=== PATIENT | male | born 1935 | race Caucasian/White ===

== ENCOUNTER 2017-04-09 10:22 | Inpatient (IN) | payer OTHER, MEDICARE ==
[2017-04-09] VITALS (10 sets, daily range): BP systolic 92–125; BP diastolic 50–64; PULSE 97–155; RESP 16–26; TEMP 96.3–98.3; O2SAT 76–98
[~2017-04-09] VITALS: Ht 172.7 cm; Wt 71.0 kg
[2017-04-09] MEDS ORDERED: SODIUM CHLORIDE 0.9% FLUSH 10 ML FLUSH IVF PRN (10:45)
[2017-04-09] MEDS ORDERED: SODIUM CHLORID 0.9% 500 ML INJ 500 ML IV ONE (10:45)
--- NOTE | 2017-04-09 10:49 | PD ---
HPI Chief Complaint: General Weakness Time Seen by Provider: 10:31 Travel History International Travel<30 days: No Contact w/Intl Traveler<30days: No Traveled to known affect area: No History of Present Illness HPI 81-year-old male arrives describing generalized weakness for 2 weeks. He reports weight loss and decreased appetite. He states his thighs feel atrophied. He's had difficulty walking. He does report some dyspnea on exertion. He denies orthopnea. He's had no fever or vomiting. He denies change in urination. He's had no medication change. PFSH Past Medical History Blood Disorders: No Heart Rhythm Problems: No Cancer: No Cardiovascular Problems: Yes High Cholesterol: Yes Chest Pain: No Congestive Heart Failure: No Diabetes: Yes (NEW ONSET ) Endocrine: Yes Genitourinary: Yes (TRANSURETRAL RESECTION PROSTATE\) Hypertension: Yes Immune Disorder: No Kidney Stones: No Musculoskeletal: No Neurologic: No Psychiatric: No Respiratory: No Myocardial Infarction: No Radiation Therapy: No Renal Failure: No Thyroid Disease: No Past Surgical History Abdominal Surgery: No AICD: No Cardiac Surgery: No Ear Surgery: No Endocrine Surgery: No Eye Surgery: No Genitourinary Surgery: Yes (TRANSURETHRAL RESECTION) Gynecologic Surgery: No Joint Replacement: No Oral Surgery: No Pacemaker: No Thoracic Surgery: No Social History Alcohol Use: No Tobacco Use: No Substance Use: No Allergies-Medications (Allergen,Severity, Reaction): Coded Allergies: No Known Allergies (Verified Allergy, Unknown, 02/04/06) Reported Meds & Prescriptions Reported Meds & Active Scripts Active Reported Aspirin Adult Low Strength (Aspirin) 81 Mg Tabdr 81 Mg PO DAILY Centrum Silver Adult 50+ (Multiple Vitamins W/ Minerals) 1 Tab Tab 1 Tab PO DAILY Metformin (Metformin HCl) 1,000 Mg Tab 1,000 Mg PO BID With meals Zocor (Simvastatin) 40 Mg Tab 40 Mg PO HS Vasotec (Enalapril Maleate) 10 Mg Tab 10 Mg PO DAILY Coreg (Carvedilol) 3.125 Mg Tab 3.125 Mg PO BID Review of Systems Except as stated in HPI: all other systems reviewed are Neg General / Constitutional: No: Fever Physical Exam Narrative GENERAL: 81-year-old male pleasant no acute distress SKIN: Focused skin assessment warm/dry. HEAD: Atraumatic. Normocephalic. EYES: Pupils equal and round. No scleral icterus. No injection or drainage. ENT: No nasal bleeding or discharge. Mucous membranes pink and moist. NECK: Trachea midline. No JVD. CARDIOVASCULAR: Tachycardia. Regular. RESPIRATORY: No accessory muscle use. Clear to auscultation. Breath sounds equal bilaterally. GASTROINTESTINAL: Soft. No focus of tenderness. MUSCULOSKELETAL: No obvious deformities. No clubbing. No cyanosis. No edema. NEUROLOGICAL: Awake and alert. No obvious cranial nerve deficits. Motor grossly within normal limits. Normal speech. PSYCHIATRIC: Appropriate mood and affect; insight and judgment normal. Data Data Last Documented VS Vital Signs Date Time Temp Pulse Resp B/P Pulse Ox O2 Delivery O2 Flow Rate FiO2 04/09/17 12:29 97 16 103/59 93 Nasal Cannula 2 temperature is 97.6 according to the nurse Orders Complete Blood Count With Diff (04/09/17 10:40) Comprehensive Metabolic Panel (04/09/17 10:40) B-Type Natriuretic Peptide (04/09/17 10:40) Act Partial Throm Time (Ptt) (04/09/17 10:40) Prothrombin Time / Inr (Pt) (04/09/17 10:40) Magnesium (Mg) (04/09/17 10:40) Ckmb (Isoenzyme) Profile (04/09/17 10:40) Troponin I (04/09/17 10:40) Urinalysis - C+S If Indicated (04/09/17 10:40) Iv Access Insert/Monitor (04/09/17 10:40) Electrocardiogram (04/09/17 10:40) Ecg Monitoring (04/09/17 10:40) Oximetry (04/09/17 10:40) Oxygen Administration (04/09/17 10:40) Chest, Single Ap (04/09/17 10:40) Sodium Chloride 0.9% Flush (Ns Flush) (04/09/17 10:45) Sodium Chlorid 0.9% 500 Ml Inj (Ns 500 M (04/09/17 10:45) CKMB (04/09/17 10:50) CKMB% (04/09/17 10:50) Admit Order (Ed Use Only) (04/09/17 13:20) Piperacil-Tazo 3.375 Gm Premix (Zosyn 3. (04/09/17 13:30) Labs Laboratory Tests Test 04/09/17 04/09/17 10:50 13:20 White Blood Count 7.5 TH/MM3 Red Blood Count 4.26 MIL/MM3 Hemoglobin 11.9 GM/DL Hematocrit 34.2 % Mean Corpuscular Volume 80.4 FL Mean Corpuscular Hemoglobin 27.9 PG Mean Corpuscular Hemoglobin 34.7 % Concent Red Cell Distribution Width 15.2 % Platelet Count 157 TH/MM3 Mean Platelet Volume 7.7 FL Neutrophils (%) (Auto) 68.2 % Lymphocytes (%) (Auto) 23.6 % Monocytes (%) (Auto) 6.8 % Eosinophils (%) (Auto) 0.7 % Basophils (%) (Auto) 0.7 % Neutrophils # (Auto) 5.1 TH/MM3 Lymphocytes # (Auto) 1.8 TH/MM3 Monocytes # (Auto) 0.5 TH/MM3 Eosinophils # (Auto) 0.1 TH/MM3 Basophils # (Auto) 0.1 TH/MM3 CBC Comment AUTO DIFF Differential Total Cells 100 Counted Neutrophils % (Manual) 50 % Band Neutrophils % 16 % Lymphocytes % 26 % Monocytes % 4 % Neutrophils # (Manual) 5.3 TH/MM3 Metamyelocytes 3 % Myelocytes 1 % Nucleated Red Blood Cells 1 /100 WBC Differential Comment FINAL DIFF MANUAL Platelet Estimate NORMAL Platelet Morphology Comment NORMAL Prothrombin Time 12.0 SEC Prothromb Time International 1.1 RATIO Ratio Activated Partial 27.3 SEC Thromboplast Time Sodium Level 131 MEQ/L Potassium Level 4.9 MEQ/L Chloride Level 96 MEQ/L Carbon Dioxide Level 23.1 MEQ/L Anion Gap 12 MEQ/L Blood Urea Nitrogen 45 MG/DL Creatinine 1.74 MG/DL Estimat Glomerular Filtration 38 ML/MIN Rate Random Glucose 158 MG/DL Calcium Level 9.5 MG/DL Magnesium Level 2.0 MG/DL Total Bilirubin 1.5 MG/DL Aspartate Amino Transf 99 U/L (AST/SGOT) Alanine Aminotransferase 15 U/L (ALT/SGPT) Alkaline Phosphatase 3613 U/L Total Creatine Kinase 1211 U/L Creatine Kinase MB 1.7 NG/ML Creatine Kinase MB % 0.1 % Troponin I 0.02 NG/ML B-Type Natriuretic Peptide 21 PG/ML Total Protein 6.9 GM/DL Albumin 3.1 GM/DL Urine Color LIGHT-YELLOW Urine Turbidity CLEAR Urine pH 5.0 Urine Specific [place] 1.009 Urine Protein NEG mg/dL Urine Glucose (UA) NEG mg/dL Urine Ketones NEG mg/dL Urine Occult Blood NEG Urine Nitrite NEG Urine Bilirubin NEG Urine Urobilinogen LESS THAN 2.0 MG/DL Urine Leukocyte Esterase NEG Urine RBC LESS THAN 1 /hpf Urine WBC 1 /hpf Urine Hyaline Casts 5 /lpf Urine Mucus FEW /lpf Microscopic Urinalysis Comment CULT NOT INDICATED MDM Medical Decision Making Medical Screen Exam Complete: Yes Emergency Medical Condition: Yes Medical Record Reviewed: Yes Differential Diagnosis UTI, electrolyte imbalance, Sepsis, anemia, renal failure, dehydration Narrative Course CBC & BMP Diagram 04/09/17 10:50 EKG reveals a sinus rhythm with a rate of 99 T bilirubin 1.5 AST 99 Alk phos 3613 Total CK 1211 Tn 0.02 BNP 21 Last 24 hours Impressions Chest X-Ray 04/09/17 1040 Signed Impressions: Service Date/Time: Sunday, April 09, 2017 10:46 - CONCLUSION: 1. No active disease. Pankaj Mena MD Heart rate is about 100 after 2 L of normal saline. Bandemia weakness elevated alkaline phosphatase in the 81-year-old male or concerned. Tachycardia on arrival concerning as well. Infectious process is of concern. Zosyn started. Possible neoplastic process. D/w Dr Alston of [facility]. Diagnosis Primary Impression: Bandemia without diagnosis of specific infection Additional Impressions: Weakness Elevated alkaline phosphatase level Admitting Information Admitting Physician Requests: Admit Morgan Santacruz MD April 09, 2017 10:49
[2017-04-09 11:10] LABS: AUTOMATED NEUTROPHIL # 5.1 TH/MM3 (1.8-7.7); BASOPHIL # 0.1 TH/MM3 (0-0.2); BASOPHIL % 0.7 % (0.0-2.0); EOSINOPHIL # 0.1 TH/MM3 (0-0.4); EOSINOPHIL % 0.7 % (0.0-4.0); HEMATOCRIT 34.2 % (39.0-51.0); LYMPH % 23.6 % (9.0-44.0); LYMPHOCYTE # 1.8 TH/MM3 (1.0-4.8); MEAN CELL VOLUME 80.4 FL (80.0-100.0); MEAN CORPUSCULAR HEMOGLOBIN 27.9 PG (27.0-34.0); MEAN CORPUSCULAR HGB CONC 34.7 % (32.0-36.0); MONO % 6.8 % (0.0-8.0); NEUT % 68.2 % (16.0-70.0); PLATELET COUNT 157 TH/MM3 (150-450); RED BLOOD COUNT 4.26 MIL/MM3 (4.50-5.90); RED CELL DISTRIBUTION WIDTH 15.2 % (11.6-17.2); WHITE BLOOD COUNT 7.5 TH/MM3 (4.0-11.0)
[2017-04-09 11:18] LABS: HEMO FLAGS AUTO DIFF
--- NOTE | 2017-04-09 11:25 | RADRPT ---
EXAM DATE/TIME: 04/09/2017 10:46 [facility] COMPARISON: No previous studies available for comparison. INDICATIONS : Short of breath MEDICAL HISTORY : Unknown SURGICAL HISTORY : Unknown ENCOUNTER: Initial ACUITY: 1 day PAIN SCORE: Non-responsive. LOCATION: Bilateral chest FINDINGS: A single view of the chest demonstrates the lungs to be symmetrically aerated without evidence of mas s, infiltrate or effusion. The cardiomediastinal contours are unremarkable except for atheroscleroti c and mildly tortuous aorta. 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 CONCLUSION: 1. No active disease. Pankaj Mena MD on April 09, 2017 at 11:22 Board Certified Radiologist. This report was verified electronically.
[2017-04-09 11:29] LABS: ALT (GPT) 15 U/L (12-78); ANION GAP 12 MEQ/L (5-15); AST (GOT) 99 U/L (15-37); BICARBONATE 23.1 MEQ/L (21.0-32.0); BLOOD UREA NITROGEN 45 MG/DL (7-18); CHLORIDE 96 MEQ/L (98-107); GLOMERULAR FILTRATION RATE 38 ML/MIN (>89); POTASSIUM 4.9 MEQ/L (3.5-5.1); SODIUM (NA) 131 MEQ/L (136-145)
[2017-04-09 11:32] LABS: APTT (PATIENT) 27.3 SEC (24.3-30.1); INTERNATIONAL NORMALIZED RATIO 1.1 RATIO
[2017-04-09 11:45] LABS: CREATINE KINASE 1211 U/L (39-308); TOTAL BILIRUBIN ADULT 1.5 MG/DL (0.2-1.0)
[2017-04-09 11:54] LABS: BANDS 16 % (0-6); CORRECTED NUCLEATED RBC 1 /100 WBC (0-0); METAMYELOCYTES 3 % (0-1); MYELOCYTES 1 % (0-0); NEUTROPHIL # MANUAL DIFF 5.3 TH/MM3 (1.8-7.7); POLYS (SEG NEUTROPHILS) 50 % (16-70); WBC DIFF SAMPLE 100
[2017-04-09 11:56] LABS: PLATELET ESTIMATE SMEAR NORMAL (NORMAL); PLATELET MORPHOLOGY NORMAL (NORMAL); SCAN/DIFF FINAL DIFF MANUAL
[2017-04-09 12:25] LABS: ALKALINE PHOSPHATASE 3613 U/L (45-117)
[2017-04-09 12:27] LABS: CKMB 1.7 NG/ML (0.5-3.6)
[2017-04-09] MEDS ORDERED: PIPERACIL-TAZO 3.375 GM PREMIX 50 ML IV ONE (13:30)
[2017-04-09 13:34] LABS: BLOOD, URINE NEG (NEG); COMMENT (UR) CULT NOT INDICATED; CULTURE IF INDICATED CULT NOT INDICATED; GLUCOSE,URINE NEG (NEG); HYALINE CAST, URINE 5 /lpf (RARE); KETONE, URINE NEG (NEG); MUCUS URINE FEW /lpf (OCC); NITRITE,URINE NEG (NEG); URINE COLOR LIGHT-YELLOW (YELLW/STRAW)
[2017-04-09] MEDS ORDERED: ASPI1TAB91 PO (13:36)
[2017-04-09] MEDS ORDERED: MULT1TAB PO (13:36)
[2017-04-09] MEDS ORDERED: VASO10TA8 PO (13:36)
[2017-04-09] MEDS ORDERED: ZOCO40TA PO (13:36)
[2017-04-09] MEDS ORDERED: METF1000 PO (13:36)
[2017-04-09] MEDS ORDERED: CARV3.125 PO (13:36)
[2017-04-09] MEDS ORDERED: ONDANSETRON HCL 4 MG/2 ML VIAL IVP PRN (13:45)
[2017-04-09] MEDS ORDERED: NALOXONE HCL 0.4 MG/ML AMP IV PRN (13:45)
[2017-04-09] MEDS ORDERED: SENNOSIDES 8.6 MG TAB PO PRN (13:45)
[2017-04-09] MEDS ORDERED: LACTULOSE SYRUP 20 GM/30 ML CUP PO PRN (13:45)
[2017-04-09] MEDS ORDERED: BISACODYL 10 MG SUPP RECTAL PRN (13:45)
[2017-04-09] MEDS ORDERED: MAGNESIUM HYDROXIDE SUSP 30 ML CUP PO PRN (13:45)
[2017-04-09] MEDS: SODIUM CHLOR 0.9% 1000 ML INJ 1,000 ML IV SCH (14:17)
--- NOTE | 2017-04-09 14:21 | HHI.HP ---
[facility] Service [facility] Primary Care Physician Unknown Admission Diagnosis Bandemia, Dehydration, Generalized Weakness Diagnoses: Chief Complaint: weight loss and fatigue Travel History International Travel<30 Days: No Contact w/Intl Traveler <30 Da: No Traveled to Known Affected Are: No History of Present Illness This is a pleasant 81-year-old male past medical history of coronary disease and congestive heart failure with ejection fraction of 30% who presented with 40 pound weight loss over 2 weeks, along with anorexia, and fatigue. Patient stated that he lost his appetite 2 weeks ago was not able to eat. Denying nausea vomiting or abdominal pain. Patient stated that he lost about 40 pounds over 2 weeks. He denies any fevers or chills. Denies any pain. Patient stated that he has never had a rectal exam or evaluation up for prostate cancer. Patient also stated that his last colonoscopy was done 8 years ago that was normal. Patient stated because of his severe weight loss he feels very fatigued and unable to ambulate due to weakness. Patient stated that he was scheduled for pacemaker with Dr. Callaway on April 15. Review of Systems Constitutional: COMPLAINS OF: Weight loss, DENIES: Diaphoretic episodes, Fatigue, Fever, Weight gain, Chills, Dizziness, Change in appetite, Night Sweats Endocrine: DENIES: Heat/cold intolerance, Polydipsia, Polyuria, Polyphagia Eyes: DENIES: Blurred vision, Diplopia, Eye inflammation, Eye pain, Vision loss , Photosensitivity, Double Vision Ears, nose, mouth, throat: DENIES: Tinnitus, Hearing loss, Vertigo, Nasal discharge, Oral lesions, Throat pain, Hoarseness, Ear Pain, Running Nose, Epistaxis, Sinus Pain, Toothache, Odynophagia Respiratory: DENIES: Apneas, Cough, Snoring, Wheezing, Hemoptysis, Sputum production, Shortness of breath Cardiovascular: DENIES: Chest pain, Palpitations, Syncope, Dyspnea on Exertion , PND, Lower Extremity Edema, Orthopnea, Claudication Gastrointestinal: COMPLAINS OF: Constipation, Anorexia, DENIES: Abdominal pain , Black stools, Bloody stools, Diarrhea, Nausea, Vomiting, Difficulty Swallowing Genitourinary: DENIES: Sexual dysfunction, Urinary frequency, Urinary incontinence, Urgency, Hematuria, Dysuria, Nocturia, Penile Discharge, Testicular Pain, Testicular Swelling Musculoskeletal: DENIES: Joint pain, Muscle aches, Stiffness, Joint Swelling, Back pain, Neck pain Integumentary: DENIES: Abnormal pigmentation, Nail changes, Pruritus, Rash Hematologic/lymphatic: DENIES: Bruising, Lymphadenopathy Immunologic/allergic: DENIES: Eczema, Urticaria Neurologic: DENIES: Abnormal gait, Headache, Localized weakness, Paresthesias, Seizures, Speech Problems, Tremor, Poor Balance Psychiatric: DENIES: Anxiety, Confusion, Mood changes, Depression, Hallucinations, Agitation, Suicidal Ideation, Homicidal Ideation, Delusions Past Family Social History Past Medical History Coronary artery disease Congestive heart failure with ejection fracture 30% Type 2 diabetes. Past Surgical History Denies any past surgical history. Reported Medications Reported Meds & Active Scripts Active Reported Aspirin Adult Low Strength (Aspirin) 81 Mg Tabdr 81 Mg PO DAILY Centrum Silver Adult 50+ (Multiple Vitamins W/ Minerals) 1 Tab Tab 1 Tab PO DAILY Metformin (Metformin HCl) 1,000 Mg Tab 1,000 Mg PO BID With meals Zocor (Simvastatin) 40 Mg Tab 40 Mg PO HS Vasotec (Enalapril Maleate) 10 Mg Tab 10 Mg PO DAILY Coreg (Carvedilol) 3.125 Mg Tab 3.125 Mg PO BID Allergies: Coded Allergies: No Known Allergies (Verified Allergy, Unknown, 02/04/06) Active Ordered Medications Current Medications Sodium Chloride 2 ml 2 ml UNSCH PRN IVF FLUSH AFTER USING IV ACCESS; Start at 10:45 Sodium Chloride 500 ml @ 500 mls/hr BOLUS ONCE IV Last administered on t 11:10; Start 04/09/17 at 10:45; Stop 04/09/17 at 11:44; Status DC Piperacillin Sod/ Tazobactam Sod (Zosyn 3.375 Gm Premix) 50 ml @ 100 mls/hr ONCE ONCE IV ; Start 04/09/17 at 13:30; Stop 04/09/17 at 13:59; Status DC Aspirin (Ecotrin Ec) 81 mg DAILY PO ; Start 04/10/17 at 09:00 Carvedilol (Coreg) 3.125 mg BID PO ; Start 04/09/17 at 21:00 Multivitamins/ Minerals Therapeutic (Theragran M Tab) 1 tab DAILY PO ; Start at 09:00 Pravastatin Sodium 80 mg 80 mg HS PO ; Start 04/09/17 at 21:00 Sodium Chloride (NS 1000 ml Inj) 1,000 ml @ 100 mls/hr Q10H IV ; Start at 13:44 Sodium Chloride (NS Flush) 2 ml UNSCH PRN IV FLUSH FLUSH AFTER USING IV ACCESS ; Start 04/09/17 at 13:45 Sodium Chloride (NS Flush) 2 ml BID IV FLUSH ; Start 04/09/17 at 21:00 Acetaminophen (Tylenol) 650 mg Q4H PRN PO TEMP > 100.4; Start 04/09/17 at 13:45 Ondansetron HCl (Zofran Inj) 4 mg Q6H PRN IVP NAUSEA OR VOMITING; Start at 13:45 Enoxaparin Sodium (Lovenox Inj) 40 mg Q24H SQ ; Start 04/09/17 at 15:00 Naloxone HCl (Narcan Inj) 0.4 mg UNSCH PRN IV SEE LABEL COMMENTS; Start at 13:45 Senna/Docusate Sodium (Kylee-Colace) 1 tab BID PO ; Start 04/09/17 at 21:00 Magnesium Hydroxide (Milk Of Magnesia Liq) 30 ml Q12H PRN PO MILD - MODERATE CONSTIPATION; Start 04/09/17 at 13:45 Sennosides (Senokot) 17.2 mg Q12H PRN PO MODERATE - SEVERE CONSTIPATION; Start 04/09/17 at 13:45 Bisacodyl (Dulcolax Supp) 10 mg DAILY PRN RECTAL SEVERE CONSITIPATION; Start at 13:45 Lactulose (Lactulose Liq) 30 ml DAILY PRN PO SEVERE CONSITIPATION; Start at 13:45 Family History Patient stated that his father at the age of 50 due to [facility]. Social History Denying tobacco or alcohol use. Patient lives by himself. Physical Exam Vital Signs Vital Signs Date Time Temp Pulse Resp B/P Pulse Ox O2 Delivery O2 Flow Rate FiO2 04/09/17 12:29 97 16 103/59 93 Nasal Cannula 2 04/09/17 10:40 91 04/09/17 10:40 95 2 04/09/17 10:39 100 18 125/64 92 Room Air 04/09/17 10:35 92 Room Air 04/09/17 10:26 120 24 92/50 91 Room Air Physical Exam GENERAL: This is a well-nourished, well-developed patient, in no apparent distress. SKIN: No rashes, ecchymoses or lesions. Cool and dry. HEAD: Atraumatic. Normocephalic. No temporal or scalp tenderness. EYES: Pupils equal round and reactive. Extraocular motions intact. No scleral icterus. No injection or drainage. ENT: Nose without bleeding, purulent drainage or septal hematoma. Throat without erythema, tonsillar hypertrophy or exudate. Uvula midline. Airway patent. NECK: Trachea midline. No JVD or lymphadenopathy. Supple, nontender, no meningeal signs. CARDIOVASCULAR: Regular rate and rhythm without murmurs, gallops, or rubs. RESPIRATORY: Clear to auscultation. Breath sounds equal bilaterally. No wheezes , rales, or rhonchi. GASTROINTESTINAL: Abdomen soft, non-tender, nondistended. No hepato-splenomegaly , or palpable masses. No guarding. MUSCULOSKELETAL: Extremities without clubbing, cyanosis, or edema. No joint tenderness, effusion, or edema noted. No calf tenderness. Negative Homans sign bilaterally. NEUROLOGICAL: Awake and alert. Cranial nerves II through XII intact. Motor and sensory grossly within normal limits. Five out of 5 muscle strength in all muscle groups. Normal speech. Laboratory Laboratory Tests Test 04/09/17 04/09/17 10:50 13:20 White Blood Count 7.5 Red Blood Count 4.26 Hemoglobin 11.9 Hematocrit 34.2 Mean Corpuscular Volume 80.4 Mean Corpuscular Hemoglobin 27.9 Mean Corpuscular Hemoglobin 34.7 Concent Red Cell Distribution Width 15.2 Platelet Count 157 Mean Platelet Volume 7.7 Neutrophils (%) (Auto) 68.2 Lymphocytes (%) (Auto) 23.6 Monocytes (%) (Auto) 6.8 Eosinophils (%) (Auto) 0.7 Basophils (%) (Auto) 0.7 Neutrophils # (Auto) 5.1 Lymphocytes # (Auto) 1.8 Monocytes # (Auto) 0.5 Eosinophils # (Auto) 0.1 Basophils # (Auto) 0.1 CBC Comment AUTO DIFF Differential Total Cells 100 Counted Neutrophils % (Manual) 50 Band Neutrophils % 16 Lymphocytes % 26 Monocytes % 4 Neutrophils # (Manual) 5.3 Metamyelocytes 3 Myelocytes 1 Nucleated Red Blood Cells 1 Differential Comment FINAL DIFF MANUAL Platelet Estimate NORMAL Platelet Morphology Comment NORMAL Prothrombin Time 12.0 Prothromb Time International 1.1 Ratio Activated Partial 27.3 Thromboplast Time Sodium Level 131 Potassium Level 4.9 Chloride Level 96 Carbon Dioxide Level 23.1 Anion Gap 12 Blood Urea Nitrogen 45 Creatinine 1.74 Estimat Glomerular Filtration 38 Rate Random Glucose 158 Calcium Level 9.5 Magnesium Level 2.0 Total Bilirubin 1.5 Aspartate Amino Transf 99 (AST/SGOT) Alanine Aminotransferase 15 (ALT/SGPT) Alkaline Phosphatase 3613 Total Creatine Kinase 1211 Creatine Kinase MB 1.7 Creatine Kinase MB % 0.1 Troponin I 0.02 B-Type Natriuretic Peptide 21 Total Protein 6.9 Albumin 3.1 Urine Color LIGHT-YELLOW Urine Turbidity CLEAR Urine pH 5.0 Urine Specific [place] 1.009 Urine Protein NEG Urine Glucose (UA) NEG Urine Ketones NEG Urine Occult Blood NEG Urine Nitrite NEG Urine Bilirubin NEG Urine Urobilinogen LESS THAN 2.0 Urine Leukocyte Esterase NEG Urine RBC LESS THAN 1 Urine WBC 1 Urine Hyaline Casts 5 Urine Mucus FEW Microscopic Urinalysis Comment CULT NOT INDICATED Result Diagram: 04/09/17 1050 04/09/17 1050 Imaging Last Impressions Chest X-Ray 04/09/17 1040 Signed Impressions: Service Date/Time: Sunday, April 09, 2017 10:46 - CONCLUSION: 1. No active disease. Pankaj Mena MD Assessment and Plan Assessment and Plan 81-year-old male with General weakness/anorexia/40 pound weight loss over 2 weeks -Labs were obtained which showed elevated alkaline phosphatase and 3000. -Concerning for malignancy. Patient is asymptomatic except for anorexia. -We will get a GGT, PSA, CEA, CA 199. -Patient will need a CT scan but due to elevated renal function will need to hold off on that until improvement. Mildly elevated LFT -Patient is asymptomatic. -Will get a liver ultrasound. Type 2 diabetes -Due to renal sufficiency and anticipating contrast use will hold metformin. -Will put patient on insulin sliding scale. Acute versus chronic renal sufficiency -There is no baseline for comparison. -Patient does have elevated CK. We'll continue to monitor. Will give IV fluids. Patient already given normal stables in the ED. -Strict ins and outs. Rhabdomyolysis -Mild. -Will give IV fluids. Continue to monitor. Coronary artery disease/congestive heart failure -Will hold antihypertensive due to low blood pressure. -Otherwise resume aspirin. DVT prophylaxis -Lovenox renally dosed. Code Status full Discussed Condition With patient Physician Certification 2 Midnight Certification Type: Admission for Inpatient Services Order for Inpatient Services The services are ordered in accordance with Medicare regulations or non- Medicare payer requirements, as applicable. In the case of services not specified as inpatient-only, they are appropriately provided as inpatient services in accordance with the 2-midnight benchmark. Estimated LOS (days): 3 3 days is the estimated time the patient will need to remain in the hospital, assuming treatment plan goals are met and no additional complications. Post-Hospital Plan: Joanna Yip MD April 09, 2017 14:21
[2017-04-09] MEDS ORDERED: GLUCAGON 1 MG/ML VIAL OTHER PRN (14:30)
[2017-04-09] MEDS ORDERED: DEXTROSE 50% IN WATER 50 ML VIAL(D50) IV PRN (14:30)
[2017-04-09] MEDS ORDERED: ENOXAPARIN SODIUM 40 MG/0.4 ML SYRINGE SQ SCH (15:00)
[2017-04-09] MEDS: ENOXAPARIN SODIUM 40 MG/0.4 ML SYRINGE SQ SCH (15:09)
--- NOTE | 2017-04-09 16:02 | RADRPT ---
EXAM DATE/TIME: 04/09/2017 14:35 [facility] COMPARISON: No previous studies available for comparison. INDICATIONS : Increased lab values. MEDICAL HISTORY : Hypercholesterolemia. Hypertension. Diabetes. SURGICAL HISTORY : Transuretral resection prostate. ENCOUNTER: Initial ACUITY: 1 day PAIN SCORE: 0/10 LOCATION: Bilateral upper quadrant MEASUREMENTS: LIVER: 16.8 cm length COMMON DUCT: 5 mm RIGHT KIDNEY: 10.4 x 4.8 x 5.1 cm SPLEEN: 9.2 cm length FINDINGS: Ultrasound of the upper abdomen demonstrates increased echogenicity of the liver compatible with fatt y infiltration or hepatocellular disease. The spleen is unremarkable. There are multiple stones withi n the gallbladder without wall thickening or pericholecystic fluid the largest measuring 2 cm. Sludge is also present within the gallbladder. The visualized portion of the pancreas is unremarkable thoug h the entire gland is not visualized secondary to overlying bowel gas. There is a single simple cyst in the right kidney measuring 4.4 cm which is also echogenic characteristic of medical renal disease. CONCLUSION: 1. Cholelithiasis. 2. Echogenic liver compatible with fatty infiltration or hepatocellular disease. Alexandru Souza MD on April 09, 2017 at 15:58 Board Certified Radiologist. This report was verified electronically.
[2017-04-09] MEDS: INSULIN ASPART SUPPLEMENTAL SCALE SQ SCH ×2 (17:41→19:59)
[2017-04-09] MEDS: SODIUM CHLORIDE 0.9% FLUSH 10 ML FLUSH IV FLUSH SCH (19:47)
[2017-04-09] MEDS: DOCUSATE SODIUM 50 MG/SENNA 8.6 MG TAB PO SCH (19:47)
[2017-04-09] MEDS: CARVEDILOL 3.125 MG TAB PO SCH (19:49)
[2017-04-09] MEDS ORDERED: PRAVASTATIN SOD 80 MG TAB PO SCH (21:00)
--- NOTE | 2017-04-09 23:21 | HHI.PR ---
Subjective Remarks Frail, elderly man admitted earlier today with dehydration and general fatigue, recent weight loss. Has developed sustained tachycardia to 130s with increased O2 requirements. Lungs clear, comfortable respiratory pattern. Neck veins flat. Skin warm centrally, tepid peripherally. Abdomen benign, soft, no guarding. Skin turgor decreased. Labs reviewed. NOHEMI. Bandemia noteworthy. Impression: This may be simple dehydration but I'd be inclined to treat for sepsis as well. Continue PIP/DEMETRI, add blood cultures. Bolus with additional liter NS. Reassess. Leave on 7th floor for now. Objective Vital Signs Date Time Temp Pulse Resp B/P Pulse Ox O2 Delivery O2 Flow Rate FiO2 04/09/17 20:00 96.9 118 20 114/56 92 04/09/17 15:35 96.3 97 20 118/58 95 04/09/17 14:22 99 18 114/61 94 Nasal Cannula 2 04/09/17 12:29 97 16 103/59 93 Nasal Cannula 2 04/09/17 10:40 91 04/09/17 10:40 95 2 04/09/17 10:39 100 18 125/64 92 Room Air 04/09/17 10:35 92 Room Air 04/09/17 10:26 120 24 92/50 91 Room Air I/O 04/08/17 04/08/17 04/08/17 04/09/17 04/09/17 04/09/17 07:00 15:00 23:00 07:00 15:00 23:00 Intake Total 360 ml Output Total 200 ml Balance 160 ml Intake Oral 360 ml Output Urine Total 200 ml # Voids 1 Result Diagram: 04/09/17 1050 04/09/17 1050 Abimael Jeffers MD April 09, 2017 23:21
[2017-04-09] MEDS ORDERED: SODIUM CHLOR 0.9% 1000 ML INJ 1,000 ML IV ONE (23:45)
[2017-04-10] VITALS (17 sets, daily range): BP systolic 74–121; BP diastolic 43–56; PULSE 103–150; RESP 20–35; TEMP 97.9–99.3; O2SAT 76–100
[2017-04-10] MEDS: LEVOFLOXACIN 750 MG PREMIX INJ 150 ML IV SCH (00:31)
[2017-04-10] MEDS: SODIUM CHLOR 0.9% 1000 ML INJ 1,000 ML IV SCH ×3 (00:32→17:40)
[2017-04-10] MEDS: PIPERACIL-TAZO 3.375 GM PREMIX 50 ML IV SCH ×4 (02:12→16:44)
[2017-04-10] MEDS ORDERED: NOREPINEPHRINE-DEXTROSE DRIP 250 ML IV ONE (03:20)
--- NOTE | 2017-04-10 03:42 | PD.CONS ---
[facility] Service Critical Care Medicine Consult Requested By [facility] Reason for Consult Severe sepsis. Primary Care Physician Unknown History of Present Illness Frail, elderly man admitted earlier today with dehydration and general fatigue, recent weight loss. Has developed sustained tachycardia to 130s with increased O2 requirements. Now with worsening hypotension requiring vasopressor support. Review of Systems ROS No abdominal pain. No SOB. Past Family Social History Allergies: Coded Allergies: No Known Allergies (Verified Allergy, Unknown, 02/04/06) Physical Exam Vital Signs Vital Signs Date Time Temp Pulse Resp B/P Pulse Ox O2 Delivery O2 Flow Rate FiO2 04/10/17 03:25 99 Non-Rebreather 10.00 100 04/10/17 00:00 98.3 150 26 113/52 76 04/09/17 23:23 124 04/09/17 22:46 98 15.00 04/09/17 20:00 96.9 118 20 114/56 92 04/09/17 15:35 96.3 97 20 118/58 95 04/09/17 14:22 99 18 114/61 94 Nasal Cannula 2 04/09/17 12:29 97 16 103/59 93 Nasal Cannula 2 04/09/17 10:40 91 04/09/17 10:40 95 2 04/09/17 10:39 100 18 125/64 92 Room Air 04/09/17 10:35 92 Room Air 04/09/17 10:26 120 24 92/50 91 Room Air Physical Exam SBP 76, P 122, R 17, T 99.7 Head: Normal. Neck: Supple, airway widely patent. Lungs: Clear, no wheezes or crackles. Heart: Tachycardia at 120s, neck veins are flat. Abdomen: Soft, nontender, firm RUQ liver. No guarding or peritoneal irritation. Extremities: tepid, well perfused. Neuro: Lethargic, moves 4 limbs to command. Protects airway. Laboratory Laboratory Tests Test 04/09/17 04/09/17 04/09/17 04/10/17 10:50 13:20 18:37 00:05 White Blood Count 7.5 Red Blood Count 4.26 Hemoglobin 11.9 Hematocrit 34.2 Mean Corpuscular Volume 80.4 Mean Corpuscular Hemoglobin 27.9 Mean Corpuscular Hemoglobin 34.7 Concent Red Cell Distribution Width 15.2 Platelet Count 157 Mean Platelet Volume 7.7 Neutrophils (%) (Auto) 68.2 Lymphocytes (%) (Auto) 23.6 Monocytes (%) (Auto) 6.8 Eosinophils (%) (Auto) 0.7 Basophils (%) (Auto) 0.7 Neutrophils # (Auto) 5.1 Lymphocytes # (Auto) 1.8 Monocytes # (Auto) 0.5 Eosinophils # (Auto) 0.1 Basophils # (Auto) 0.1 CBC Comment AUTO DIFF Differential Total Cells 100 Counted Neutrophils % (Manual) 50 Band Neutrophils % 16 Lymphocytes % 26 Monocytes % 4 Neutrophils # (Manual) 5.3 Metamyelocytes 3 Myelocytes 1 Nucleated Red Blood Cells 1 Differential Comment FINAL DIFF MANUAL Platelet Estimate NORMAL Platelet Morphology Comment NORMAL Prothrombin Time 12.0 Prothromb Time International 1.1 Ratio Activated Partial 27.3 Thromboplast Time Sodium Level 131 Potassium Level 4.9 Chloride Level 96 Carbon Dioxide Level 23.1 Anion Gap 12 Blood Urea Nitrogen 45 Creatinine 1.74 Estimat Glomerular Filtration 38 Rate Random Glucose 158 Calcium Level 9.5 Magnesium Level 2.0 Total Bilirubin 1.5 Gamma Glutamyl Transpeptidase 53 Aspartate Amino Transf 99 (AST/SGOT) Alanine Aminotransferase 15 (ALT/SGPT) Alkaline Phosphatase 3613 Total Creatine Kinase 1211 Creatine Kinase MB 1.7 Creatine Kinase MB % 0.1 Troponin I 0.02 B-Type Natriuretic Peptide 21 Total Protein 6.9 Albumin 3.1 Urine Color LIGHT-YELLOW Urine Turbidity CLEAR Urine pH 5.0 Urine Specific Corinna 1.009 Urine Protein NEG Urine Glucose (UA) NEG Urine Ketones NEG Urine Occult Blood NEG Urine Nitrite NEG Urine Bilirubin NEG Urine Urobilinogen LESS THAN 2.0 Urine Leukocyte Esterase NEG Urine RBC LESS THAN 1 Urine WBC 1 Urine Hyaline Casts 5 Urine Mucus FEW Microscopic Urinalysis Comment CULT NOT INDICATED Carcinoembryonic Antigen 4.6 CA 19-9 Antigen 24.3 Lactic Acid Level 2.6 Date/Time Procedure Status Source Growth 04/10/17 00:15 Aerobic Blood Culture Received Blood Peripheral Pending 04/10/17 00:15 Anaerobic Blood Culture Received Blood Peripheral Pending Result Diagram: 04/09/17 1050 04/09/17 1050 Assessment and Plan Assessment and Plan Assessment: 1. Severe sepsis. 2. NOHEMI.. 3. Recent weight loss. 4. DM, 2 Plan: 1. Move to [facility]. 2. Levophed too keep MAP > 65. 3. [place]. 4. Aggressive hydration. 5. Review cultures. 6. Lactic acid, serial. 7. Protonix. 8. Heparin sq bid. Overall impression: This man is critically ill with ongoing severe sepsis and deteriorating hemodynamic status. He will require continued fluid resuscitation , antibiotics, and electrolyte adjustments during the next 12 hours. Critical Care 38 mins Abimael Jeffers MD April 10, 2017 03:42
[2017-04-10] MEDS: NOREPINEPHRINE 4 MG/D5W 250 ML IV SCH ×2 (05:46→11:30)
[2017-04-10] MEDS ORDERED: CHLORHEXIDINE GLUCONATE 2 % 1 PACK (2 CLOTHS)(extra cloths) TOPICAL PRN (06:30)
[2017-04-10] MEDS: INSULIN ASPART SUPPLEMENTAL SCALE SQ SCH (06:30)
[2017-04-10] MEDS: CARVEDILOL 3.125 MG TAB PO SCH (09:00)
[2017-04-10] MEDS: DOCUSATE SODIUM 50 MG/SENNA 8.6 MG TAB PO SCH ×2 (09:01→23:42)
[2017-04-10] MEDS: MULTIVITAMINS/MINERALS THERAPEUTIC TAB PO SCH (09:01)
[2017-04-10] MEDS: SODIUM CHLORIDE 0.9% FLUSH 10 ML FLUSH IV FLUSH SCH ×2 (09:02→21:00)
[2017-04-10] MEDS: ASPIRIN EC 81 MG TABEC PO SCH (09:02)
[2017-04-10 10:29] LABS: HEMATOCRIT 29.5 % (39.0-51.0); MEAN CELL VOLUME 80.6 FL (80.0-100.0); MEAN CORPUSCULAR HEMOGLOBIN 28.5 PG (27.0-34.0); MEAN CORPUSCULAR HGB CONC 35.3 % (32.0-36.0); PLATELET COUNT 113 TH/MM3 (150-450); RED BLOOD COUNT 3.66 MIL/MM3 (4.50-5.90); RED CELL DISTRIBUTION WIDTH 15.5 % (11.6-17.2); REVIEW FLAG FINAL; WHITE BLOOD COUNT 9.5 TH/MM3 (4.0-11.0)
--- NOTE | 2017-04-10 10:43 | HHI.CCPN ---
Subjective Remarks/Hospital Course Frail, elderly man admitted earlier today with dehydration and general fatigue, recent weight loss. Has developed sustained tachycardia to 130s with increased O2 requirements. Now with worsening hypotension requiring vasopressor support. 04/10 Patient is on Levophed 23 mics. Afebrile. Denies any CP/SOB, N/V abdominal pain Objective Vital Signs Date Time Temp Pulse Resp B/P Pulse Ox O2 Delivery O2 Flow Rate FiO2 04/10/17 08:58 94 Nasal Cannula 3.00 04/10/17 04:00 98.0 109 32 85/48 04/10/17 03:25 100 Intake and Output 04/09/17 04/09/17 04/10/17 08:00 16:00 00:00 Intake Total 2160 ml Output Total 700 ml Balance 1460 ml Result Diagram: 04/10/17 1012 04/09/17 1050 Other Results Laboratory Tests Test 04/09/17 04/09/17 04/09/17 04/10/17 10:50 13:20 18:37 00:05 White Blood Count 7.5 TH/MM3 Red Blood Count 4.26 MIL/MM3 Hemoglobin 11.9 GM/DL Hematocrit 34.2 % Mean Corpuscular Volume 80.4 FL Mean Corpuscular Hemoglobin 27.9 PG Mean Corpuscular Hemoglobin 34.7 % Concent Red Cell Distribution Width 15.2 % Platelet Count 157 TH/MM3 Mean Platelet Volume 7.7 FL Neutrophils (%) (Auto) 68.2 % Lymphocytes (%) (Auto) 23.6 % Monocytes (%) (Auto) 6.8 % Eosinophils (%) (Auto) 0.7 % Basophils (%) (Auto) 0.7 % Neutrophils # (Auto) 5.1 TH/MM3 Lymphocytes # (Auto) 1.8 TH/MM3 Monocytes # (Auto) 0.5 TH/MM3 Eosinophils # (Auto) 0.1 TH/MM3 Basophils # (Auto) 0.1 TH/MM3 CBC Comment AUTO DIFF Differential Total Cells 100 Counted Neutrophils % (Manual) 50 % Band Neutrophils % 16 % Lymphocytes % 26 % Monocytes % 4 % Neutrophils # (Manual) 5.3 TH/MM3 Metamyelocytes 3 % Myelocytes 1 % Nucleated Red Blood Cells 1 /100 WBC Differential Comment FINAL DIFF MANUAL Platelet Estimate NORMAL Platelet Morphology Comment NORMAL Prothrombin Time 12.0 SEC Prothromb Time International 1.1 RATIO Ratio Activated Partial 27.3 SEC Thromboplast Time Sodium Level 131 MEQ/L Potassium Level 4.9 MEQ/L Chloride Level 96 MEQ/L Carbon Dioxide Level 23.1 MEQ/L Anion Gap 12 MEQ/L Blood Urea Nitrogen 45 MG/DL Creatinine 1.74 MG/DL Estimat Glomerular Filtration 38 ML/MIN Rate Random Glucose 158 MG/DL Calcium Level 9.5 MG/DL Magnesium Level 2.0 MG/DL Total Bilirubin 1.5 MG/DL Gamma Glutamyl Transpeptidase 53 U/L Aspartate Amino Transf 99 U/L (AST/SGOT) Alanine Aminotransferase 15 U/L (ALT/SGPT) Alkaline Phosphatase 3613 U/L Total Creatine Kinase 1211 U/L Creatine Kinase MB 1.7 NG/ML Creatine Kinase MB % 0.1 % Troponin I 0.02 NG/ML B-Type Natriuretic Peptide 21 PG/ML Total Protein 6.9 GM/DL Albumin 3.1 GM/DL Urine Color LIGHT-YELLOW Urine Turbidity CLEAR Urine pH 5.0 Urine Specific [place] 1.009 Urine Protein NEG mg/dL Urine Glucose (UA) NEG mg/dL Urine Ketones NEG mg/dL Urine Occult Blood NEG Urine Nitrite NEG Urine Bilirubin NEG Urine Urobilinogen LESS THAN 2.0 MG/DL Urine Leukocyte Esterase NEG Urine RBC LESS THAN 1 /hpf Urine WBC 1 /hpf Urine Hyaline Casts 5 /lpf Urine Mucus FEW /lpf Microscopic Urinalysis Comment CULT NOT INDICATED Carcinoembryonic Antigen 4.6 NG/ML CA 19-9 Antigen 24.3 U/ML Lactic Acid Level 2.6 mmol/L Test 04/10/17 10:12 White Blood Count 9.5 TH/MM3 Red Blood Count 3.66 MIL/MM3 Hemoglobin 10.4 GM/DL Hematocrit 29.5 % Mean Corpuscular Volume 80.6 FL Mean Corpuscular Hemoglobin 28.5 PG Mean Corpuscular Hemoglobin 35.3 % Concent Red Cell Distribution Width 15.5 % Platelet Count 113 TH/MM3 Mean Platelet Volume 7.5 FL Imaging Last Impressions Chest X-Ray 04/09/17 1040 Signed Impressions: Service Date/Time: Sunday, April 09, 2017 10:46 - CONCLUSION: 1. No active disease. Pankaj Mena MD Liver Ultrasound 04/09/17 0000 Signed Impressions: Service Date/Time: Sunday, April 09, 2017 14:35 - CONCLUSION: 1. Cholelithiasis. 2. Echogenic liver compatible with fatty infiltration or hepatocellular disease. Alexandru Souza MD Objective Remarks GENERAL: Patient is 81 yo lying in bed in NAD SKIN: Warm and dry. HEAD: Normocephalic. EYES: No scleral icterus. No injection or drainage. NECK: Supple, trachea midline. No JVD or lymphadenopathy. CARDIOVASCULAR: Regular rate and rhythm without murmurs, gallops, or rubs. RESPIRATORY: Breath sounds equal bilaterally. No accessory muscle use. GASTROINTESTINAL: Abdomen soft, non-tender, nondistended. MUSCULOSKELETAL: No cyanosis, or edema. BACK: Nontender without obvious deformity. No CVA tenderness. Neuro: Awake and alert. A/P Assessment and Plan 1)Resp Insuff 2)Sepsis. 3)NOHEMI.. 4)Elevated CK's 5)Dehydration 6)Anemia 7)Hx HTN 8)Hx DM 9)Elevated LFT's Plan: Neuro: Awake and alert Pulm: Continue with oxygen keep sat >92% Bronchodilators CV: Wean off Levophed keep MAP>65mmHg Will give 1L NS bolus then NS@125ml/hr, CVP monitoring Check echo to eval V function. Continue with ASA 81mg daily, hold Pravachol for elevated LFT : Monitor renal function, I/O's, electrolytes replacement as needed. Continue with IVF- monitor CK's. GI: On PO diet, place on Protonix 40mg daily for GI prophylaxis Monitor LFT;s, US Liver: Cholelithiasis. Echogenic liver compatible with fatty infiltration or hepatocellular disease. GI eval, check AFP, check CT abd/pelvis ID: Continue with abx ( Zosyn, Levaquin)monitor for signs of infections ( fever , WBC) Follow up on BC. CXR: No acute disease, UA unremarkable. Heme: Monitor CBC Endo: SSI with accuchecks GI prophylaxis- Protonix 40mg daily DVT prophylaxis- Lovenox 30mg daily Place central line for hemodynamic monitoring Patient is critically ill with sepsis, ARF, lactic acidemia CCT 30 mins Cherelle Palmer MD April 10, 2017 10:43 Cherelle Palmer MD April 10, 2017 10:43
[2017-04-10] MEDS ORDERED: SODIUM CHLOR 0.9% 1000 ML INJ 1,000 ML IV ONE ×2 (10:45→14:45)
[2017-04-10 10:51] LABS: BICARBONATE 19.4 MEQ/L (21.0-32.0); POTASSIUM 4.8 MEQ/L (3.5-5.1)
[2017-04-10] MEDS ORDERED: DEXTROSE 50% IN WATER 50 ML VIAL(D50) IV PRN (11:15)
[2017-04-10] MEDS ORDERED: GLUCAGON 1 MG/ML VIAL OTHER PRN (11:15)
[2017-04-10] MEDS: PANTOPRAZOLE SODIUM 40 MG VIAL IV PUSH SCH (11:20)
[2017-04-10] MEDS: INSULIN NovoLIN REGULAR SUPPLEMENTAL SCALE SQ SCH ×3 (11:23→23:15)
[2017-04-10] MEDS ORDERED: HYDROCORTISONE SOD SUCCINATE 100 MG VIAL IV PUSH SCH (12:00)
[2017-04-10 12:02] LABS: INDIRECT BILIRUBIN 2.1 MG/DL (0.0-0.8); TOTAL BILIRUBIN ADULT 4.6 MG/DL (0.2-1.0)
[2017-04-10 12:10] LABS: CKMB 1.4 NG/ML (0.5-3.6)
[2017-04-10] MEDS ORDERED: INSULIN ASPART SUPPLEMENTAL SCALE SQ SCH (13:00)
--- NOTE | 2017-04-10 14:18 | PD.PROCEDR ---
Central Line Procedure REASON FOR PROCEDURE Central venous access PROCEDURE PERFORMED Central line placement: Right IJ CVP CONSENT Informed consent for procedure was obtained. The risks and benefits of the procedure were discussed to include but limited to bleeding, clot formation, infection, and even . ANESTHESIA Local injection of 1% Lidocaine DESCRIPTION OF THE PROCEDURE The patient was placed in supine, mild Trendelenburg position. The area was exposed and cleansed with ChloraPrep, times two. Large sterile drape was used to cover the patient, with the site exposed, under sterile conditions including cap, face mask, sterile gown, and sterile gloves. On single attempt, the introducer needle was inserted with negative pressure in syringe and venous flash was obtained. The guide wire was then advanced without any restriction and the needle was removed. The dilator was used without any complications. Using Seldinger technique the catheter was advanced over the guide wire to a depth of 20 centimeters. The guide wire was removed. All ports were aspirated with dark venous blood return and flushed easily with sterile saline. All ports were capped. Antibiotic disc was placed around central line at puncture site. The central line was secured to the skin with two interrupted 2.0 silk sutures. The area was bandaged with sterile see-through central line bandage. RADIOLOGICAL DATA US used to localize IJ vein. CXR ordered to verify line placement COMPLICATIONS: No apparent complications ESTIMATED BLOOD LOSS: Less than 1 cc. Cherelle Palmer MD April 10, 2017 14:18
--- NOTE | 2017-04-10 15:06 | PD.CONS ---
HPI History of Present Illness Mr. Luis is a 81 y/o male with CAD, diabetes and CHF with EF of 30%. He was admitted to [facility] on 04/09/17 with generalized weakness, 40 pound weight loss over 2 weeks, anorexia, and fatigue. Patient stated that he lost his appetite 2 weeks ago has not been eating much. He also reports that for the last week or so he has had mid abdominal discomfort. Pt is unable to really describe the discomfort. He states that he has felt more constipated as well. He last had a BM 3 days ago which was reportedly normal. Pt denies any nausea/vomiting, diarrhea, fevers or chills. Patient stated that he has never had a rectal exam or evaluation up for prostate cancer. Patient also stated that his last colonoscopy was done 8 years ago that was normal. He reports that he is scheduled for pacemaker placement with Dr. Pa on 04/15/17. His WBC count was stable at admission. His LFTs were elevated espeically his AlkPhos was 3613. Transaminases were slightly elevated with AST 99, ALT 15, and Tbili was 1.5. GGT was 53. PSA was ordered and is pending. CEA was 4,6, CA 19-9 was 24.3, and AFP was 0.8. His Lactic acid was elevated at admission to 2.6 and repeat increased to 3.5 today. He was transferred to [facility] during the night last night with sustained tachycardia into the 130s with increased O2 requirements, and hypotension requiring vasopressor support. Liver US noted cholelithiasis and echogenic liver compatible with fatty infiltration or hepatocellular disease. Repeat LFTs today noted Tbili 4.6, DBili 2.5, IBili 2.1, AST 258, ALT 103, AlkPhos 2740. (Niyah Whiteside) PFSH Past Medical History Coronary artery disease Congestive heart failure with reported EF of 30% Diabetes mellitus Past Surgical History Ventral hernia repair with mesh (Niyah Whiteside) Coded Allergies: No Known Allergies (Verified Allergy, Unknown, 02/04/06) Family History Patient stated that his father at the age of 50 due to [place]. Social History Denying tobacco or alcohol use. Patient lives by himself. He states that he has 4 children who live in [place]. (Niyah Whiteside) Review of Systems Constitutional: COMPLAINS OF: Weight loss, Change in appetite, DENIES: Fever, Chills, Night Sweats Respiratory: DENIES: Cough, Wheezing, Shortness of breath Cardiovascular: DENIES: Chest pain, Palpitations, Lower Extremity Edema Gastrointestinal: COMPLAINS OF: Abdominal pain, Constipation, DENIES: Black stools, Bloody stools, Diarrhea, Nausea, Vomiting, Heartburn, Hematemesis Genitourinary: DENIES: Hematuria Musculoskeletal: DENIES: Neck pain Integumentary: DENIES: Rash Neurologic: DENIES: Headache Psychiatric: DENIES: Anxiety, Confusion (Niyah Whiteside) GI Exam Vitals I&O Vital Signs Date Time Temp Pulse Resp B/P Pulse Ox O2 Delivery O2 Flow Rate FiO2 04/10/17 12:00 104 04/10/17 12:00 97.9 104 28 96/52 95 04/10/17 10:00 103 04/10/17 08:58 94 Nasal Cannula 3.00 04/10/17 08:00 104 04/10/17 08:00 98.1 104 22 84/50 95 04/10/17 04:00 98.0 109 32 85/48 99 04/10/17 03:25 99 Non-Rebreather 10.00 100 04/10/17 03:20 96 Nasal Cannula 3.00 04/10/17 02:00 98.7 133 26 74/43 100 04/10/17 01:20 91 04/10/17 01:00 125 20 99 04/09/17 23:23 124 04/09/17 22:46 98 15.00 04/09/17 22:40 98.3 155 26 113/52 76 04/09/17 20:00 96.9 118 20 114/56 92 04/09/17 15:35 96.3 97 20 118/58 95 I/O 04/09/17 04/09/17 04/09/17 04/10/17 04/10/17 04/10/17 07:00 15:00 23:00 07:00 15:00 23:00 Intake Total 1160 ml 2280 ml Output Total 200 ml 1250 ml Balance 960 ml 1030 ml Intake Oral 360 ml 80 ml IV Total 800 ml 2200 ml Output Urine Total 200 ml 1250 ml # Voids 1 # Bowel Movements 0 Imaging Last Impressions Chest X-Ray 04/09/17 1040 Signed Impressions: Service Date/Time: Sunday, April 09, 2017 10:46 - CONCLUSION: 1. No active disease. Pankaj Mena MD Liver Ultrasound 04/09/17 0000 Signed Impressions: Service Date/Time: Sunday, April 09, 2017 14:35 - CONCLUSION: 1. Cholelithiasis. 2. Echogenic liver compatible with fatty infiltration or hepatocellular disease. Alexandru Souza MD Laboratory Test 04/09/17 04/10/17 04/10/17 04/10/17 18:37 00:05 03:00 10:12 Carcinoembryonic Antigen 4.6 NG/ML CA 19-9 Antigen 24.3 U/ML Lactic Acid Level 2.6 mmol/L Nasal Screen MRSA (PCR) MRSA NOT DETECTED White Blood Count 9.5 TH/MM3 Red Blood Count 3.66 MIL/MM3 Hemoglobin 10.4 GM/DL Hematocrit 29.5 % Mean Corpuscular Volume 80.6 FL Mean Corpuscular Hemoglobin 28.5 PG Mean Corpuscular Hemoglobin 35.3 % Concent Red Cell Distribution Width 15.5 % Platelet Count 113 TH/MM3 Mean Platelet Volume 7.5 FL Sodium Level 133 MEQ/L Potassium Level 4.8 MEQ/L Chloride Level 100 MEQ/L Carbon Dioxide Level 19.4 MEQ/L Anion Gap 14 MEQ/L Blood Urea Nitrogen 33 MG/DL Creatinine 2.16 MG/DL Estimat Glomerular Filtration 30 ML/MIN Rate Random Glucose 277 MG/DL Calcium Level 7.7 MG/DL Test 04/10/17 11:20 Lactic Acid Level 3.5 mmol/L Total Bilirubin 4.6 MG/DL Direct Bilirubin 2.5 MG/DL Indirect Bilirubin 2.1 MG/DL Aspartate Amino Transf 258 U/L (AST/SGOT) Alanine Aminotransferase 103 U/L (ALT/SGPT) Alkaline Phosphatase 2740 U/L Total Creatine Kinase 898 U/L Creatine Kinase MB 1.4 NG/ML Creatine Kinase MB % 0.2 % Total Protein 5.1 GM/DL Albumin 2.1 GM/DL Tumor Marker Alpha Fetoprotein 0.8 NG/ML Date/Time Procedure Status Source Growth 04/10/17 00:15 Aerobic Blood Culture Received Blood Peripheral Pending 04/10/17 00:15 Anaerobic Blood Culture Received Blood Peripheral Pending Physical Examination GENERAL: Thin elderly male in NAD HEENT: Pupils round and reactive to light; normocephalic; atraumatic; no jaundice. Throat is clear. NECK: Neck is supple, nontender, central line in right side of the neck CHEST: CTA CARDIAC: Tachy ABDOMEN: +BS, soft, nondistended, nontender EXTREMITIES: No clubbing, cyanosis, or edema. SKIN: Normal; no rash; no jaundice. BRIQUETTE MOLDER: No focal deficits; alert and oriented times three. (Niyah Whiteside) Assessment and Plan Plan ASSESSMENT: - Elevated LFTs. Pt was admitted with generalized weakness, 40 pound weight loss over 2 weeks, anorexia, abdominal pain and constipation. He last had a BM 3 days ago which was reportedly normal. Pt denies any nausea/vomiting, diarrhea, fevers or chills. His LFTs were elevated especially his AlkPhos was 3613. Transaminases were slightly elevated with AST 99, ALT 15, and Tbili was 1.5. GGT was 53. Liver US (04/09) --> noted cholelithiasis and echogenic liver compatible with fatty infiltration or hepatocellular disease. PSA was ordered and is pending. CEA was 4,6, CA 19- 9 was 24.3, and AFP was 0.8. His Lactic acid was elevated at admission to 2.6 and repeat increased to 3.5 today. He was transferred to [facility] during the night last night with sustained tachycardia into the 130s with increased O2 requirements, and hypotension requiring vasopressor support. Repeat LFTs today noted Tbili 4.6, DBili 2.5, IBili 2.1, AST 258, ALT 103, AlkPhos 2740. The increase in the transaminases and Bilirubin may be secondary to a hypotensive insult. The pt may have some underlying liver disease, etiology of which is unclear. Pt denies any alcohol use or hx of viral hepatitis. Denies any new medications or medication changes. - Weight loss and poor appetite, pt reportedly has lost 40lbs in [address] Chest/Abd/pelvis is ordered. PSA is pending. CEA/AFP/Ca 19-9 were WNL. - Abdominal pain and constipation. CT evaluation is pending. - Possible sepsis/lactic acidosis/hypotension/tachycardia, etiology unclear. Pt is on Zosyn and Levaquin. No fever or elevated WBC count. Management per CCM. - Diabetes mellitus, CHF with reported EF 30%. Management per attending. PLAN: - Await CT Abd/pelvis/Chest - BP management per CCM - Monitor LFTs closely - Check LETI, ASMA, AMA, Hepatitis panel, Iron studies, Ferritin, Ceruloplasmin, [id number] - Supportive care - Further recommendations as the case develops - The pt was seen and examined by myself and Dr. Heredia, this note was written on his behalf. (Niyah Whiteside) Physician Comments Seen and examined with Niyah plan as above. Will follow up with you pending CT findings (Thea Heredia MD) Niyah Whiteside April 10, 2017 15:06 Thea Heredia MD April 11, 2017 04:53
--- NOTE | 2017-04-10 15:16 | RADRPT ---
EXAM DATE/TIME: 04/10/2017 14:47 [facility] COMPARISON: CHEST SINGLE AP, April 09, 2017, 10:46. INDICATIONS : Central line placement. MEDICAL HISTORY : Hypertension. Diabetes mellitus type II. SURGICAL HISTORY : None. ENCOUNTER: Initial ACUITY: 1 day PAIN SCORE: 0/10 LOCATION: Bilateral chest FINDINGS: Patchy air space disease is seen in the left lower lobe. Central venous catheter is entering from the right with the tip extending into the jugular vein. The right lung is clear. Heart is minimally enlarged. Pulmonary vascularity is normal. CONCLUSION: 1. Increasing patchy air space disease in the left lower lobe. 2. Central line is extending into the right jugular. Kartik Santiago MD FACR on April 10, 2017 at 15:11 Board Certified Radiologist. This report was verified electronically.
--- NOTE | 2017-04-10 15:57 | EKG ---
Date Performed: 04/09/2017 Time Performed: 10:49:44 PTAGE: 81 years EKG: Sinus rhythm MARKED LEFT AXIS DEVIATION LEFT BUNDLE BRANCH BLOCK ABNORMAL ECG Since PREVIOUS TRACING 01/27/2006, heart rate is faster, otherwise no significant change. PREV IOUS TRACIN01/27/2006 10.49 DOCTOR: Earl You Interpretating Date/Time 04/10/2017 15:56:57
--- NOTE | 2017-04-10 16:01 | EKG ---
Date Performed: 04/09/2017 Time Performed: 22:58:18 PTAGE: 81 years EKG: Probable sinus tachycardia. Left axis deviation Left bundle branch block Abnormal ECG Since PREVIOUS TRACING 04/09/2017, heart rate has increased from 99 to 141, this may be signs of tachycardia although some other supraventricular tachycardia cannot be excluded. Clinical correlat ion is recommended. PREVIOUS TRACIN04/09/2017 10.49 DOCTOR: Earl You Interpretating Date/Time 04/10/2017 15:59:37
[2017-04-10] MEDS ORDERED: TERBUTALINE INJ 1 MG/ML AMP SQ PRN (16:30)
[2017-04-10] MEDS: ENOXAPARIN SODIUM 40 MG/0.4 ML SYRINGE SQ SCH (16:45)
[2017-04-10 17:12] LABS: TRANSFERRIN IRON PROFILE 144 MG/DL (200-360)
[2017-04-10 17:15] LABS: FERRITIN 1919 NG/ML (26-388)
--- NOTE | 2017-04-10 17:15 | RADRPT ---
EXAM DATE/TIME: 04/10/2017 15:34 [facility] COMPARISON: CHEST SINGLE AP, April 10, 2017, 14:47. INDICATIONS : Evaluate for central line placement. MEDICAL HISTORY : Hypertension. Diabetes mellitus type II. SURGICAL HISTORY : None. ENCOUNTER: Subsequent ACUITY: 1 day PAIN SCORE: 0/10 LOCATION: Bilateral chest FINDINGS: Central line remains in the right jugular vein. Mild compensated cardiomegaly persists. There is no pneumothorax. CONCLUSION: Central line remains in the jugular vein from a right subclavian approach. Kartik Santiago MD FACR on April 10, 2017 at 16:35 Board Certified Radiologist. This report was verified electronically.
--- NOTE | 2017-04-10 17:20 | RADRPT ---
EXAM DATE/TIME: 04/10/2017 16:10 [facility] COMPARISON: CHEST SINGLE AP, April 10, 2017, 15:34. INDICATIONS : Right central line placement. MEDICAL HISTORY : Hypercholesterolemia. Hypertension SURGICAL HISTORY : prostate surgery ENCOUNTER: Subsequent ACUITY: 1 day PAIN SCORE: 5/10 LOCATION: Right upper chest FINDINGS: Central line is now in the right atrium. There is no pneumothorax. There is better aeration in the left base. Heart is minimally enlarged. CONCLUSION: Central line in good position. Kartik Santiago MD FACR on April 10, 2017 at 17:03 Board Certified Radiologist. This report was verified electronically.
[2017-04-10] MEDS: PHENYLEPHRINE INJ 40 MG in DEXTROSE 5% IN WATE 500 ML INJ 496 ML IV SCH ×4 (17:40→23:33)
--- NOTE | 2017-04-10 19:17 | RADRPT ---
EXAM DATE/TIME: 04/10/2017 18:39 [facility] COMPARISON: No previous studies available for comparison. INDICATIONS : Weight loss; 40 pounds in two weeks. ORAL CONTRAST: No oral contrast ingested. RADIATION DOSE: 11.73 CTDIvol (mGy) ; Combined studies - Thorax/Abdomen/Pelvis MEDICAL HISTORY : Cardiovascular disease. Congestive heart failure. SURGICAL HISTORY : hernia repair. ENCOUNTER: Initial ACUITY: 1 day PAIN SCALE: 4/10 LOCATION: Bilateral abdomen. TECHNIQUE: Volumetric scanning of the abdomen and pelvis was performed. Using automated exposure control and ad justment of the mA and/or kV according to patient size, radiation dose was kept as low as reasonably achievable to obtain optimal diagnostic quality images. FINDINGS: Minimal bibasilar consolidative changes are evident. The liver is free of focal defects. Multiple g allstones are seen in a prominent distended gallbladder. The pancreas, spleen and adrenal glands are unremarkable. Large 4 cm cyst is seen in the right kidne y. The left kidney is unremarkable. There is no ascites or adenopathy appreciated. Bladder is deco mpressed by a [place]. Abdominal wall is intact. Review of bone windows reveals degenerative changes. The bones appear to be osteopenic with scattered lucencies evident. This is suspicious for a neoplastic process. CONCLUSION: 1. 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 The right iliac crest could easily be biopsied perc utaneously for diagnosis. 2. Prominent gallbladder with gallstones. 3. Site of primary is not identified. 4. There is no evidence for metastatic disease to the liver. Kartik Santiago MD FACR on April 10, 2017 at 19:10 Board Certified Radiologist. This report was verified electronically.
--- NOTE | 2017-04-10 19:22 | RADRPT ---
EXAM DATE/TIME: 04/10/2017 18:39 [facility] COMPARISON: CT ABDOMEN & PELVIS W/O CONTRAST, April 10, 2017, 18:39. INDICATIONS : Weight loss; 40 pounds in two weeks. RADIATION DOSE: 11.73 CTDIvol (mGy) ; Combined studies - Thorax/Abdomen/Pelvis MEDICAL HISTORY : Cardiovascular disease. SURGICAL HISTORY : Hernia repair. ENCOUNTER: Initial ACUITY: 1 day PAIN SCALE: 5/10 LOCATION: Bilateral chest TECHNIQUE: Volumetric scanning of the chest was performed. Using automated exposure control and adjustment of t mA and/or kV according to patient size, radiation dose was kept as low as reasonably achievable to obtain optimal diagnostic quality images. FINDINGS & CONCLUSION: Minimal bibasilar parenchymal changes are evident. There is no evidence for a primary carcinoma of t lung. There is mild dilatation of the ascending aorta. Moderate vascular calcifications are noted. There is no pericardial effusion. Review of bone windows reveals what looks like widespread sclerotic metastatic disease. This could b e biopsied percutaneously for diagnosis. Prostate would be the most likely diagnosis to cause this. Kartik Santiago MD FACR on April 10, 2017 at 19:12 Board Certified Radiologist. This report was verified electronically.
[2017-04-11] VITALS (16 sets, daily range): BP systolic 95–131; BP diastolic 53–70; PULSE 91–107; RESP 14–28; TEMP 97.6–99.4; O2SAT 89–98
[2017-04-11] MEDS: PIPERACIL-TAZO 3.375 GM PREMIX 50 ML IV SCH ×5 (00:01→22:52)
[2017-04-11] MEDS ORDERED: VASOPRESSIN INJ 40 UNITS in DEXTROSE 5% IN WATER 100ML INJ 98 ML IV SCH ×2 (01:20)
[2017-04-11] MEDS: HYDROCORTISONE SOD SUCCINATE 100 MG VIAL IV PUSH SCH ×4 (01:34→22:51)
[2017-04-11] MEDS: VASOPRESSIN INJ 40 UNITS in DEXTROSE 5% IN WATER 100ML INJ 98 ML IV SCH ×4 (01:50→23:08)
[2017-04-11] MEDS: PHENYLEPHRINE INJ 40 MG in DEXTROSE 5% IN WATE 500 ML INJ 496 ML IV SCH ×4 (01:50→13:49)
[2017-04-11 03:16] LABS: AUTOMATED NEUTROPHIL # 6.5 TH/MM3 (1.8-7.7); BASOPHIL % 0.2 % (0.0-2.0); EOSINOPHIL % 0.1 % (0.0-4.0); HEMATOCRIT 26.2 % (39.0-51.0); LYMPH % 7.6 % (9.0-44.0); LYMPHOCYTE # 0.6 TH/MM3 (1.0-4.8); MEAN CELL VOLUME 81.5 FL (80.0-100.0); MEAN CORPUSCULAR HGB CONC 34.4 % (32.0-36.0); MONO % 3.7 % (0.0-8.0); NEUT % 88.4 % (16.0-70.0); PLATELET COUNT 77 TH/MM3 (150-450); RED BLOOD COUNT 3.22 MIL/MM3 (4.50-5.90); RED CELL DISTRIBUTION WIDTH 15.7 % (11.6-17.2); WHITE BLOOD COUNT 7.4 TH/MM3 (4.0-11.0)
[2017-04-11 03:20] LABS: HEMO FLAGS AUTO DIFF
[2017-04-11 03:39] LABS: ALT (GPT) 100 U/L (12-78); ANION GAP 12 MEQ/L (5-15); AST (GOT) 189 U/L (15-37); BICARBONATE 20.3 MEQ/L (21.0-32.0); BLOOD UREA NITROGEN 19 MG/DL (7-18); CHLORIDE 101 MEQ/L (98-107); GLOMERULAR FILTRATION RATE 41 ML/MIN (>89); MAGNESIUM 1.8 MG/DL (1.5-2.5); POTASSIUM 3.8 MEQ/L (3.5-5.1); SODIUM (NA) 133 MEQ/L (136-145)
[2017-04-11 03:47] LABS: ALKALINE PHOSPHATASE 2132 U/L (45-117); CREATINE KINASE 792 U/L (39-308); TOTAL BILIRUBIN ADULT 5.9 MG/DL (0.2-1.0)
[2017-04-11 04:00] LABS: CKMB 1.2 NG/ML (0.5-3.6)
[2017-04-11] MEDS: CHLORHEXIDINE GLUCONATE 2 % 1 PACK (2 CLOTHS)(taper/protocol) TOPICAL SCH (04:00)
[2017-04-11] MEDS: INSULIN NovoLIN REGULAR SUPPLEMENTAL SCALE SQ SCH ×4 (05:11→22:53)
[2017-04-11] MEDS: SODIUM CHLOR 0.9% 1000 ML INJ 1,000 ML IV SCH ×2 (05:17→23:10)
[2017-04-11 07:20] LABS: BANDS 27 % (0-6); NEUTROPHIL # MANUAL DIFF 6.5 TH/MM3 (1.8-7.7); POLYS (SEG NEUTROPHILS) 61 % (16-70); WBC DIFF SAMPLE 100
[2017-04-11 07:24] LABS: BURR CELLS 1+ (NORMAL); PLATELET ESTIMATE SMEAR LOW (NORMAL); PLATELET MORPHOLOGY NORMAL (NORMAL); SCAN/DIFF AUTO DIFF CONFIRMED
--- NOTE | 2017-04-11 07:47 | HHI.CCPN ---
Subjective Remarks/Hospital Course Frail, elderly man admitted earlier today with dehydration and general fatigue, recent weight loss. Has developed sustained tachycardia to 130s with increased O2 requirements. Now with worsening hypotension requiring vasopressor support. 04/10 Patient is on Levophed 23 mics. Afebrile. Denies any CP/SOB, N/V abdominal pain 04/11 Patient is on Neosyn and Vasopressin. On 5L oxygen. CT abd/pelvis showed bony mets unclear primary. Afebrile. Objective Vital Signs Date Time Temp Pulse Resp B/P Pulse Ox O2 Delivery O2 Flow Rate FiO2 04/11/17 02:00 107 04/11/17 00:00 99.4 22 95/53 95 04/10/17 20:59 Nasal Cannula 5.00 04/10/17 03:25 100 Intake and Output 04/10/17 04/10/17 04/11/17 08:00 16:00 00:00 Intake Total 1280 ml 3133 ml 1373 ml Output Total 750 ml 3050 ml 1700 ml Balance 530 ml 83 ml -327 ml Result Diagram: 04/11/17 0254 04/11/17 0254 Other Results Laboratory Tests Test 04/10/17 04/10/17 04/10/17 04/11/17 10:12 11:20 19:40 02:54 White Blood Count 9.5 TH/MM3 7.4 TH/MM3 Red Blood Count 3.66 MIL/MM3 3.22 MIL/MM3 Hemoglobin 10.4 GM/DL 9.0 GM/DL Hematocrit 29.5 % 26.2 % Mean Corpuscular Volume 80.6 FL 81.5 FL Mean Corpuscular Hemoglobin 28.5 PG 28.0 PG Mean Corpuscular Hemoglobin 35.3 % 34.4 % Concent Red Cell Distribution Width 15.5 % 15.7 % Platelet Count 113 TH/MM3 77 TH/MM3 Mean Platelet Volume 7.5 FL 7.8 FL Sodium Level 133 MEQ/L 133 MEQ/L Potassium Level 4.8 MEQ/L 3.8 MEQ/L Chloride Level 100 MEQ/L 101 MEQ/L Carbon Dioxide Level 19.4 MEQ/L 20.3 MEQ/L Anion Gap 14 MEQ/L 12 MEQ/L Blood Urea Nitrogen 33 MG/DL 19 MG/DL Creatinine 2.16 MG/DL 1.63 MG/DL Estimat Glomerular Filtration 30 ML/MIN 41 ML/MIN Rate Random Glucose 277 MG/DL 199 MG/DL Serum Osmolality 293 MOSM/KG Calcium Level 7.7 MG/DL 7.8 MG/DL Thyroid Stimulating Hormone 0.326 uIU/ML 3rd Gen Lactic Acid Level 3.5 mmol/L 1.5 mmol/L Iron Level 31 MCG/DL Total Iron Binding Capacity 202 MCG/DL Percent Iron Saturation 15.4 % Ferritin 1919 NG/ML Total Bilirubin 4.6 MG/DL 5.9 MG/DL Direct Bilirubin 2.5 MG/DL Indirect Bilirubin 2.1 MG/DL Aspartate Amino Transf 258 U/L 189 U/L (AST/SGOT) Alanine Aminotransferase 103 U/L 100 U/L (ALT/SGPT) Alkaline Phosphatase 2740 U/L 2132 U/L Total Creatine Kinase 898 U/L 792 U/L Creatine Kinase MB 1.4 NG/ML 1.2 NG/ML Creatine Kinase MB % 0.2 % 0.2 % Total Protein 5.1 GM/DL 4.9 GM/DL Albumin 2.1 GM/DL 2.0 GM/DL Tumor Marker Alpha Fetoprotein 0.8 NG/ML Neutrophils (%) (Auto) 88.4 % Lymphocytes (%) (Auto) 7.6 % Monocytes (%) (Auto) 3.7 % Eosinophils (%) (Auto) 0.1 % Basophils (%) (Auto) 0.2 % Neutrophils # (Auto) 6.5 TH/MM3 Lymphocytes # (Auto) 0.6 TH/MM3 Monocytes # (Auto) 0.3 TH/MM3 Eosinophils # (Auto) 0.0 TH/MM3 Basophils # (Auto) 0.0 TH/MM3 CBC Comment AUTO DIFF Differential Total Cells 100 Counted Neutrophils % (Manual) 61 % Band Neutrophils % 27 % Lymphocytes % 10 % Monocytes % 2 % Neutrophils # (Manual) 6.5 TH/MM3 Differential Comment AUTO DIFF CONFIRMED Platelet Estimate LOW Platelet Morphology Comment NORMAL [place] Cells 1+ Phosphorus Level 2.1 MG/DL Magnesium Level 1.8 MG/DL Troponin I 0.08 NG/ML Imaging Last Impressions Chest X-Ray 04/10/17 0000 Signed Impressions: Service Date/Time: Monday, April 10, 2017 16:10 - CONCLUSION: Central line in good position. Kartik Santiago MD FACR Chest CT 04/10/17 0000 Signed Impressions: Service Date/Time: Monday, April 10, 2017 18:39 - CONCLUSION: Minimal bibasilar parenchymal changes are evident. There is no evidence for a primary carcinoma of the lung. There is mild dilatation of the ascending aorta. Moderate vascular calcifications are noted. There is no pericardial effusion. Review of bone windows reveals what looks like widespread sclerotic metastatic disease. This could be biopsied percutaneously for diagnosis. Prostate would be the most likely diagnosis to cause this. Kartik Santiago MD FACR Abdomen/Pelvis CT 04/10/17 0000 Signed Impressions: Service Date/Time: Monday, April 10, 2017 18:39 - CONCLUSION: 1. 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 The right iliac crest could easily be biopsied percutaneously for diagnosis. 2. Prominent gallbladder with gallstones. 3. Site of primary is not identified. 4. There is no evidence for metastatic disease to the liver. Kartik Santiago MD FACR Liver Ultrasound 04/09/17 0000 Signed Impressions: Service Date/Time: Sunday, April 09, 2017 14:35 - CONCLUSION: 1. Cholelithiasis. 2. Echogenic liver compatible with fatty infiltration or hepatocellular disease. Alexandru Souza MD Objective Remarks GENERAL: Patient is 81 yo lying in bed in NAD SKIN: Warm and dry. HEAD: Normocephalic. EYES: No scleral icterus. No injection or drainage. NECK: Supple, trachea midline. No JVD or lymphadenopathy. CARDIOVASCULAR: Regular rate and rhythm without murmurs, gallops, or rubs. RESPIRATORY: Breath sounds equal bilaterally. No accessory muscle use. GASTROINTESTINAL: Abdomen soft, non-tender, nondistended. MUSCULOSKELETAL: No cyanosis, or edema. BACK: Nontender without obvious deformity. No CVA tenderness. Neuro: Awake and alert. A/P Assessment and Plan 1)Resp Insuff 2)Sepsis. 3)NOHEMI.. 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 Plan: Neuro: Awake and alert Pulm: Continue with oxygen keep sat >92% Bronchodilators CV: Wean off pressors ( On Neosyn, Vasopressin) keep MAP>65mmHg On stress dose steroids- HC 100mg IV Q8 NS@75ml/hr, CVP monitoring. Lactic acid 1.5 last night. For 2D echo to eval V function. Continue with ASA 81mg daily, hold Pravachol for elevated LFT : Monitor renal function, I/O's, electrolytes replacement as needed. Continue with IVF- monitor CK's. Renal function is improving with Cr: 1.63 from 2.16 GI: On PO diet, on Protonix 40mg daily for GI prophylaxis Monitor LFT;s, US Liver: Cholelithiasis. Echogenic liver compatible with fatty infiltration or hepatocellular disease. CT abd/pelvis: Metastatic bone disease unclear primary ? prostate. Follow up on PSA level. GI is following ID: Continue with abx ( Zosyn, Levaquin)monitor for signs of infections ( fever , WBC) ID eval. Follow up on BC- NGTD CXR: No acute disease, UA unremarkable. Heme/Onc Monitor CBC, coags/Fibrinogen Onc eval. Might need biopsy of right iliac crest. Endo: SSI with accuchecks GI prophylaxis- Protonix 40mg daily DVT prophylaxis- Hold Lovenox for thrombocytopenia Lines: Right IJ CVP placed 04/10 Patient is critically ill with sepsis, ARF, lactic acidemia CCT 30 mins Cherelle Palmer MD April 11, 2017 07:47
[2017-04-11] MEDS: ASPIRIN EC 81 MG TABEC PO SCH (09:00)
[2017-04-11] MEDS: MULTIVITAMINS/MINERALS THERAPEUTIC TAB PO SCH (09:04)
[2017-04-11] MEDS: DOCUSATE SODIUM 50 MG/SENNA 8.6 MG TAB PO SCH ×2 (09:04→22:51)
[2017-04-11] MEDS: SODIUM CHLORIDE 0.9% FLUSH 10 ML FLUSH IV FLUSH SCH ×2 (09:04→23:09)
[2017-04-11 09:46] LABS: INTERNATIONAL NORMALIZED RATIO 1.5 RATIO; PROTHROMBIN TIME - PATIENT 17.1 SEC (9.8-11.6)
[2017-04-11] MEDS: PANTOPRAZOLE SODIUM 40 MG VIAL IV PUSH SCH (12:26)
[2017-04-11] MEDS: LEVOFLOXACIN 750 MG PREMIX INJ 150 ML IV SCH (12:26)
--- NOTE | 2017-04-11 12:45 | EC ---
Study Study Date:04/11/2017 STUDY CONCLUSIONS SUMMARY - Procedure narrative: Transthoracic echocardiography. Image quality was poor. Scanning was performed from the parasternal, apical, and subcostal acoustic windows. - Left ventricle: The cavity size was normal. Wall thickness was normal. Systolic function was difficult to assess, possibly mildly reduced. The estimated ejection fraction was 45%. - Ventricular septum: Septal motion showed dyssynergy probably due to underlying left bundle branch block. - Aortic valve: Trileaflet; mildly thickened, mildly calcified leaflets. - Mitral valve: Mildly calcified annulus. Trace to mild regurgitation. - Tricuspid valve: Trace to mild regurgitation. If LV function is below 40, please consider prescribing an ACEI or ARB or document rationale for non-use. PROCEDURE DATA STUDY STATUS: Elective. Procedure: Transthoracic echocardiography. Image quality was poor. Scanning was performed from the parasternal, apical, and subcostal acoustic windows. Study completion: The patient tolerated the procedure well. Transthoracic echocardiography. M-mode, complete 2D, complete spectral Doppler, and color Doppler. Patient status: Inpatient. CARDIAC ANATOMY LEFT VENTRICLE: The cavity size was normal. Wall thickness was normal. Systolic function was difficult to assess, possibly mildly reduced. The estimated ejection fraction was 45%. Wall motion was normal; there were no regional wall motion abnormalities. AORTIC VALVE: Trileaflet; mildly thickened, mildly calcified leaflets. Doppler: Transvalvular velocity was within the normal range. There was no stenosis. No regurgitation. AORTA: Aortic root: The aortic root was normal in size. MITRAL VALVE: Mildly calcified annulus. Doppler: Transvalvular velocity was within the normal range. There was no evidence for stenosis. Trace to mild regurgitation. Peak gradient: 2mm Hg (D). LEFT ATRIUM: The atrium was normal in size. RIGHT VENTRICLE: The cavity size was normal. Wall thickness was normal. VENTRICULAR SEPTUM: Septal motion showed dyssynergy probably due to underlying left bundle branch block. PULMONIC VALVE: Doppler: Transvalvular velocity was within the normal range. There was no evidence for stenosis. No regurgitation. TRICUSPID VALVE: Structurally normal valve. Doppler: Transvalvular velocity was within the normal range. Trace to mild regurgitation. PULMONARY ARTERY: The main pulmonary artery was normal-sized. Systolic pressure was within the normal range. RIGHT ATRIUM: The atrium was normal in size. PERICARDIUM: There was no pericardial effusion. SYSTEMIC VEINS: Inferior vena cava: The vessel was normal in size. BASIC MEASUREMENTS ADULT Normal Left ventricle LV internal dimension, ED, chordal level, 48.5 mm 43-52 PLAX LV internal dimension, ES, chordal level, *40.1 mm 23-38 PLAX Fractional shortening, chordal level, PLAX *17 % >29 LV posterior wall thickness, ED 6.67 mm IVS/LVPW ratio, ED *1.43 <1.3 Ventricular septum Septal thickness, ED 9.51 mm Aortic valve Leaflet separation 18 mm 15-26 Left atrium Anterior-posterior dimension 32 mm Right ventricle RV internal dimension, ED, PLAX 24.4 mm 19-38 BASIC MEASUREMENTS ADULT Normal Aortic valve Leaflet separation 18 mm 15-26 Aorta Root diameter, ED 26 mm 20-37 DOPPLER MEASUREMENTS ADULT Normal Mitral valve Peak E-wave velocity 78.5 cm/s Peak A-wave velocity 48.4 cm/s Peak gradient, D 2 mm Hg Peak E/A ratio 1.6 Tricuspid valve Regurgitant peak velocity 176 cm/s Peak RV-RA gradient, S 12 mm Hg Maximal regurgitant velocity 176 cm/s LEGEND: Mean values are shown as u=mean value. Asterisk (*) aguilar values outside specified normal range. Prepared and signed by Tl Pa [id number]
--- NOTE | 2017-04-11 14:50 | HHI.GIFU ---
Subjective Remarks asymptomatic Objective Vitals I&O Vital Signs Date Time Temp Pulse Resp B/P Pulse Ox O2 Delivery O2 Flow Rate FiO2 04/11/17 14:00 95 04/11/17 12:00 91 04/11/17 12:00 97.8 91 25 114/70 98 04/11/17 10:00 96 04/11/17 09:00 92 04/11/17 08:00 98.1 94 25 131/56 95 04/11/17 08:00 91 04/11/17 06:00 102 04/11/17 04:00 107 04/11/17 04:00 98.3 98 14 118/ 96 04/11/17 02:00 107 04/11/17 00:00 99.4 106 22 95/53 95 04/11/17 00:00 106 04/10/17 22:00 108 04/10/17 20:59 98 Nasal Cannula 5.00 04/10/17 20:00 99.3 106 24 98/50 96 04/10/17 20:00 106 04/10/17 18:00 114 04/10/17 16:00 98.3 126 35 121/56 98 04/10/17 16:00 126 I/O 04/10/17 04/10/17 04/10/17 04/11/17 04/11/17 04/11/17 07:00 15:00 23:00 07:00 15:00 23:00 Intake Total 2280 ml 3133 ml 1373 ml 1446 ml 1967 ml Output Total 1250 ml 3050 ml 1700 ml 800 ml 700 ml Balance 1030 ml 83 ml -327 ml 646 ml 1267 ml Intake Oral 80 ml 960 ml 200 ml 240 ml IV Total 2200 ml 2173 ml 1373 ml 1246 ml 1727 ml Output Urine Total 1250 ml 3050 ml 1700 ml 800 ml 700 ml # Bowel Movements 0 0 0 Laboratory Laboratory Tests Test 04/10/17 04/11/17 04/11/17 19:40 02:54 08:30 Lactic Acid Level 1.5 White Blood Count 7.4 Red Blood Count 3.22 Hemoglobin 9.0 Hematocrit 26.2 Mean Corpuscular Volume 81.5 Mean Corpuscular Hemoglobin 28.0 Mean Corpuscular Hemoglobin 34.4 Concent Red Cell Distribution Width 15.7 Platelet Count 77 Mean Platelet Volume 7.8 Neutrophils (%) (Auto) 88.4 Lymphocytes (%) (Auto) 7.6 Monocytes (%) (Auto) 3.7 Eosinophils (%) (Auto) 0.1 Basophils (%) (Auto) 0.2 Neutrophils # (Auto) 6.5 Lymphocytes # (Auto) 0.6 Monocytes # (Auto) 0.3 Eosinophils # (Auto) 0.0 Basophils # (Auto) 0.0 CBC Comment AUTO DIFF Differential Total Cells 100 Counted Neutrophils % (Manual) 61 Band Neutrophils % 27 Lymphocytes % 10 Monocytes % 2 Neutrophils # (Manual) 6.5 Differential Comment AUTO DIFF CONFIRMED Platelet Estimate LOW Platelet Morphology Comment NORMAL [place] Cells 1+ Sodium Level 133 Potassium Level 3.8 Chloride Level 101 Carbon Dioxide Level 20.3 Anion Gap 12 Blood Urea Nitrogen 19 Creatinine 1.63 Estimat Glomerular Filtration 41 Rate Random Glucose 199 Calcium Level 7.8 Phosphorus Level 2.1 Magnesium Level 1.8 Total Bilirubin 5.9 Aspartate Amino Transf 189 (AST/SGOT) Alanine Aminotransferase 100 (ALT/SGPT) Alkaline Phosphatase 2132 Total Creatine Kinase 792 Creatine Kinase MB 1.2 Creatine Kinase MB % 0.2 Troponin I 0.08 Total Protein 4.9 Albumin 2.0 Prothrombin Time 17.1 Prothromb Time International 1.5 Ratio Fibrinogen 623 Date/Time Procedure Status Source Growth 04/10/17 00:15 Aerobic Blood Culture - Preliminary Resulted Blood Peripheral NO GROWTH IN 1 DAY 04/10/17 00:15 Anaerobic Blood Culture - Preliminary Resulted Blood Peripheral NO GROWTH IN 1 DAY Physical Exam HEENT: Cachectic CHEST: Chest is clear to auscultation and percussion. CARDIAC: Regular rate and rhythm with no murmur gallop or rubs. ABDOMEN: Soft, nondistended, nontender; no hepatosplenomegaly; bowel sounds are present in all four quadrants. EXTREMITIES: No clubbing, cyanosis, or edema. Assessment and Plan Plan ASSESSMENT: - Bone mets and unknown primary, asymptomatic. - Elevated LFTs. Pt was admitted with generalized weakness, 40 pound weight loss over 2 weeks, anorexia, abdominal pain and constipation. He last had a BM 3 days ago which was reportedly normal. Pt denies any nausea/vomiting, diarrhea, fevers or chills. His LFTs were elevated especially his AlkPhos was 3613. Transaminases were slightly elevated with AST 99, ALT 15, and Tbili was 1.5. GGT was 53. Liver US (04/09) --> noted cholelithiasis and echogenic liver compatible with fatty infiltration or hepatocellular disease. PSA was ordered and is pending. CEA was 4,6, CA 19- 9 was 24.3, and AFP was 0.8. His Lactic acid was elevated at admission to 2.6 and repeat increased to 3.5 today. He was transferred to [facility] [place] during the night last night with sustained tachycardia into the 130s with increased O2 requirements, and hypotension requiring vasopressor support. Repeat LFTs today noted Tbili 4.6, DBili 2.5, IBili 2.1, AST 258, ALT 103, AlkPhos 2740. The increase in the transaminases and Bilirubin may be secondary to a hypotensive insult. The pt may have some underlying liver disease, etiology of which is unclear. Pt denies any alcohol use or hx of viral hepatitis. Denies any new medications or medication changes. - Weight loss and poor appetite, - Abdominal pain and constipation. - Possible sepsis/lactic acidosis/hypotension/tachycardia, etiology unclear. Pt is on Zosyn and Levaquin. No fever or elevated WBC count. Management per CCM. - Diabetes mellitus, CHF with reported EF 30%. Management per attending. PLAN: - Supportive care - BP management per CCM - Monitor LFTs closely - Check LETI, ASMA, AMA, Hepatitis panel, Iron studies, Ferritin, Ceruloplasmin, [id number] - Tumor markers pending - Supportive care, possible palliative care with his overall poor performance. - Further recommendations as the case develops - Will sign off for now, please notify us if needed. Thea Heredia MD April 11, 2017 14:50
--- NOTE | 2017-04-11 16:56 | PD.ID.CON ---
History of Present Illness Service ID Consult Requested By Dr Jean-Baptiste Reason for Consult sepsis bandemia Primary Care Physician Unknown Diagnoses: History of Present Illness 81-year-old male with past medical history of coronary disease and congestive heart failure with ejection fraction of 30% presented with 40 pound weight loss over 2 weeks, anorexia, and fatigue. Pt presented afebrile but with lacdic acodosis and bandemia which is now up to 27 % CT showed widespread sclerotic metastatic disease. Primary tumor has not been revealed yet Over the next few days he developed sustained tachycardia to 130s with increased O2 requirements and hypotension requiring vasopressor support. Over the last 48 hrs BP improved, down on pressors Patient stated that he was scheduled for pacemaker with Dr. Callaway on April 15. Pt denies any urinary smx at home, any bone pain He has significant bilirubinemia Review of Systems Constitutional: COMPLAINS OF: Fatigue, Weight loss Except as stated in HPI: all other systems reviewed are Neg Past Family Social History Allergies: Coded Allergies: No Known Allergies (Verified Allergy, Unknown, 02/04/06) Past Medical History Coronary artery disease Congestive heart failure with ejection fracture 30% Type 2 diabetes. Past Surgical History Denies any past surgical history. Active Ordered Medications Medications where reviewed in EMR Antibiotics Include: levaquine zosyn Family History Non-Contributory. Social History No Tobacco. No ETOH. No Illicit Drugs. Physical Exam Vital Signs Vital Signs Date Time Temp Pulse Resp B/P Pulse Ox O2 Delivery O2 Flow Rate FiO2 04/11/17 14:00 95 04/11/17 12:00 91 04/11/17 12:00 97.8 91 25 114/70 98 04/11/17 10:00 96 04/11/17 09:00 92 04/11/17 08:00 98.1 94 25 131/56 95 04/11/17 08:00 91 04/11/17 06:00 102 04/11/17 04:00 107 04/11/17 04:00 98.3 98 14 118/ 96 04/11/17 02:00 107 04/11/17 00:00 99.4 106 22 95/53 95 04/11/17 00:00 106 04/10/17 22:00 108 04/10/17 20:59 98 Nasal Cannula 5.00 04/10/17 20:00 99.3 106 24 98/50 96 04/10/17 20:00 106 04/10/17 18:00 114 Physical Exam CONSTITUTIONAL/GENERAL: This is a thin elderly chronically ill appaering patient with stigmata of rapid weight loss, in no apparent distress. TUBES/LINES/DRAINS: SKIN: + mild jaundice, rashes, or lesions.Skin temperature appropriate. Not diaphoretic. HEAD: Atraumatic. Normocephalic. EYES: Pupils equal and round and reactive. Extraocular motions intact. + scleral icterus. No injection or drainage. Fundi not examined. ENT: Hearing grossly normal. Nose without bleeding or purulent drainage. Oral mucosae dry without visible erythema, exudates, masses, or lesions. poor dentition NECK: Trachea midline. Supple, nontender. CARDIOVASCULAR: Regular rate and rhythm without murmurs, gallops, or rubs. No JVD. Peripheral pulses symmetric. RESPIRATORY/CHEST: Symmetric, unlabored respirations. Clear to auscultation. Breath sounds equal bilaterally. No wheezes, rales, or rhonchi. GASTROINTESTINAL: Abdomen soft, non-tender, nondistended. No hepato-splenomegaly , or palpable masses. No guarding. Bowel sounds present. GENITOURINARY: Without palpable bladder distension. Huerta catheter in place with clear yellow urine MUSCULOSKELETAL: Extremities without clubbing, cyanosis, or edema. No joint tenderness or effusion noted. No calf tenderness. No mottling or clubbing. LYMPHATICS: No palpable cervical or supraclavicular adenopathy. NEUROLOGICAL: Awake and alert. Motor and sensory grossly within normal limits. Follows commands. speech clear . Moves all extremities. PSYCHIATRIC: No obvious anxiety/depression. no apparent hallucinations or other psychotic thought process. Laboratory Laboratory Tests Test 04/10/17 04/11/17 04/11/17 19:40 02:54 08:30 Lactic Acid Level 1.5 White Blood Count 7.4 Red Blood Count 3.22 Hemoglobin 9.0 Hematocrit 26.2 Mean Corpuscular Volume 81.5 Mean Corpuscular Hemoglobin 28.0 Mean Corpuscular Hemoglobin 34.4 Concent Red Cell Distribution Width 15.7 Platelet Count 77 Mean Platelet Volume 7.8 Neutrophils (%) (Auto) 88.4 Lymphocytes (%) (Auto) 7.6 Monocytes (%) (Auto) 3.7 Eosinophils (%) (Auto) 0.1 Basophils (%) (Auto) 0.2 Neutrophils # (Auto) 6.5 Lymphocytes # (Auto) 0.6 Monocytes # (Auto) 0.3 Eosinophils # (Auto) 0.0 Basophils # (Auto) 0.0 CBC Comment AUTO DIFF Differential Total Cells 100 Counted Neutrophils % (Manual) 61 Band Neutrophils % 27 Lymphocytes % 10 Monocytes % 2 Neutrophils # (Manual) 6.5 Differential Comment AUTO DIFF CONFIRMED Platelet Estimate LOW Platelet Morphology Comment NORMAL Sisters Cells 1+ Sodium Level 133 Potassium Level 3.8 Chloride Level 101 Carbon Dioxide Level 20.3 Anion Gap 12 Blood Urea Nitrogen 19 Creatinine 1.63 Estimat Glomerular Filtration 41 Rate Random Glucose 199 Calcium Level 7.8 Phosphorus Level 2.1 Magnesium Level 1.8 Total Bilirubin 5.9 Aspartate Amino Transf 189 (AST/SGOT) Alanine Aminotransferase 100 (ALT/SGPT) Alkaline Phosphatase 2132 Total Creatine Kinase 792 Creatine Kinase MB 1.2 Creatine Kinase MB % 0.2 Troponin I 0.08 Total Protein 4.9 Albumin 2.0 Prothrombin Time 17.1 Prothromb Time International 1.5 Ratio Fibrinogen 623 Date/Time Procedure Status Source Growth 04/10/17 00:15 Aerobic Blood Culture - Preliminary Resulted Blood Peripheral NO GROWTH IN 1 DAY 04/10/17 00:15 Anaerobic Blood Culture - Preliminary Resulted Blood Peripheral NO GROWTH IN 1 DAY Result Diagram: 04/11/17 0254 04/11/17 0254 Imaging Last Impressions Chest X-Ray 04/10/17 0000 Signed Impressions: Service Date/Time: Monday, April 10, 2017 16:10 - CONCLUSION: Central line in good position. Kartik Santiago MD FACR Chest CT 04/10/17 0000 Signed Impressions: Service Date/Time: Monday, April 10, 2017 18:39 - CONCLUSION: Minimal bibasilar parenchymal changes are evident. There is no evidence for a primary carcinoma of the lung. There is mild dilatation of the ascending aorta. Moderate vascular calcifications are noted. There is no pericardial effusion. Review of bone windows reveals what looks like widespread sclerotic metastatic disease. This could be biopsied percutaneously for diagnosis. Prostate would be the most likely diagnosis to cause this. Kartik Santiago MD FACR Abdomen/Pelvis CT 04/10/17 0000 Signed Impressions: Service Date/Time: Monday, April 10, 2017 18:39 - CONCLUSION: 1. 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 The right iliac crest could easily be biopsied percutaneously for diagnosis. 2. Prominent gallbladder with gallstones. 3. Site of primary is not identified. 4. There is no evidence for metastatic disease to the liver. Kartik Santiago MD FACR Liver Ultrasound 04/09/17 0000 Signed Impressions: Service Date/Time: Sunday, April 09, 2017 14:35 - CONCLUSION: 1. Cholelithiasis. 2. Echogenic liver compatible with fatty infiltration or hepatocellular disease. Alexandru Souza MD Assessment and Plan Assessment and Plan Sepsis, suspected, source is not ID'd yet ? cholecysttitis": prominent gallbladr with stones - hypotension lactic acidosis, extreme bandemia, - metastatic cance rof unknow primary with bone mets accesible for diagnostic bx Extremely high AP, bilirubin and abd pain ? biliary obstruction from primary tumor - no e/o ca however on CT CT chest not sugg of PNA, clin pic not supporting dx of PNA either REC's: HIDA RUQ - cont Jeannette Puente dc, MD April 11, 2017 16:56
--- NOTE | 2017-04-11 17:14 | MB ---
cc: VLADIMIR LONG DATE OF CONSULTATION: 04/11/2017. REASON FOR CONSULTATION: Patient with metastatic bone lesions concerning for underlying carcinoma. HISTORY OF PRESENT ILLNESS: This is a 81-year-old male who has a past medical history of coronary artery disease, chronic congestive heart failure with an ejection fraction of 30%, diabetes type 2 who was brought to the emergency room with symptoms of anorexia, fatigue and 40 pounds of weight loss. On admission, his labs were normal. There was an elevation of alkaline phosphatase in the [address] imaging was obtained including a CT of the abdomen and pelvis which showed slight spread bony metastatic disease. There was no metastasis to visceral organs. The patient also had a CT of the chest and review of bone windows revealed widespread sclerotic metastatic disease. After his admission, the patient developed sustained tachycardia in the 130s and he became hypoxic. The patient was also hypotensive and has been requiring vasopressor support. He is on IV antibiotics for sepsis. There has been no growth on blood cultures thus far. He is currently on Unasyn and vasopressin and is on 5 liters of oxygen. He appears quite frail. The patient has no past medical history of any malignancy. Oncology has been consulted to make further recommendations in this patient who appears to have metastatic bone lesions. REVIEW OF SYSTEMS: A comprehensive fourteen-point review of systems was completed, which is negative except as described in the history of present illness. PAST MEDICAL HISTORY: 1. Coronary artery disease. 2. Congestive heart failure with ejection fraction of 30%. 3. Diabetes type 2. PAST SURGICAL HISTORY: Ventral hernia repair with mesh. FAMILY HISTORY: Family history is significant for coronary artery disease and [place]. His father at age 50 from a myocardial infarction. No history of malignancy. SOCIAL HISTORY: He does not smoke cigarettes or drink alcohol. He lives by himself. He has four children who live in [place]. MEDICATIONS: 1. Solu-Cortef 100 milligrams IV q.8 h. 2. Vasopressin GTT. 3. Phenylephrine GTT. 4. Sliding scale insulin. 5. Protonix 14 milligrams IV q 24 hours. 6. Aspirin 81 milligrams p.o. daily. 7. Multivitamin one tablet p.o. daily. 8. Zosyn IV q.6 h. 9. Levaquin IV q. 36 hours. 10. Senna and docusate. 11. Tylenol 650 one tablet p.o. q. 4 hours. 12. Zofran 4 milligrams IV q. 6 hours PRN. 13. Milk of magnesia 30 cc q. 12 hours PRN. 14. 10 milligrams rectally daily PRN. 15. Lactulose 30 cc p.o. PRN. ALLERGIES: NO KNOWN DRUG ALLERGIES. PHYSICAL EXAMINATION: VITAL SIGNS: Blood pressure is 131/56, pulse is a 90, temperature is 98.1, O2 sats are 95% on 5 liters of oxygen. GENERAL: A frail elderly male who appears to be acutely ill. HEAD, EYES, EARS, NOSE, THROAT: Pupils are equal, round and reactive to light. Extraocular muscles intact. No oral lesions. NECK: The neck is supple. No jugular venous distention. No bruits. No lymphadenopathy. CARDIAC: S1 and S2. Tachycardic. CHEST: Clear to auscultation bilaterally. ABDOMEN: The abdomen is soft, nontender and nondistended. EXTREMITIES: No edema, erythema or cyanosis. SKIN: Without any petechiae or lesions. NEUROLOGIC: No focal deficit. PSYCHIATRIC: Mood and affect are appropriate. LABORATORY DATA: WBC 7.4, hemoglobin is 9, platelet count is 77,000. Serum chemistries show sodium 133, potassium 3.8, CO2 20.3, BUN is 19, GFR is 41, glucose is 199, lactic acid is 1.5, calcium is 7.80, phosphorus is 2.1, magnesium is 1.8, total bilirubin is 5.9, alkaline phosphatase is 2132. CK is 792. Troponins are mildly elevated 0.08. Total protein is 4.9, albumin is 2. Coags show PT of 17.1, INR is 1.5, fibrinogen is 623. Hepatitis panel is pending. IMAGING STUDIES: Reviewed in the electronic medical record. ASSESSMENT AND PLAN: This is a 81-year-old male with past medical history of hypertension, coronary artery disease, congestive heart failure who presents to the emergency room with a two to three week history of anorexia, fatigue, and significant weight loss of 40 pounds who is now admitted to the ICU for sepsis and hypotension. 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 1. Findings of metastatic disease to the bone. This is concerning for underlying malignancy. Prostate cancer is high on the differential. PSA levels are pending. From the imaging, it appears that the right iliac crest can be biopsied. In order to make a diagnosis, will need a tissue biopsy. The patient is currently unstable and once he is more stable and off the pressors, I would recommend a CT-guided biopsy of the iliac crest. 2. Normocytic anemia with borderline MCV. Anemia studies show anemia of chronic inflammation with elevated ferritin. Serum iron is low and iron saturation is also somewhat low. There is also concomitant iron deficiency. We will start this patient on oral iron. We need to make sure that there is no underlying hemolysis. His total bilirubin is elevated at 5.9, indirect bilirubin is also elevated at 2.1. We will check an LDH and haptoglobin as well as a direct Rita test to obtain a stool hemoccult. The patient has been seen by GI. 3. Thrombocytopenia. His platelet count on admission was 157 and it has dropped to 77,000. this is likely secondary to sepsis and possible DIC. Check fibrinogen levels. Will review peripheral smear. We need to rule out underlying microangiopathy. Follow up on the hepatitis panel. 4. Transaminitis and hyperbilirubinemia ? Secondary to shock. 5. Elevated creatinine kinase and mild elevation of troponins. Further workup per primary team. 6. Malnutrition and hypoalbuminemia with an albumin of 2.1. 7. Acute kidney injury with creatinine of 1.74, GFR of 38 likely from shock and hypotension. Thank you for allowing me to participate in the care of this patient. I will continue to follow this patient along. MD TALIA Musa/CATALINA /3:44 PM /4:36 PM MERNA
[2017-04-12] VITALS (18 sets, daily range): BP systolic 106–125; BP diastolic 57–77; PULSE 96–118; RESP 19–28; TEMP 97.4–97.8; O2SAT 89–93
[2017-04-12] MEDS: CHLORHEXIDINE GLUCONATE 2 % 1 PACK (2 CLOTHS)(taper/protocol) TOPICAL SCH (04:00)
[2017-04-12 04:12] LABS: AUTOMATED NEUTROPHIL # 4.3 TH/MM3 (1.8-7.7); BASOPHIL % 0.1 % (0.0-2.0); EOSINOPHIL % 0.2 % (0.0-4.0); HEMATOCRIT 22.7 % (39.0-51.0); LYMPH % 13.3 % (9.0-44.0); LYMPHOCYTE # 0.7 TH/MM3 (1.0-4.8); MEAN CELL VOLUME 80.2 FL (80.0-100.0); MEAN CORPUSCULAR HEMOGLOBIN 27.8 PG (27.0-34.0); MEAN CORPUSCULAR HGB CONC 34.6 % (32.0-36.0); MONO % 4.3 % (0.0-8.0); NEUT % 82.1 % (16.0-70.0); PLATELET COUNT 52 TH/MM3 (150-450); RED BLOOD COUNT 2.83 MIL/MM3 (4.50-5.90); RED CELL DISTRIBUTION WIDTH 15.7 % (11.6-17.2); WHITE BLOOD COUNT 5.2 TH/MM3 (4.0-11.0)
[2017-04-12 04:13] LABS: HEMO FLAGS AUTO DIFF
[2017-04-12 04:36] LABS: ALT (GPT) 97 U/L (12-78); ANION GAP 11 MEQ/L (5-15); AST (GOT) 149 U/L (15-37); BICARBONATE 19.5 MEQ/L (21.0-32.0); BLOOD UREA NITROGEN 15 MG/DL (7-18); CHLORIDE 97 MEQ/L (98-107); GLOMERULAR FILTRATION RATE 65 ML/MIN (>89); MAGNESIUM 1.7 MG/DL (1.5-2.5); POTASSIUM 3.7 MEQ/L (3.5-5.1); SODIUM (NA) 127 MEQ/L (136-145)
[2017-04-12 04:51] LABS: ALKALINE PHOSPHATASE 1929 U/L (45-117); IMMUNOGLOBULIN A 86 MG/DL (103-568); IMMUNOGLOBULIN G 450 MG/DL (680-1670); IMMUNOGLOBULIN M 42 MG/DL (38-231); INDIRECT BILIRUBIN 1.4 MG/DL (0.0-0.8); TOTAL BILIRUBIN ADULT 5.4 MG/DL (0.2-1.0)
[2017-04-12 05:02] LABS: BANDS 11 % (0-6); MYELOCYTES 1 % (0-0); NEUTROPHIL # MANUAL DIFF 4.5 TH/MM3 (1.8-7.7); POLYS (SEG NEUTROPHILS) 75 % (16-70); WBC DIFF SAMPLE 100
[2017-04-12 05:03] LABS: PLATELET ESTIMATE SMEAR LOW (NORMAL); PLATELET MORPHOLOGY NORMAL (NORMAL); SCAN/DIFF FINAL DIFF MANUAL
[2017-04-12 05:04] LABS: ACANTHOCYTES OCC (NORMAL)
[2017-04-12] MEDS: INSULIN NovoLIN REGULAR SUPPLEMENTAL SCALE SQ SCH ×4 (05:15→22:16)
[2017-04-12] MEDS: PIPERACIL-TAZO 3.375 GM PREMIX 50 ML IV SCH ×3 (05:19→18:00)
[2017-04-12] MEDS: HYDROCORTISONE SOD SUCCINATE 100 MG VIAL IV PUSH SCH ×3 (05:19→20:43)
[2017-04-12] MEDS ORDERED: MAGNESIUM SULFATE INJ 4 GM in SODIUM CHLORIDE 0.9% INJ 92 ML IV PRN (07:30)
[2017-04-12] MEDS ORDERED: POTASSIUM CHLOR 40 MEQ PREMIX 100 ML IV-CENTRAL PRN (07:30)
[2017-04-12] MEDS ORDERED: POTASSIUM CHLOR 20 MEQ PREMIX 100 ML IV PRN ×2 (07:30)
[2017-04-12] MEDS ORDERED: MAGNESIUM OXIDE 400 MG TAB PO PRN (07:30)
[2017-04-12] MEDS ORDERED: POTASSIUM PHOSPHATE MONOBASIC 500 MG TAB PO/TUBE PRN (07:30)
[2017-04-12] MEDS ORDERED: POTASSIUM PHOSPHATE MONOBASIC 500 MG TAB PO PRN (07:30)
[2017-04-12] MEDS ORDERED: POTASSIUM CHLORIDE 25 MEQ EFFERVESCENT TAB PO PRN (07:30)
[2017-04-12] MEDS ORDERED: MAGNESIUM SULFATE INJ 2 GM in SODIUM CHLORIDE 0.9% INJ 96 ML IV PRN (07:30)
--- NOTE | 2017-04-12 07:30 | HHI.CCPN ---
Subjective Remarks/Hospital Course Frail, elderly man admitted earlier today with dehydration and general fatigue, recent weight loss. Has developed sustained tachycardia to 130s with increased O2 requirements. Now with worsening hypotension requiring vasopressor support. 04/10 Patient is on Levophed 23 mics. Afebrile. Denies any CP/SOB, N/V abdominal pain 04/11 Patient is on Neosyn and Vasopressin. On 5L oxygen. CT abd/pelvis showed bony mets unclear primary. Afebrile. 04/12 No acute events overnight. Patient is off Neosyn remains on Vasopressin. Afebrile. Objective Vital Signs Date Time Temp Pulse Resp B/P Pulse Ox O2 Delivery O2 Flow Rate FiO2 04/12/17 02:00 96 04/12/17 00:00 97.7 24 115/65 91 04/11/17 20:22 Nasal Cannula 4.00 04/10/17 03:25 100 Intake and Output 04/11/17 04/11/17 04/12/17 08:00 16:00 00:00 Intake Total 1446 ml 1967 ml 1527 ml Output Total 800 ml 700 ml 550 ml Balance 646 ml 1267 ml 977 ml Result Diagram: 04/12/17 0400 04/12/17 0400 Other Results Laboratory Tests Test 04/11/17 04/11/17 04/12/17 08:30 16:40 04:00 Prothrombin Time 17.1 SEC Prothromb Time International 1.5 RATIO Ratio Fibrinogen 623 mg/dL 600 mg/dL Haptoglobin 245 MG/DL Lactate Dehydrogenase 277 U/L Blood Type O POSITIVE Direct Antiglobulin Test NEGATIVE (Rita) White Blood Count 5.2 TH/MM3 Red Blood Count 2.83 MIL/MM3 Hemoglobin 7.9 GM/DL Hematocrit 22.7 % Mean Corpuscular Volume 80.2 FL Mean Corpuscular Hemoglobin 27.8 PG Mean Corpuscular Hemoglobin 34.6 % Concent Red Cell Distribution Width 15.7 % Platelet Count 52 TH/MM3 Mean Platelet Volume 7.8 FL Neutrophils (%) (Auto) 82.1 % Lymphocytes (%) (Auto) 13.3 % Monocytes (%) (Auto) 4.3 % Eosinophils (%) (Auto) 0.2 % Basophils (%) (Auto) 0.1 % Neutrophils # (Auto) 4.3 TH/MM3 Lymphocytes # (Auto) 0.7 TH/MM3 Monocytes # (Auto) 0.2 TH/MM3 Eosinophils # (Auto) 0.0 TH/MM3 Basophils # (Auto) 0.0 TH/MM3 CBC Comment AUTO DIFF Differential Total Cells 100 Counted Neutrophils % (Manual) 75 % Band Neutrophils % 11 % Lymphocytes % 11 % Monocytes % 2 % Neutrophils # (Manual) 4.5 TH/MM3 Myelocytes 1 % Differential Comment FINAL DIFF MANUAL Platelet Estimate LOW Platelet Morphology Comment NORMAL Acanthocytes OCC Blood Smear Pathologist Review Sodium Level 127 MEQ/L Potassium Level 3.7 MEQ/L Chloride Level 97 MEQ/L Carbon Dioxide Level 19.5 MEQ/L Anion Gap 11 MEQ/L Blood Urea Nitrogen 15 MG/DL Creatinine 1.09 MG/DL Estimat Glomerular Filtration 65 ML/MIN Rate Random Glucose 162 MG/DL Calcium Level 8.4 MG/DL Phosphorus Level 1.7 MG/DL Magnesium Level 1.7 MG/DL Total Bilirubin 5.4 MG/DL Direct Bilirubin 4.0 MG/DL Indirect Bilirubin 1.4 MG/DL Aspartate Amino Transf 149 U/L (AST/SGOT) Alanine Aminotransferase 97 U/L (ALT/SGPT) Alkaline Phosphatase 1929 U/L Total Protein 5.0 GM/DL Albumin 1.9 GM/DL Immunoglobulin G Total 450 MG/DL Immunoglobulin A 86 MG/DL Immunoglobulin M 42 MG/DL Imaging Last Impressions Chest X-Ray 04/10/17 0000 Signed Impressions: Service Date/Time: Monday, April 10, 2017 16:10 - CONCLUSION: Central line in good position. Kartik Santiago MD FACR Chest CT 04/10/17 0000 Signed Impressions: Service Date/Time: Monday, April 10, 2017 18:39 - CONCLUSION: Minimal bibasilar parenchymal changes are evident. There is no evidence for a primary carcinoma of the lung. There is mild dilatation of the ascending aorta. Moderate vascular calcifications are noted. There is no pericardial effusion. Review of bone windows reveals what looks like widespread sclerotic metastatic disease. This could be biopsied percutaneously for diagnosis. Prostate would be the most likely diagnosis to cause this. Kartik Santiago MD FACR Abdomen/Pelvis CT 04/10/17 0000 Signed Impressions: Service Date/Time: Monday, April 10, 2017 18:39 - CONCLUSION: 1. 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 The right iliac crest could easily be biopsied percutaneously for diagnosis. 2. Prominent gallbladder with gallstones. 3. Site of primary is not identified. 4. There is no evidence for metastatic disease to the liver. Kartik Santiago MD FACR Liver Ultrasound 04/09/17 0000 Signed Impressions: Service Date/Time: Sunday, April 09, 2017 14:35 - CONCLUSION: 1. Cholelithiasis. 2. Echogenic liver compatible with fatty infiltration or hepatocellular disease. Alexandru Souza MD Objective Remarks GENERAL: Patient is 81 yo lying in bed in NAD SKIN: Warm and dry. HEAD: Normocephalic. EYES: No scleral icterus. No injection or drainage. NECK: Supple, trachea midline. No JVD or lymphadenopathy. CARDIOVASCULAR: Regular rate and rhythm without murmurs, gallops, or rubs. RESPIRATORY: Breath sounds equal bilaterally. No accessory muscle use. GASTROINTESTINAL: Abdomen soft, non-tender, nondistended. MUSCULOSKELETAL: No cyanosis, or edema. BACK: Nontender without obvious deformity. No CVA tenderness. Neuro: Awake and alert. A/P Assessment and Plan 1)Resp Insuff 2)Sepsis. 3)NOHEMI.. 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 11) Hx non sustained Vtach Plan: Neuro: Awake and alert Pulm: Continue with oxygen keep sat >92% Bronchodilators CV: Off Neosyn remains on Vasopressin) keep MAP>65mmHg On stress dose steroids- HC 100mg IV Q8 NS@75ml/hr, CVP monitoring. Lactic acid 1.5 Continue with ASA 81mg daily, hold Pravachol for elevated LFT Echo showed EF 45% Patient had non sustained Vtach as outpatient and was scheduled to see Dr. Pa as outpatient for defibrillator placement. : Monitor renal function, I/O's, electrolytes replacement as needed. Continue with IVF- monitor CK's. Renal function is improving with Cr 1.09 from 1.63 GI: On PO diet, on Protonix 40mg daily for GI prophylaxis Monitor LFT;s( trending down), US Liver: Cholelithiasis. Echogenic liver compatible with fatty infiltration or hepatocellular disease. CT abd/pelvis: Metastatic bone disease unclear primary ? prostate. Follow up on PSA level. GI is following, for HIDA scan ID: Continue with abx ( Zosyn)monitor for signs of infections ( fever, WBC) ID is following- Dr. Vogt Follow up on BC- NGTD CXR: No acute disease, UA unremarkable. Heme/Onc Monitor CBC, coags/Fibrinogen- Fibrinogen level 600 Might need biopsy of right iliac crest. Onc is following- Dr. Patricio Mays: SSI with accuchecks GI prophylaxis- Protonix 40mg daily DVT prophylaxis- Lovenox on hold for thrombocytopenia Lines: Right IJ CVP placed 04/10 CCT 30 mins Cherelle Palmer MD April 12, 2017 07:30
[2017-04-12 08:22] LABS: AUTOMATED NEUTROPHIL # 4.3 TH/MM3 (1.8-7.7); BASOPHIL % 0.2 % (0.0-2.0); EOSINOPHIL % 0.1 % (0.0-4.0); HEMATOCRIT 22.8 % (39.0-51.0); LYMPH % 13.3 % (9.0-44.0); LYMPHOCYTE # 0.7 TH/MM3 (1.0-4.8); MEAN CELL VOLUME 79.7 FL (80.0-100.0); MEAN CORPUSCULAR HEMOGLOBIN 28.3 PG (27.0-34.0); MEAN CORPUSCULAR HGB CONC 35.5 % (32.0-36.0); MONO % 4.8 % (0.0-8.0); NEUT % 81.6 % (16.0-70.0); PLATELET COUNT 55 TH/MM3 (150-450); RED BLOOD COUNT 2.86 MIL/MM3 (4.50-5.90); RED CELL DISTRIBUTION WIDTH 15.8 % (11.6-17.2); WHITE BLOOD COUNT 5.2 TH/MM3 (4.0-11.0)
[2017-04-12 08:23] LABS: HEMO FLAGS AUTO DIFF
[2017-04-12 08:41] LABS: BICARBONATE 19.9 MEQ/L (21.0-32.0); POTASSIUM 3.8 MEQ/L (3.5-5.1)
[2017-04-12 09:00] LABS: ACANTHOCYTES OCC (NORMAL); BANDS 5 % (0-6); BURR CELLS 1+ (NORMAL); CORRECTED NUCLEATED RBC 1 /100 WBC (0-0); NEUTROPHIL # MANUAL DIFF 4.5 TH/MM3 (1.8-7.7); PLATELET ESTIMATE SMEAR LOW (NORMAL); PLATELET MORPHOLOGY NORMAL (NORMAL); POLYS (SEG NEUTROPHILS) 82 % (16-70); SCAN/DIFF FINAL DIFF MANUAL; WBC DIFF SAMPLE 100
[2017-04-12] MEDS: ASPIRIN EC 81 MG TABEC PO SCH (09:00)
[2017-04-12] MEDS: PANTOPRAZOLE SODIUM 40 MG VIAL IV PUSH SCH (09:27)
[2017-04-12] MEDS: MULTIVITAMINS/MINERALS THERAPEUTIC TAB PO SCH (09:27)
[2017-04-12] MEDS: DOCUSATE SODIUM 50 MG/SENNA 8.6 MG TAB PO SCH ×2 (09:27→20:43)
[2017-04-12] MEDS: SODIUM CHLORIDE 0.9% FLUSH 10 ML FLUSH IV FLUSH SCH ×2 (09:28→21:00)
[2017-04-12] MEDS: SODIUM PHOSPHATE INJ 30 MMOL in SODIUM CHLOR 0.9% 250 ML INJ 240 ML IV PRN (09:28)
--- NOTE | 2017-04-12 11:16 | MB ---
cc: SUKHJINDER STUART,KYARA POLLOCK,DEMOND NUNEZ M.D., M.D. DATE OF CONSULTATION: 04/12/2017 I have reviewed office and hospital records. HISTORY OF PRESENT ILLNESS The patient is a pleasant 81-year-old white man who was admitted because of fatigue and 40 pound weight loss along with loss of appetite. During this hospital stay he was found to have what appears to be diffuse bony metastases. He also had dehydration, generalized fatigue and tachycardia with possible sepsis and hypotension requiring vasopressor support. He is off of pressors. He has also had thrombocytopenia, anemia, acute kidney injury, elevated liver functions but is improving. The patient has a history of a dilated cardiomyopathy. SPECT nuclear 07/31 showed a 37% ejection fraction without ischemia. Echocardiogram this hospital stay showed a 45% ejection fraction with aortic sclerosis and trace to mild MR. The patient has had recurrent nonsustained ventricular tachycardia and is actually supposed to have a single chamber defibrillator with Dr. Pollock 04/15. The patient has no true cardiac symptoms at this point in time. His EKG has shown sinus rhythm with PVCs, left bundle branch block and he is having nonsustained ventricular tachycardia. PAST MEDICAL HISTORY As above but also includin. Hypertension. 2. Hyperlipidemia. 3. Diabetes. MEDICATION Medications in the office included: 1. Aspirin. 2. Carvedilol. 3. Enalapril. 4. Metformin. 5. Glyburide. 6. Simvastatin. His KOBY inhibitors and beta blockers have been on hold. He has been on antibiotics. SOCIAL HISTORY He is and does not smoke or drink. PAST SURGICAL HISTORY Has history also remarkable for left arm surgery. FAMILY HISTORY Remarkable for father with an RI. REVIEW OF SYSTEMS Review of systems remarkable for the above along with sleep issues. PHYSICAL EXAMINATION VITAL SIGNS: On exam afebrile. Vital signs stable. GENERAL: He is frail. HEENT: There is no xanthelasma and oropharyngeal mucosa normal. CHEST: Clear. JVD normal. HEART: S1-S2, no murmurs or gallops. ABDOMEN: Benign. EXTREMITIES: Show no cyanosis, clubbing or edema. PULSES: Carotids without bruits. Radials 1+. Femorals 1+ without bruits. Pedals trace to 1+. He is not ambulated. IMAGING STUDIES CT of the abdomen and pelvis shows bony metastasis along with gallstones. LABORATORY FINDINGS Hematocrit 22.8 with platelet count 55,000, fibrinogen elevated. Sodium 128, potassium 3.8, glucose 169, magnesium 1.7. Liver functions elevated. Albumin has been low at 2.0. PROBLEMS 1. Weight loss - most likely secondary to metastatic cancer. 2. Anemia/thrombocytopenia. 3. Possible sepsis. 4. Cardiomyopathy. 5. Nonsustained ventricular tachycardia. 6. Hypertension. 7. Diabetes. 8. Hyperlipidemia. 9. Acute kidney injury - improved. 10. Elevated liver functions. RECOMMENDATIONS 1. The patient's prognosis overall is unclear but probably poor given his metastatic disease. He is not a candidate for defibrillator. 2. DVT prophylaxis. 3. Supportive care through critical care and the other consultants. 4. Would reinitiate his beta blockers. I have spoken to Dr. Palmer. We will not follow but be available if needed. MD MARTHA Corley/TLL /10:29 AM /10:58 AM
--- NOTE | 2017-04-12 11:19 | EKG ---
Date Performed: 04/12/2017 Time Performed: 10:12:56 PTAGE: 81 years EKG: Baseline artifact is present. Unclear underlying rhythm PREMATURE COMPLEXES MARKED LEFT AXI S DEVIATION LEFT BUNDLE BRANCH BLOCK ABNORMAL ECG Compared to prior electrocardiogram,I cannot accura tely compare rhythm because of artifact. PREVIOUS TRACING : 04/09/2017 22.58 DOCTOR: Nate Monte Interpretating Date/Time 04/12/2017 11:17:48
[2017-04-12] MEDS: SODIUM CHLOR 0.9% 1000 ML INJ 1,000 ML IV SCH (11:28)
--- NOTE | 2017-04-12 12:33 | HHI.IDPN ---
Subjective Subjective Remarks co mild - mod RUQ pain hemodynamiocally more stable afebrile remains on vasopressin, off neosynephrine Antibiotics zosyn Allergies: Coded Allergies: No Known Allergies (Verified Allergy, Unknown, 02/04/06) Objective . Vital Signs Date Time Temp Pulse Resp B/P Pulse Ox O2 Delivery O2 Flow Rate FiO2 04/12/17 08:15 92 Nasal Cannula 6.00 04/12/17 06:00 98 04/12/17 04:00 97.6 99 22 114/71 90 04/12/17 04:00 99 04/12/17 02:00 96 04/12/17 00:00 97.7 98 24 115/65 91 04/12/17 00:00 98 04/11/17 22:00 93 04/11/17 20:22 92 Nasal Cannula 4.00 04/11/17 20:00 97.6 97 28 108/68 89 04/11/17 20:00 108/68 04/11/17 20:00 97 04/11/17 19:00 98 04/11/17 18:00 91 04/11/17 17:00 95 04/11/17 16:00 98.1 93 28 105/63 93 04/11/17 16:00 93 04/11/17 14:00 95 04/11/17 04/11/17 04/12/17 15:00 23:00 07:00 Intake Total 1967 ml 1527 ml 824 ml Output Total 700 ml 550 ml 240 ml Balance 1267 ml 977 ml 584 ml Intake Oral 240 ml 500 ml 200 ml IV Total 1727 ml 1027 ml 624 ml Output Urine Total 700 ml 550 ml 240 ml # Bowel Movements 0 0 . Laboratory Tests Test 04/11/17 04/11/17 04/12/17 04/12/17 02:54 16:40 04:00 07:45 White Blood Count 7.4 TH/MM3 5.2 TH/MM3 5.2 TH/MM3 Red Blood Count 3.22 MIL/MM3 2.83 MIL/MM3 2.86 MIL/MM3 Hemoglobin 9.0 GM/DL 7.9 GM/DL 8.1 GM/DL Hematocrit 26.2 % 22.7 % 22.8 % Mean Corpuscular Volume 81.5 FL 80.2 FL 79.7 FL Mean Corpuscular Hemoglobin 28.0 PG 27.8 PG 28.3 PG Mean Corpuscular Hemoglobin 34.4 % 34.6 % 35.5 % Concent Red Cell Distribution Width 15.7 % 15.7 % 15.8 % Platelet Count 77 TH/MM3 52 TH/MM3 55 TH/MM3 Mean Platelet Volume 7.8 FL 7.8 FL 8.2 FL Neutrophils (%) (Auto) 88.4 % 82.1 % 81.6 % Lymphocytes (%) (Auto) 7.6 % 13.3 % 13.3 % Monocytes (%) (Auto) 3.7 % 4.3 % 4.8 % Eosinophils (%) (Auto) 0.1 % 0.2 % 0.1 % Basophils (%) (Auto) 0.2 % 0.1 % 0.2 % Neutrophils # (Auto) 6.5 TH/MM3 4.3 TH/MM3 4.3 TH/MM3 Lymphocytes # (Auto) 0.6 TH/MM3 0.7 TH/MM3 0.7 TH/MM3 Monocytes # (Auto) 0.3 TH/MM3 0.2 TH/MM3 0.3 TH/MM3 Eosinophils # (Auto) 0.0 TH/MM3 0.0 TH/MM3 0.0 TH/MM3 Basophils # (Auto) 0.0 TH/MM3 0.0 TH/MM3 0.0 TH/MM3 CBC Comment AUTO DIFF AUTO DIFF AUTO DIFF Differential Total Cells 100 100 100 Counted Neutrophils % (Manual) 61 % 75 % 82 % Band Neutrophils % 27 % 11 % 5 % Lymphocytes % 10 % 11 % 8 % Monocytes % 2 % 2 % 5 % Neutrophils # (Manual) 6.5 TH/MM3 4.5 TH/MM3 4.5 TH/MM3 Differential Comment AUTO DIFF FINAL DIFF FINAL DIFF CONFIRMED MANUAL MANUAL Platelet Estimate LOW LOW LOW Platelet Morphology Comment NORMAL NORMAL NORMAL Hoa Cells 1+ 1+ Haptoglobin 245 MG/DL Myelocytes 1 % Acanthocytes OCC OCC Blood Smear Pathologist Review Nucleated Red Blood Cells 1 /100 WBC Laboratory Tests Test 04/10/17 04/11/17 04/11/17 04/12/17 19:40 02:54 16:40 04:00 Lactic Acid Level 1.5 mmol/L Sodium Level 133 MEQ/L 127 MEQ/L Potassium Level 3.8 MEQ/L 3.7 MEQ/L Chloride Level 101 MEQ/L 97 MEQ/L Carbon Dioxide Level 20.3 MEQ/L 19.5 MEQ/L Anion Gap 12 MEQ/L 11 MEQ/L Blood Urea Nitrogen 19 MG/DL 15 MG/DL Creatinine 1.63 MG/DL 1.09 MG/DL Estimat Glomerular Filtration 41 ML/MIN 65 ML/MIN Rate Random Glucose 199 MG/DL 162 MG/DL Calcium Level 7.8 MG/DL 8.4 MG/DL Phosphorus Level 2.1 MG/DL 1.7 MG/DL Magnesium Level 1.8 MG/DL 1.7 MG/DL Total Bilirubin 5.9 MG/DL 5.4 MG/DL Aspartate Amino Transf 189 U/L 149 U/L (AST/SGOT) Alanine Aminotransferase 100 U/L 97 U/L (ALT/SGPT) Alkaline Phosphatase 2132 U/L 1929 U/L Total Creatine Kinase 792 U/L Creatine Kinase MB 1.2 NG/ML Creatine Kinase MB % 0.2 % Troponin I 0.08 NG/ML Total Protein 4.9 GM/DL 5.0 GM/DL Albumin 2.0 GM/DL 1.9 GM/DL Lactate Dehydrogenase 277 U/L Direct Bilirubin 4.0 MG/DL Indirect Bilirubin 1.4 MG/DL Test 04/12/17 07:45 Sodium Level 128 MEQ/L Potassium Level 3.8 MEQ/L Chloride Level 96 MEQ/L Carbon Dioxide Level 19.9 MEQ/L Anion Gap 12 MEQ/L Blood Urea Nitrogen 17 MG/DL Creatinine 1.06 MG/DL Estimat Glomerular Filtration 67 ML/MIN Rate Random Glucose 169 MG/DL Calcium Level 8.0 MG/DL Phosphorus Level 1.8 MG/DL Magnesium Level 1.7 MG/DL Microbiology Date/Time Procedure Status Source Growth 04/10/17 00:05 Aerobic Blood Culture - Preliminary Resulted Blood Peripheral NO GROWTH IN 2 DAYS 04/10/17 00:05 Anaerobic Blood Culture - Preliminary Resulted Blood Peripheral NO GROWTH IN 2 DAYS 04/10/17 00:15 Aerobic Blood Culture - Preliminary Resulted Blood Peripheral NO GROWTH IN 2 DAYS 04/10/17 00:15 Anaerobic Blood Culture - Preliminary Resulted Blood Peripheral NO GROWTH IN 2 DAYS Imaging Last Impressions Chest X-Ray 04/10/17 0000 Signed Impressions: Service Date/Time: Monday, April 10, 2017 16:10 - CONCLUSION: Central line in good position. Kartik Santiago MD FACR Chest CT 04/10/17 0000 Signed Impressions: Service Date/Time: Monday, April 10, 2017 18:39 - CONCLUSION: Minimal bibasilar parenchymal changes are evident. There is no evidence for a primary carcinoma of the lung. There is mild dilatation of the ascending aorta. Moderate vascular calcifications are noted. There is no pericardial effusion. Review of bone windows reveals what looks like widespread sclerotic metastatic disease. This could be biopsied percutaneously for diagnosis. Prostate would be the most likely diagnosis to cause this. Kartik Santiago MD FACR Abdomen/Pelvis CT 04/10/17 0000 Signed Impressions: Service Date/Time: Monday, April 10, 2017 18:39 - CONCLUSION: 1. 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 The right iliac crest could easily be biopsied percutaneously for diagnosis. 2. Prominent gallbladder with gallstones. 3. Site of primary is not identified. 4. There is no evidence for metastatic disease to the liver. Kartik Santiago MD FACR Liver Ultrasound 04/09/17 0000 Signed Impressions: Service Date/Time: Sunday, April 09, 2017 14:35 - CONCLUSION: 1. Cholelithiasis. 2. Echogenic liver compatible with fatty infiltration or hepatocellular disease. Alexandru Souza MD Physical Exam CONSTITUTIONAL/GENERAL: This is a thin elderly chronically ill appaering patient with stigmata of rapid weight loss, in no apparent distress. TUBES/LINES/DRAINS: SKIN: + mild jaundice, rashes, or lesions.Skin temperature appropriate. Not diaphoretic. HEAD: Atraumatic. Normocephalic. EYES: . + scleral icterus. No injection or drainage. Fundi not examined. ENT: Hearing grossly normal. Nose without bleeding or purulent drainage. Oral mucosae dry without visible erythema, exudates, masses, or lesions. poor dentition NECK: Trachea midline. Supple, nontender. CARDIOVASCULAR: Regular rate and rhythm without murmurs, gallops, or rubs. No JVD. Peripheral pulses symmetric. RESPIRATORY/CHEST: Symmetric, unlabored respirations. Clear to auscultation. GASTROINTESTINAL: Abdomen soft, + moderately tender RUq + Wyatt, nondistended. No hepato-splenomegaly, or palpable masses. No guarding. Bowel sounds present. GENITOURINARY: Without palpable bladder distension. Huerta catheter in place with clear yellow urine MUSCULOSKELETAL: Extremities without clubbing, cyanosis, or edema. No joint tenderness or effusion noted. No calf tenderness. No mottling or clubbing. NEUROLOGICAL: Awake and alert. Non focal PSYCHIATRIC: No obvious anxiety/depression. no apparent hallucinations or other psychotic thought process. Assessment & Plan Remarks Sepsis, suspected, source is not ID'd yet suspect calculosu cholecysttitis": prominent gallbladr with stones; + Wyatt and abnormal LFTs - hypotension lactic acidosis, extreme bandemia, - metastatic cance r of unknow primary with bone mets accesible for diagnostic bx Extremely high AP, bilirubin and abd pain ? biliary obstruction from primary tumor - no e/o ca however on CT CT chest not sugg of PNA, clin pic not supporting dx of PNA either REC's: HIDA - cont Jeannette Daniels Dr, MD April 12, 2017 12:33
--- NOTE | 2017-04-12 14:49 | PD.ONC.PN ---
Subjective Subjective Remarks nad appears frail and weak still on pressors no bleeding denies any pain d/w rn Objective Data Date Time Temp Pulse Resp B/P Pulse Ox O2 Delivery O2 Flow Rate FiO2 04/12/17 08:15 92 Nasal Cannula 6.00 04/12/17 06:00 98 04/12/17 04:00 97.6 99 22 114/71 90 04/12/17 04:00 99 04/12/17 02:00 96 04/12/17 00:00 97.7 98 24 115/65 91 04/12/17 00:00 98 04/11/17 22:00 93 04/11/17 20:22 92 Nasal Cannula 4.00 04/11/17 20:00 97.6 97 28 108/68 89 04/11/17 20:00 108/68 04/11/17 20:00 97 04/11/17 19:00 98 04/11/17 18:00 91 04/11/17 17:00 95 04/11/17 16:00 98.1 93 28 105/63 93 04/11/17 16:00 93 04/12/17 04/12/17 04/12/17 07:00 15:00 23:00 Intake Total 824 ml Output Total 240 ml Balance 584 ml Result Diagram: 04/12/17 0745 04/12/17 0745 Laboratory Results Laboratory Tests Test 04/11/17 04/12/17 04/12/17 16:40 04:00 07:45 Haptoglobin 245 MG/DL Fibrinogen 600 mg/dL Lactate Dehydrogenase 277 U/L Blood Type O POSITIVE Direct Antiglobulin Test NEGATIVE (Rita) White Blood Count 5.2 TH/MM3 5.2 TH/MM3 Red Blood Count 2.83 MIL/MM3 2.86 MIL/MM3 Hemoglobin 7.9 GM/DL 8.1 GM/DL Hematocrit 22.7 % 22.8 % Mean Corpuscular Volume 80.2 FL 79.7 FL Mean Corpuscular Hemoglobin 27.8 PG 28.3 PG Mean Corpuscular Hemoglobin 34.6 % 35.5 % Concent Red Cell Distribution Width 15.7 % 15.8 % Platelet Count 52 TH/MM3 55 TH/MM3 Mean Platelet Volume 7.8 FL 8.2 FL Neutrophils (%) (Auto) 82.1 % 81.6 % Lymphocytes (%) (Auto) 13.3 % 13.3 % Monocytes (%) (Auto) 4.3 % 4.8 % Eosinophils (%) (Auto) 0.2 % 0.1 % Basophils (%) (Auto) 0.1 % 0.2 % Neutrophils # (Auto) 4.3 TH/MM3 4.3 TH/MM3 Lymphocytes # (Auto) 0.7 TH/MM3 0.7 TH/MM3 Monocytes # (Auto) 0.2 TH/MM3 0.3 TH/MM3 Eosinophils # (Auto) 0.0 TH/MM3 0.0 TH/MM3 Basophils # (Auto) 0.0 TH/MM3 0.0 TH/MM3 CBC Comment AUTO DIFF AUTO DIFF Differential Total Cells 100 100 Counted Neutrophils % (Manual) 75 % 82 % Band Neutrophils % 11 % 5 % Lymphocytes % 11 % 8 % Monocytes % 2 % 5 % Neutrophils # (Manual) 4.5 TH/MM3 4.5 TH/MM3 Myelocytes 1 % Differential Comment FINAL DIFF FINAL DIFF MANUAL MANUAL Platelet Estimate LOW LOW Platelet Morphology Comment NORMAL NORMAL Acanthocytes OCC OCC Blood Smear Pathologist Review Sodium Level 127 MEQ/L 128 MEQ/L Potassium Level 3.7 MEQ/L 3.8 MEQ/L Chloride Level 97 MEQ/L 96 MEQ/L Carbon Dioxide Level 19.5 MEQ/L 19.9 MEQ/L Anion Gap 11 MEQ/L 12 MEQ/L Blood Urea Nitrogen 15 MG/DL 17 MG/DL Creatinine 1.09 MG/DL 1.06 MG/DL Estimat Glomerular Filtration 65 ML/MIN 67 ML/MIN Rate Random Glucose 162 MG/DL 169 MG/DL Calcium Level 8.4 MG/DL 8.0 MG/DL Phosphorus Level 1.7 MG/DL 1.8 MG/DL Magnesium Level 1.7 MG/DL 1.7 MG/DL Total Bilirubin 5.4 MG/DL Direct Bilirubin 4.0 MG/DL Indirect Bilirubin 1.4 MG/DL Aspartate Amino Transf 149 U/L (AST/SGOT) Alanine Aminotransferase 97 U/L (ALT/SGPT) Alkaline Phosphatase 1929 U/L Total Protein 5.0 GM/DL Albumin 1.9 GM/DL Immunoglobulin G Total 450 MG/DL Immunoglobulin A 86 MG/DL Immunoglobulin M 42 MG/DL Nucleated Red Blood Cells 1 /100 WBC Hoa Cells 1+ Culture Results Microbiology Date/Time Procedure Status Source Growth 04/10/17 00:05 Aerobic Blood Culture - Preliminary Resulted Blood Peripheral NO GROWTH IN 2 DAYS 5/27/17 00:05 Anaerobic Blood Culture - Preliminary Resulted Blood Peripheral NO GROWTH IN 2 DAYS 04/10/17 00:15 Aerobic Blood Culture - Preliminary Resulted Blood Peripheral NO GROWTH IN 2 DAYS 04/10/17 00:15 Anaerobic Blood Culture - Preliminary Resulted Blood Peripheral NO GROWTH IN 2 DAYS Administered Medications Medications (Trade) Dose Ordered Sig/John Route PRN Reason Start Time Stop Time Status Last Admin Dose Admin Aspirin (Ecotrin Ec) 81 mg DAILY PO 04/10/17 09:00 04/10/17 09:02 Multivitamins/ Minerals Therapeutic (Theragran M Tab) 1 tab DAILY PO 04/10/17 09:00 04/12/17 09:27 Pravastatin Sodium 80 mg 80 mg HS PO 04/09/17 21:00 Hold 04/09/17 19:47 Sodium Chloride (NS 1000 ml Inj) 1,000 ml @ 75 mls/hr [id number] IV 04/09/17 13:44 04/12/17 11:28 Sodium Chloride (NS Flush) 2 ml BID IV FLUSH 04/09/17 21:00 04/12/17 09:28 Ondansetron HCl (Zofran Inj) 4 mg Q6H PRN IVP NAUSEA OR VOMITING 04/09/17 13:45 04/09/17 20:27 Senna/Docusate Sodium (Kylee-Colace) 1 tab BID PO 04/09/17 21:00 04/12/17 09:27 Magnesium Hydroxide (Milk Of Magnesia Liq) 30 ml Q12H PRN PO MILD - MODERATE CONSTIPATION 04/09/17 13:45 04/09/17 22:15 Sennosides (Senokot) 17.2 mg Q12H PRN PO MODERATE - SEVERE CONSTIPATION 04/09/17 13:45 04/12/17 09:27 Lactulose (Lactulose Liq) 30 ml DAILY PRN PO SEVERE CONSITIPATION 04/09/17 13:45 04/09/17 19:46 Enoxaparin Sodium 30 mg 30 mg Q24H SQ 04/09/17 15:00 Hold 04/10/17 16:45 Piperacillin Sod/ Tazobactam Sod 50 ml @ 100 mls/hr Q6H IV 04/10/17 00:00 04/12/17 11:16 Norepinephrine Bitartrate (Levophed-Dextrose Drip) 250 ml @ 0 mls/hr TITRATE IV 04/10/17 03:45 04/10/17 11:30 Chlorhexidine Gluconate (Chlorhexidine 2% Cloth) 3 pack DAILY@04 TOPICAL 04/11/17 04:00 04/15/17 04:01 04/12/17 04:00 Pantoprazole Sodium (Protonix Inj) 40 mg Q24H IV PUSH 04/10/17 10:45 04/12/17 09:27 Insulin Human Regular 1 1 Q6H SQ 04/10/17 11:15 04/12/17 11:20 Phenylephrine HCl/ Dextrose (Neosynephrine Inj/D5W 500 ml Inj) 500 ml @ 0 mls/hr TITRATE IV 04/10/17 17:30 04/11/17 13:49 Hydrocortisone Sodium Succinate 100 mg 100 mg Q8HR IV PUSH 04/11/17 01:30 04/12/17 05:19 Vasopressin 40 units/Dextrose 100 ml @ 4.5 mls/hr [id number] IV 04/11/17 01:30 04/11/17 23:08 Sodium Phosphate/ Sodium Chloride (Sodium Phosphate Inj/NS 250 ml Inj) 250 ml @ 42 mls/hr UNSCH PRN IV For Phosphorus < 2.5 mg/dL 04/12/17 07:30 04/12/17 09:28 Objective Remarks GENERAL: nad SKIN: Warm and dry. LYMPHATIC: No adenopathy. CARDIOVASCULAR: Regular rate and rhythm without murmurs. RESPIRATORY: Breath sounds equal bilaterally. No accessory muscle use. GASTROINTESTINAL: Abdomen soft, non-tender, nondistended. EXTREMITIES: No cyanosis, or edema. Assessment/Plan Problem List: (1) Weakness Status: Acute (2) Bandemia without diagnosis of specific infection Status: Acute (3) Elevated alkaline phosphatase level Status: Acute Assessment 81-year-old male with past medical history of hypertension, coronary artery disease, congestive heart failure who presents to the emergency room with a two to three week history of anorexia, fatigue, and significant weight loss of 40 pounds who is now admitted to the ICU for sepsis and hypotension. 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 1. Findings of metastatic disease to the bone. - PSA levels pending. [id number] WNL - CT guided biopsy of iliac crest once more stable 2. Normocytic anemia with borderline MCV. Anemia studies show anemia of chronic inflammation with elevated ferritin. Serum iron is low and iron saturation is also somewhat low. - oral iron - no evidence of hemolysis. Haptoglobin normal - stool occult pending. seen by GI 3. Thrombocytopenia. His platelet count on admission was 157 and it has dropped to 77,000. this is likely secondary to sepsis and possible DIC. - over DIC. fibrinogen is high - recheck coags and DIC panel in AM - hepatitis panel is negative 4. Transaminitis and hyperbilirubinemia ? Secondary to shock. - ? Biliary obstruction - HIDA scan 5. Elevated creatinine kinase and mild elevation of troponins. Further workup per primary team. 6. Malnutrition and hypoalbuminemia with an albumin of 2.1. 7. Acute kidney injury likely from shock and hypotension. worsening Sean Curry MD April 12, 2017 14:49
--- NOTE | 2017-04-12 15:24 | RADRPT ---
EXAM DATE/TIME: 04/12/2017 12:54 This report includes an Addendum and supersedes previous reports for this exam. [facility] COMPARISON: US ABDOMEN - LIVER, April 09, 2017, 14:35. CT ABDOMEN & PELVIS W/O CONTRAST, April 10, 2017, 18:39. INDICATIONS : Abdominal pain. DOSE: 4.2 mCi Tc99m Mebrofenin IV MEDICAL HISTORY : Cardiovascular disease. Congestive heart failure. Carcinoma, prostate. SURGICAL HISTORY : Prostatectomy. Hernia mesh. ENCOUNTER: Initial ACUITY: 2 days PAIN SCALE: 2/10 LOCATION: Right upper quadrant TECHNIQUE: Following the intravenous administration of radiotracer, dynamic sequential images were performed wit h continuous acquisition. FINDINGS: HEPATIC KINETICS: There is prompt uptake of radiotracer in the liver. No focal defects are seen. There is delayed wash out of activity from the liver. BILIARY CLEARANCE: Activity is not identified within the extrahepatic biliary system at 2 hours suggesting biliary obstr uction or hepatocellular dysfunction. GALLBLADDER: Activity is not identified within the gallbladder at 2 hours. CONCLUSION: No activity within the biliary system or gallbladder at 2 hours. The findings suggest biliary obstruc tion or hepatocellular dysfunction. Cystic duct patency cannot be assessed without activity in the bi liary system. Delayed imaging may be helpful for further evaluation of this patient. Esteban Murphy MD on April 12, 2017 at 15:18 Board Certified Radiologist. This report was verified electronically. ADDENDUM: On 24 hour delayed scanning, again no activity is identified in the GI tract. No significant activity is present in the biliary tree. Finding would be consistent with severe hepatocellular dysfunction a nd cholestatic physiology versus high-grade biliary obstruction. Cristobal Cárdenas MD on April 13, 2017 at 22:52 Board Certified Radiologist. This report was verified electronically.
[2017-04-12] MEDS: CARVEDILOL 3.125 MG TAB PO SCH (20:43)
[2017-04-12] MEDS: VASOPRESSIN INJ 40 UNITS in DEXTROSE 5% IN WATER 100ML INJ 98 ML IV SCH ×2 (21:58)
[2017-04-12] MEDS: ACETAMINOPHEN 325 MG TAB PO PRN (22:11)
[2017-04-13] VITALS (14 sets, daily range): BP systolic 114–132; BP diastolic 59–100; PULSE 97–113; RESP 20–33; TEMP 96.3–97.8; O2SAT 91–97
[2017-04-13] MEDS: SODIUM CHLOR 0.9% 1000 ML INJ 1,000 ML IV SCH (00:18)
[2017-04-13] MEDS: PIPERACIL-TAZO 3.375 GM PREMIX 50 ML IV SCH ×5 (01:00→22:05)
[2017-04-13] MEDS: CHLORHEXIDINE GLUCONATE 2 % 1 PACK (2 CLOTHS)(taper/protocol) TOPICAL SCH ×2 (01:12→23:11)
[2017-04-13] MEDS: INSULIN NovoLIN REGULAR SUPPLEMENTAL SCALE SQ SCH ×4 (05:15→22:04)
[2017-04-13] MEDS: HYDROCORTISONE SOD SUCCINATE 100 MG VIAL IV PUSH SCH ×3 (05:43→21:13)
[2017-04-13 05:47] LABS: AUTOMATED NEUTROPHIL # 4.9 TH/MM3 (1.8-7.7); BASOPHIL % 0.2 % (0.0-2.0); EOSINOPHIL % 0.2 % (0.0-4.0); HEMATOCRIT 25.4 % (39.0-51.0); LYMPHOCYTE # 0.5 TH/MM3 (1.0-4.8); MEAN CELL VOLUME 81.1 FL (80.0-100.0); MEAN CORPUSCULAR HEMOGLOBIN 27.5 PG (27.0-34.0); MONO % 3.8 % (0.0-8.0); NEUT % 86.8 % (16.0-70.0); PLATELET COUNT 61 TH/MM3 (150-450); RED BLOOD COUNT 3.14 MIL/MM3 (4.50-5.90); RED CELL DISTRIBUTION WIDTH 16.3 % (11.6-17.2); WHITE BLOOD COUNT 5.6 TH/MM3 (4.0-11.0)
[2017-04-13 05:56] LABS: INTERNATIONAL NORMALIZED RATIO 1.1 RATIO; PROTHROMBIN TIME - PATIENT 12.6 SEC (9.8-11.6)
[2017-04-13 05:59] LABS: HEMO FLAGS AUTO DIFF
[2017-04-13 06:17] LABS: ALKALINE PHOSPHATASE 2166 U/L (45-117); ALT (GPT) 108 U/L (12-78); ANION GAP 10 MEQ/L (5-15); AST (GOT) 142 U/L (15-37); BLOOD UREA NITROGEN 17 MG/DL (7-18); CHLORIDE 110 MEQ/L (98-107); GLOMERULAR FILTRATION RATE 73 ML/MIN (>89); POTASSIUM 3.6 MEQ/L (3.5-5.1); SODIUM (NA) 142 MEQ/L (136-145); TOTAL BILIRUBIN ADULT 6.7 MG/DL (0.2-1.0); TRANSFERRIN IRON PROFILE 122 MG/DL (200-360)
--- NOTE | 2017-04-13 07:36 | HHI.CCPN ---
Subjective Remarks/Hospital Course Frail, elderly man admitted earlier today with dehydration and general fatigue, recent weight loss. Has developed sustained tachycardia to 130s with increased O2 requirements. Now with worsening hypotension requiring vasopressor support. 04/10 Patient is on Levophed 23 mics. Afebrile. Denies any CP/SOB, N/V abdominal pain 04/11 Patient is on Neosyn and Vasopressin. On 5L oxygen. CT abd/pelvis showed bony mets unclear primary. Afebrile. 04/12 No acute events overnight. Patient is off Neosyn remains on Vasopressin. Afebrile. 04/13 No events overnight. Off all pressors. Afebrile. Objective Vital Signs Date Time Temp Pulse Resp B/P Pulse Ox O2 Delivery O2 Flow Rate FiO2 04/13/17 06:00 105 04/13/17 04:00 96.3 20 95 04/13/17 00:00 114/63 04/12/17 21:11 Nasal Cannula 5.00 04/10/17 03:25 100 Intake and Output 04/12/17 04/12/17 04/13/17 08:00 16:00 00:00 Intake Total 824 ml 1541 ml 591 ml Output Total 240 ml 1550 ml 1500 ml Balance 584 ml -9 ml -909 ml Result Diagram: 04/13/17 0530 04/13/17 0530 Other Results Laboratory Tests Test 04/12/17 04/12/17 04/13/17 07:45 20:30 05:30 White Blood Count 5.2 TH/MM3 5.6 TH/MM3 Red Blood Count 2.86 MIL/MM3 3.14 MIL/MM3 Hemoglobin 8.1 GM/DL 8.6 GM/DL Hematocrit 22.8 % 25.4 % Mean Corpuscular Volume 79.7 FL 81.1 FL Mean Corpuscular Hemoglobin 28.3 PG 27.5 PG Mean Corpuscular Hemoglobin 35.5 % 34.0 % Concent Red Cell Distribution Width 15.8 % 16.3 % Platelet Count 55 TH/MM3 61 TH/MM3 Mean Platelet Volume 8.2 FL 9.3 FL Neutrophils (%) (Auto) 81.6 % 86.8 % Lymphocytes (%) (Auto) 13.3 % 9.0 % Monocytes (%) (Auto) 4.8 % 3.8 % Eosinophils (%) (Auto) 0.1 % 0.2 % Basophils (%) (Auto) 0.2 % 0.2 % Neutrophils # (Auto) 4.3 TH/MM3 4.9 TH/MM3 Lymphocytes # (Auto) 0.7 TH/MM3 0.5 TH/MM3 Monocytes # (Auto) 0.3 TH/MM3 0.2 TH/MM3 Eosinophils # (Auto) 0.0 TH/MM3 0.0 TH/MM3 Basophils # (Auto) 0.0 TH/MM3 0.0 TH/MM3 CBC Comment AUTO DIFF AUTO DIFF Differential Total Cells 100 Counted Neutrophils % (Manual) 82 % Band Neutrophils % 5 % Lymphocytes % 8 % Monocytes % 5 % Neutrophils # (Manual) 4.5 TH/MM3 Nucleated Red Blood Cells 1 /100 WBC Differential Comment FINAL DIFF MANUAL Platelet Estimate LOW Platelet Morphology Comment NORMAL Hoa Cells 1+ Acanthocytes OCC Sodium Level 128 MEQ/L 142 MEQ/L Potassium Level 3.8 MEQ/L 3.6 MEQ/L Chloride Level 96 MEQ/L 110 MEQ/L Carbon Dioxide Level 19.9 MEQ/L 22.0 MEQ/L Anion Gap 12 MEQ/L 10 MEQ/L Blood Urea Nitrogen 17 MG/DL 17 MG/DL Creatinine 1.06 MG/DL 0.99 MG/DL Estimat Glomerular Filtration 67 ML/MIN 73 ML/MIN Rate Random Glucose 169 MG/DL 191 MG/DL Calcium Level 8.0 MG/DL 8.3 MG/DL Phosphorus Level 1.8 MG/DL 1.9 MG/DL Magnesium Level 1.7 MG/DL Alkaline Phosphatase 2039 U/L 2166 U/L Prothrombin Time 12.6 SEC Prothromb Time International 1.1 RATIO Ratio Fibrinogen 600 mg/dL Iron Level 155 MCG/DL Total Iron Binding Capacity 171 MCG/DL Percent Iron Saturation 90.7 % Transferrin 122 MG/DL Total Bilirubin 6.7 MG/DL Aspartate Amino Transf 142 U/L (AST/SGOT) Alanine Aminotransferase 108 U/L (ALT/SGPT) Total Protein 4.9 GM/DL Albumin 1.9 GM/DL Vitamin B12 Level 764 PG/ML Imaging Last Impressions Hepatobiliary Scan Nuclear Medicine 04/12/17 0000 Signed Impressions: Service Date/Time: Wednesday, April 12, 2017 12:54 - CONCLUSION: No activity within the biliary system or gallbladder at 2 hours. The findings suggest biliary obstruction or hepatocellular dysfunction. Cystic duct patency cannot be assessed without activity in the biliary system. Delayed imaging may be helpful for further evaluation of this patient. Esteban Murphy MD Chest X-Ray 04/10/17 0000 Signed Impressions: Service Date/Time: Monday, April 10, 2017 16:10 - CONCLUSION: Central line in good position. Kartik Santiago MD FACR Chest CT 04/10/17 0000 Signed Impressions: Service Date/Time: Monday, April 10, 2017 18:39 - CONCLUSION: Minimal bibasilar parenchymal changes are evident. There is no evidence for a primary carcinoma of the lung. There is mild dilatation of the ascending aorta. Moderate vascular calcifications are noted. There is no pericardial effusion. Review of bone windows reveals what looks like widespread sclerotic metastatic disease. This could be biopsied percutaneously for diagnosis. Prostate would be the most likely diagnosis to cause this. Kartik Santiago MD FACR Abdomen/Pelvis CT 04/10/17 0000 Signed Impressions: Service Date/Time: Monday, April 10, 2017 18:39 - CONCLUSION: 1. 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 The right iliac crest could easily be biopsied percutaneously for diagnosis. 2. Prominent gallbladder with gallstones. 3. Site of primary is not identified. 4. There is no evidence for metastatic disease to the liver. Kartik Santiago MD FACR Liver Ultrasound 04/09/17 0000 Signed Impressions: Service Date/Time: Sunday, April 09, 2017 14:35 - CONCLUSION: 1. Cholelithiasis. 2. Echogenic liver compatible with fatty infiltration or hepatocellular disease. Alexandru Souza MD Objective Remarks GENERAL: Patient is 81 yo lying in bed in NAD SKIN: Warm and dry. HEAD: Normocephalic. EYES: No scleral icterus. No injection or drainage. NECK: Supple, trachea midline. No JVD or lymphadenopathy. CARDIOVASCULAR: Regular rate and rhythm without murmurs, gallops, or rubs. RESPIRATORY: Breath sounds equal bilaterally. No accessory muscle use. GASTROINTESTINAL: Abdomen soft, non-tender, nondistended. MUSCULOSKELETAL: No cyanosis, or edema. BACK: Nontender without obvious deformity. No CVA tenderness. Neuro: Awake and alert. A/P Assessment and Plan 1)Resp Insuff 2)Sepsis. 3)NOHEMI.. 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 11) Hx non sustained Vtach Plan: Neuro: Awake and alert Pulm: Continue with oxygen keep sat >92% Bronchodilators CV: Monitor HR and BP keep MAP>65mmHg Decrease HC 50m IV Q6 Continue with ASA 81mg daily, hold Pravachol for elevated LFT Echo showed EF 45% Patient had non sustained Vtach as outpatient and was scheduled to see Dr. Pa as outpatient for defibrillator placement. : Monitor renal function, I/O's, electrolytes replacement per protocol. GI: On PO diet, on Protonix 40mg daily for GI prophylaxis Monitor LFT;s( trending down), US Liver: Cholelithiasis. Echogenic liver compatible with fatty infiltration or hepatocellular disease. CT abd/pelvis: Metastatic bone disease unclear primary ? prostate. Follow up on PSA level. GI is following, HIDA scan showed hepatocellular dysfunction vs biliary obstruction. For delayed imaging today. Hepatitis profile is negative. ID: Continue with abx ( Zosyn)monitor for signs of infections ( fever, WBC) ID is following- Dr. Vogt Follow up on BC- NGTD CXR: No acute disease, UA unremarkable. Heme/Onc Monitor CBC, coags/Fibrinogen- Fibrinogen level 600 Will need biopsy of right iliac crest per Onc- Dr. Curry Endo: SSI with accuchecks GI prophylaxis- Protonix 40mg daily DVT prophylaxis- Lovenox on hold for thrombocytopenia Lines: Right IJ CVP placed 04/10 Level 3 Cherelle Palmer MD April 13, 2017 07:36
[2017-04-13 07:55] LABS: BANDS 15 % (0-6); BASOPHILS 1 % (0-2); CORRECTED NUCLEATED RBC 2 /100 WBC (0-0); EOSINOPHILS 1 % (0-4); METAMYELOCYTES 2 % (0-1); NEUTROPHIL # MANUAL DIFF 4.5 TH/MM3 (1.8-7.7); OVALOCYTES 1+ (NORMAL); POLYS (SEG NEUTROPHILS) 64 % (16-70); WBC DIFF SAMPLE 100
[2017-04-13 07:56] LABS: ACANTHOCYTES OCC (NORMAL); PLATELET ESTIMATE SMEAR LOW (NORMAL); PLATELET MORPHOLOGY NORMAL (NORMAL); SCAN/DIFF FINAL DIFF MANUAL
[2017-04-13 08:01] LABS: MAGNESIUM 1.9 MG/DL (1.5-2.5)
[2017-04-13] MEDS: ASPIRIN EC 81 MG TABEC PO SCH (08:17)
[2017-04-13] MEDS: SODIUM CHLORIDE 0.9% FLUSH 10 ML FLUSH IV FLUSH SCH ×2 (08:17→21:13)
[2017-04-13] MEDS: CARVEDILOL 3.125 MG TAB PO SCH ×2 (08:17→21:13)
[2017-04-13] MEDS: DOCUSATE SODIUM 50 MG/SENNA 8.6 MG TAB PO SCH ×2 (08:17→21:13)
[2017-04-13] MEDS: MULTIVITAMINS/MINERALS THERAPEUTIC TAB PO SCH (08:17)
[2017-04-13] MEDS: PANTOPRAZOLE SODIUM 40 MG VIAL IV PUSH SCH (10:47)
--- NOTE | 2017-04-13 10:52 | PD.ONC.PN ---
Subjective Subjective Remarks Afebrile overnight. Patient resting in bed. Off pressor support. Objective Data Date Time Temp Pulse Resp B/P Pulse Ox O2 Delivery O2 Flow Rate FiO2 04/13/17 08:00 105 04/13/17 08:00 97.8 105 21 129/100 96 04/13/17 06:00 105 04/13/17 04:00 96.3 99 20 95 04/13/17 04:00 105 04/13/17 02:00 97 04/13/17 00:00 97 04/13/17 00:00 97.1 100 24 114/63 97 04/12/17 23:17 22 04/12/17 22:00 104 04/12/17 21:11 92 Nasal Cannula 5.00 04/12/17 20:00 97.4 112 28 120/57 92 04/12/17 20:00 112 04/12/17 18:00 113 04/12/17 18:00 113 24 119/72 89 04/12/17 17:00 107 04/12/17 17:00 107 25 106/77 91 04/12/17 16:00 105 04/12/17 16:00 97.8 107 24 117/74 90 04/12/17 14:00 101 04/12/17 13:00 118 04/12/17 12:00 105 04/12/17 12:00 97.6 105 19 117/59 93 04/12/17 11:00 115 27 120/66 91 04/12/17 11:00 110 04/13/17 04/13/17 04/13/17 07:00 15:00 23:00 Intake Total 510 ml Output Total 2000 ml Balance -1490 ml Result Diagram: 04/13/17 0530 04/13/17 0530 Laboratory Results Laboratory Tests Test 04/12/17 04/13/17 20:30 05:30 Phosphorus Level 1.9 MG/DL 1.5 MG/DL Alkaline Phosphatase 2039 U/L 2166 U/L White Blood Count 5.6 TH/MM3 Red Blood Count 3.14 MIL/MM3 Hemoglobin 8.6 GM/DL Hematocrit 25.4 % Mean Corpuscular Volume 81.1 FL Mean Corpuscular Hemoglobin 27.5 PG Mean Corpuscular Hemoglobin 34.0 % Concent Red Cell Distribution Width 16.3 % Platelet Count 61 TH/MM3 Mean Platelet Volume 9.3 FL Neutrophils (%) (Auto) 86.8 % Lymphocytes (%) (Auto) 9.0 % Monocytes (%) (Auto) 3.8 % Eosinophils (%) (Auto) 0.2 % Basophils (%) (Auto) 0.2 % Neutrophils # (Auto) 4.9 TH/MM3 Lymphocytes # (Auto) 0.5 TH/MM3 Monocytes # (Auto) 0.2 TH/MM3 Eosinophils # (Auto) 0.0 TH/MM3 Basophils # (Auto) 0.0 TH/MM3 CBC Comment AUTO DIFF Differential Total Cells 100 Counted Neutrophils % (Manual) 64 % Band Neutrophils % 15 % Lymphocytes % 11 % Monocytes % 6 % Eosinophils % 1 % Basophils % 1 % Neutrophils # (Manual) 4.5 TH/MM3 Metamyelocytes 2 % Nucleated Red Blood Cells 2 /100 WBC Differential Comment FINAL DIFF MANUAL Platelet Estimate LOW Platelet Morphology Comment NORMAL Ovalocytes 1+ Acanthocytes OCC Prothrombin Time 12.6 SEC Prothromb Time International 1.1 RATIO Ratio Fibrinogen 600 mg/dL Sodium Level 142 MEQ/L Potassium Level 3.6 MEQ/L Chloride Level 110 MEQ/L Carbon Dioxide Level 22.0 MEQ/L Anion Gap 10 MEQ/L Blood Urea Nitrogen 17 MG/DL Creatinine 0.99 MG/DL Estimat Glomerular Filtration 73 ML/MIN Rate Random Glucose 191 MG/DL Calcium Level 8.3 MG/DL Magnesium Level 1.9 MG/DL Iron Level 155 MCG/DL Total Iron Binding Capacity 171 MCG/DL Percent Iron Saturation 90.7 % Transferrin 122 MG/DL Total Bilirubin 6.7 MG/DL Aspartate Amino Transf 142 U/L (AST/SGOT) Alanine Aminotransferase 108 U/L (ALT/SGPT) Total Protein 4.9 GM/DL Albumin 1.9 GM/DL Vitamin B12 Level 764 PG/ML Administered Medications Medications (Trade) Dose Ordered Sig/John Route PRN Reason Start Time Stop Time Status Last Admin Dose Admin Aspirin (Ecotrin Ec) 81 mg DAILY PO 04/10/17 09:00 04/10/17 09:02 Multivitamins/ Minerals Therapeutic (Theragran M Tab) 1 tab DAILY PO 04/10/17 09:00 04/13/17 08:17 Pravastatin Sodium (Pravachol) 80 mg HS PO 04/09/17 21:00 Hold 04/09/17 19:47 Sodium Chloride (NS Flush) 2 ml BID IV FLUSH 04/09/17 21:00 04/13/17 08:17 Acetaminophen (Tylenol) 650 mg Q4H PRN PO TEMP > 100.4 04/09/17 13:45 04/12/17 22:11 Ondansetron HCl (Zofran Inj) 4 mg Q6H PRN IVP NAUSEA OR VOMITING 04/09/17 13:45 04/09/17 20:27 Senna/Docusate Sodium (Kylee-Colace) 1 tab BID PO 04/09/17 21:00 04/13/17 08:17 Magnesium Hydroxide (Milk Of Magnesia Liq) 30 ml Q12H PRN PO MILD - MODERATE CONSTIPATION 04/09/17 13:45 04/09/17 22:15 Sennosides (Senokot) 17.2 mg Q12H PRN PO MODERATE - SEVERE CONSTIPATION 04/09/17 13:45 04/12/17 09:27 Lactulose (Lactulose Liq) 30 ml DAILY PRN PO SEVERE CONSITIPATION 04/09/17 13:45 04/09/17 19:46 Enoxaparin Sodium 30 mg 30 mg Q24H SQ 04/09/17 15:00 Hold 04/10/17 16:45 Piperacillin Sod/ Tazobactam Sod (Zosyn 3.375 Gm Premix) 50 ml @ 100 mls/hr Q6H IV 04/10/17 00:00 04/13/17 05:45 Chlorhexidine Gluconate (Chlorhexidine 2% Cloth) 3 pack DAILY@04 TOPICAL 04/11/17 04:00 04/15/17 04:01 04/13/17 01:12 Pantoprazole Sodium (Protonix Inj) 40 mg Q24H IV PUSH 04/10/17 10:45 04/12/17 09:27 Insulin Human Regular (NovoLIN R SUPPLEMENTAL SCALE) 1 Q6H SQ 04/10/17 11:15 04/13/17 05:15 Hydrocortisone Sodium Succinate 100 mg 100 mg Q8HR IV PUSH 04/11/17 01:30 04/13/17 05:43 Sodium Phosphate/ Sodium Chloride (Sodium Phosphate Inj/NS 250 ml Inj) 250 ml @ 42 mls/hr UNSCH PRN IV For Phosphorus < 2.5 mg/dL 04/12/17 07:30 04/12/17 09:28 Carvedilol (Coreg) 3.125 mg Q12HR PO 04/12/17 21:00 04/13/17 08:17 Objective Remarks GENERAL: Elderly male, sitting up in bed in nad. SKIN: Warm and dry. HEAD: Normocephalic. EYES: No injection or drainage. NECK: Supple, trachea midline. CARDIOVASCULAR: +S1/S2, tachy. telemetry showing bigeminy with PVC's RESPIRATORY: occasional wheeze. diminished at bases. On 5L O2 via NC GASTROINTESTINAL: Abdomen soft, non-tender, nondistended. EXTREMITIES: No cyanosis NEUROLOGICAL: No obvious focal deficit. Awake, alert, and oriented x3. Assessment/Plan Problem List: (1) Normocytic anemia Status: Acute Plan: --Anemia studies show anemia of chronic inflammation with elevated ferritin. --Serum iron is low and iron saturation is also somewhat low. - oral iron - no evidence of hemolysis. Haptoglobin normal (2) Bony metastasis Status: Acute Plan: --PSA levels pending. CA19-9 WNL --CT guided biopsy of iliac crest once more stable --CT ab/pelvis shows widespread bony metastatic disease (3) Thrombocytopenia Status: Acute Plan: --likely secondary to sepsis, now improving. --monitor, no transfusion necessary at present. (4) Transaminitis Status: Acute Plan: --Transaminitis and hyperbilirubinemia --bilirubin continues steady rise --HIDA scan shows possible biliary obstruction --Liver US, 04/09: + cholelithiasis and echogenic liver compatible with fatty infiltration or hepatocellular disease. (5) Malnutrition Status: Acute Plan: --Malnutrition and hypoalbuminemia with an albumin of 2.1. --?cancer cachexia --[employer] following Assessment 81-year-old male with past medical history of hypertension, coronary artery disease, congestive heart failure who presents to the emergency room with a two to three week history of anorexia, fatigue, and significant weight loss of 40 pounds who is now admitted to the ICU for sepsis and hypotension. 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 Plan 1. await PSA 2. consult IR for biopsy of bony lesion once more stable. 3. monitor bilirubin 4. monitor CBC Attending Statement The exam, history, and the medical decision-making described in the above note were completed with the assistance of the mid-level provider. I reviewed and agree with the findings presented. I attest that I had a [id number] encounter with the patient on the same day, and personally performed and documented my assessment and findings in the medical record Will ask IR for biopsy in AM NPO after midnight. Bibiana Colin April 13, 2017 10:52 Sean Curry MD April 13, 2017 23:24
[2017-04-13 12:27] LABS: ALPHA 1 GLOBULIN 0.37 GM/DL (0.11-0.29); ALPHA 2 GLOBULIN 0.88 GM/DL (0.22-1.00); BETA GLOBULINS (SPE) 0.57 GM/DL (0.53-1.03)
--- NOTE | 2017-04-13 12:49 | HHI.GIFU ---
Subjective Remarks Still asymptomatic and more awake today Objective Vitals I&O Vital Signs Date Time Temp Pulse Resp B/P Pulse Ox O2 Delivery O2 Flow Rate FiO2 04/13/17 12:00 97.6 110 33 118/59 91 04/13/17 12:00 110 04/13/17 10:44 91 Nasal Cannula 5.00 04/13/17 10:00 106 04/13/17 08:00 105 04/13/17 08:00 97.8 105 21 129/100 96 04/13/17 06:00 105 04/13/17 04:00 96.3 99 20 95 04/13/17 04:00 105 04/13/17 02:00 97 04/13/17 00:00 97 04/13/17 00:00 97.1 100 24 114/63 97 04/12/17 23:17 22 04/12/17 22:00 104 04/12/17 21:11 92 Nasal Cannula 5.00 04/12/17 20:00 97.4 112 28 120/57 92 04/12/17 20:00 112 04/12/17 18:00 113 04/12/17 18:00 113 24 119/72 89 04/12/17 17:00 107 04/12/17 17:00 107 25 106/77 91 04/12/17 16:00 105 04/12/17 16:00 97.8 107 24 117/74 90 04/12/17 14:00 101 04/12/17 13:00 118 I/O 04/12/17 04/12/17 04/12/17 04/13/17 04/13/17 04/13/17 07:00 15:00 23:00 07:00 15:00 23:00 Intake Total 824 ml 1541 ml 591 ml 510 ml Output Total 240 ml 1550 ml 1500 ml 2000 ml Balance 584 ml -9 ml -909 ml -1490 ml Intake Oral 200 ml 480 ml 240 ml 180 ml IV Total 624 ml 1061 ml 351 ml 330 ml Output Urine Total 240 ml 1550 ml 1500 ml 2000 ml Stool Total 0 ml 0 ml # Bowel Movements 0 0 Laboratory Laboratory Tests Test 04/12/17 04/13/17 20:30 05:30 Phosphorus Level 1.9 1.5 Alkaline Phosphatase 2039 2166 White Blood Count 5.6 Red Blood Count 3.14 Hemoglobin 8.6 Hematocrit 25.4 Mean Corpuscular Volume 81.1 Mean Corpuscular Hemoglobin 27.5 Mean Corpuscular Hemoglobin 34.0 Concent Red Cell Distribution Width 16.3 Platelet Count 61 Mean Platelet Volume 9.3 Neutrophils (%) (Auto) 86.8 Lymphocytes (%) (Auto) 9.0 Monocytes (%) (Auto) 3.8 Eosinophils (%) (Auto) 0.2 Basophils (%) (Auto) 0.2 Neutrophils # (Auto) 4.9 Lymphocytes # (Auto) 0.5 Monocytes # (Auto) 0.2 Eosinophils # (Auto) 0.0 Basophils # (Auto) 0.0 CBC Comment AUTO DIFF Differential Total Cells 100 Counted Neutrophils % (Manual) 64 Band Neutrophils % 15 Lymphocytes % 11 Monocytes % 6 Eosinophils % 1 Basophils % 1 Neutrophils # (Manual) 4.5 Metamyelocytes 2 Nucleated Red Blood Cells 2 Differential Comment FINAL DIFF MANUAL Platelet Estimate LOW Platelet Morphology Comment NORMAL Ovalocytes 1+ Acanthocytes OCC Prothrombin Time 12.6 Prothromb Time International 1.1 Ratio Fibrinogen 600 Sodium Level 142 Potassium Level 3.6 Chloride Level 110 Carbon Dioxide Level 22.0 Anion Gap 10 Blood Urea Nitrogen 17 Creatinine 0.99 Estimat Glomerular Filtration 73 Rate Random Glucose 191 Calcium Level 8.3 Magnesium Level 1.9 Iron Level 155 Total Iron Binding Capacity 171 Percent Iron Saturation 90.7 Transferrin 122 Total Bilirubin 6.7 Aspartate Amino Transf 142 (AST/SGOT) Alanine Aminotransferase 108 (ALT/SGPT) Total Protein 4.9 Albumin 1.9 Vitamin B12 Level 764 Date/Time Procedure Status Source Growth 04/10/17 00:15 Aerobic Blood Culture - Preliminary Resulted Blood Peripheral NO GROWTH IN 3 DAYS 04/10/17 00:15 Anaerobic Blood Culture - Preliminary Resulted Blood Peripheral NO GROWTH IN 3 DAYS Physical Exam HEENT: Cachectic CHEST: Chest is clear to auscultation and percussion. CARDIAC: Regular rate and rhythm with no murmur gallop or rubs. ABDOMEN: Soft, nondistended, nontender; no hepatosplenomegaly; bowel sounds are present in all four quadrants. EXTREMITIES: No clubbing, cyanosis, or edema. Assessment and Plan Plan ASSESSMENT: - Bone mets and unknown primary, asymptomatic. - Elevated LFTs. , likely hypoperfusion related (Hepatocellular insult), HIDA scan results noted - Weight loss and poor appetite, - Possible sepsis/lactic acidosis/hypotension/tachycardia, etiology unclear. Pt is on Zosyn and Levaquin. No fever or elevated WBC count. Management per CCM. - Diabetes mellitus, CHF with reported EF 30%. Management per attending. PLAN: - Will obtain delay images results and possible obtaining MRCP - Supportive care - BP management per CCM - Monitor LFTs closely - Check LETI, ASMA, AMA, Hepatitis panel, Iron studies, Ferritin, Ceruloplasmin, [id number] - Further recommendations as the case develops Thea Heredia MD April 13, 2017 12:49
[2017-04-13] MEDS: SODIUM PHOSPHATE INJ 30 MMOL in SODIUM CHLOR 0.9% 250 ML INJ 240 ML IV PRN (19:33)
[2017-04-14] VITALS (13 sets, daily range): BP systolic 102–141; BP diastolic 60–86; PULSE 105–120; RESP 18–38; TEMP 96.8–98; O2SAT 91–95
[2017-04-14 03:34] LABS: AUTOMATED NEUTROPHIL # 7.3 TH/MM3 (1.8-7.7); BASOPHIL % 0.1 % (0.0-2.0); EOSINOPHIL % 0.3 % (0.0-4.0); MEAN CELL VOLUME 81.3 FL (80.0-100.0); MEAN CORPUSCULAR HEMOGLOBIN 27.4 PG (27.0-34.0); MEAN CORPUSCULAR HGB CONC 33.7 % (32.0-36.0); MONO % 5.6 % (0.0-8.0); PLATELET COUNT 59 TH/MM3 (150-450); RED BLOOD COUNT 3.32 MIL/MM3 (4.50-5.90); RED CELL DISTRIBUTION WIDTH 16.1 % (11.6-17.2); WHITE BLOOD COUNT 8.8 TH/MM3 (4.0-11.0)
[2017-04-14 03:43] LABS: HEMO FLAGS AUTO DIFF
[2017-04-14 04:21] LABS: ALT (GPT) 124 U/L (12-78); ANION GAP 9 MEQ/L (5-15); AST (GOT) 147 U/L (15-37); BANDS 7 % (0-6); BICARBONATE 25.9 MEQ/L (21.0-32.0); BLOOD UREA NITROGEN 19 MG/DL (7-18); CHLORIDE 120 MEQ/L (98-107); CORRECTED NUCLEATED RBC 8 /100 WBC (0-0); GLOMERULAR FILTRATION RATE 72 ML/MIN (>89); MYELOCYTES 2 % (0-0); NEUTROPHIL # MANUAL DIFF 7.5 TH/MM3 (1.8-7.7); OVALOCYTES 1+ (NORMAL); PLATELET ESTIMATE SMEAR LOW (NORMAL); PLATELET MORPHOLOGY NORMAL (NORMAL); POLYS (SEG NEUTROPHILS) 76 % (16-70); POTASSIUM 3.2 MEQ/L (3.5-5.1); SCAN/DIFF FINAL DIFF MANUAL; SODIUM (NA) 155 MEQ/L (136-145); TOTAL BILIRUBIN ADULT 4.5 MG/DL (0.2-1.0); WBC DIFF SAMPLE 100
[2017-04-14] MEDS: INSULIN NovoLIN REGULAR SUPPLEMENTAL SCALE SQ SCH ×4 (05:15→23:15)
[2017-04-14] MEDS: POTASSIUM CHLOR 40 MEQ PREMIX 100 ML IV-CENTRAL PRN (05:33)
[2017-04-14] MEDS: HYDROCORTISONE SOD SUCCINATE 100 MG VIAL IV PUSH SCH ×3 (05:33→21:06)
[2017-04-14 05:44] LABS: ALKALINE PHOSPHATASE GREATER THAN 2330 U/L (45-117)
[2017-04-14] MEDS: PIPERACIL-TAZO 3.375 GM PREMIX 50 ML IV SCH ×3 (05:45→18:19)
[2017-04-14] MEDS: SODIUM CHLORIDE 0.9% FLUSH 10 ML FLUSH IV FLUSH SCH ×2 (08:22→21:07)
[2017-04-14] MEDS: PANTOPRAZOLE SODIUM 40 MG VIAL IV PUSH SCH (08:23)
[2017-04-14] MEDS: ASPIRIN EC 81 MG TABEC PO SCH (08:23)
[2017-04-14] MEDS: CARVEDILOL 3.125 MG TAB PO SCH ×2 (08:23→21:05)
[2017-04-14] MEDS: DOCUSATE SODIUM 50 MG/SENNA 8.6 MG TAB PO SCH ×2 (08:23→21:00)
[2017-04-14] MEDS: MULTIVITAMINS/MINERALS THERAPEUTIC TAB PO SCH (08:23)
[2017-04-14] MEDS ORDERED: GLYCERIN ADULT 2 GM SUPP RECTAL ONE (09:30)
[2017-04-14] MEDS: POLYETHYLENE GLYCOL 17 GM PKG PO SCH ×2 (09:30→21:00)
--- NOTE | 2017-04-14 09:46 | HHI.CCPN ---
Subjective Remarks/Hospital Course Frail, elderly man admitted earlier today with dehydration and general fatigue, recent weight loss. Has developed sustained tachycardia to 130s with increased O2 requirements. Now with worsening hypotension requiring vasopressor support. 04/10 Patient is on Levophed 23 mics. Afebrile. Denies any CP/SOB, N/V abdominal pain 04/11 Patient is on Neosyn and Vasopressin. On 5L oxygen. CT abd/pelvis showed bony mets unclear primary. Afebrile. 04/12 No acute events overnight. Patient is off Neosyn remains on Vasopressin. Afebrile. 04/13 No events overnight. Off all pressors. Afebrile. Subjective 04/14: Off all vasopressors. Hemodynamically stable. Plan for bone biopsy right iliac crest today. Noted PSA elevated. On 6 L nasal cannula. Objective Vital Signs Date Time Temp Pulse Resp B/P Pulse Ox O2 Delivery O2 Flow Rate FiO2 04/14/17 07:59 94 Nasal Cannula 6.00 04/14/17 06:00 106 04/14/17 04:00 97.1 18 141/68 Intake and Output 04/13/17 04/13/17 04/14/17 08:00 16:00 00:00 Intake Total 510 ml 1420 ml 856 ml Output Total 2000 ml 2950 ml 2400 ml Balance -1490 ml -1530 ml -1544 ml Result Diagram: 04/14/17 0300 04/14/17 0300 Other Results Microbiology Date/Time Procedure Status Source Growth 04/10/17 00:15 Aerobic Blood Culture - Preliminary Resulted Blood Peripheral NO GROWTH IN 3 DAYS 04/10/17 00:15 Anaerobic Blood Culture - Preliminary Resulted Blood Peripheral NO GROWTH IN 3 DAYS Imaging Last Impressions Hepatobiliary Scan Nuclear Medicine 04/12/17 0000 Signed Impressions: Service Date/Time: Wednesday, April 12, 2017 12:54 - CONCLUSION: No activity within the biliary system or gallbladder at 2 hours. The findings suggest biliary obstruction or hepatocellular dysfunction. Cystic duct patency cannot be assessed without activity in the biliary system. Delayed imaging may be helpful for further evaluation of this patient. Esteban Murphy MD ADDENDUM: On 24 hour delayed scanning, again no activity is identified in the GI tract. No significant activity is present in the biliary tree. Finding would be consistent with severe hepatocellular dysfunction and cholestatic physiology versus high-grade biliary obstruction. Cristobal Cárdenas MD Chest X-Ray 04/10/17 0000 Signed Impressions: Service Date/Time: Monday, April 10, 2017 16:10 - CONCLUSION: Central line in good position. Kartik Santiago MD FACR Chest CT 04/10/17 0000 Signed Impressions: Service Date/Time: Monday, April 10, 2017 18:39 - CONCLUSION: Minimal bibasilar parenchymal changes are evident. There is no evidence for a primary carcinoma of the lung. There is mild dilatation of the ascending aorta. Moderate vascular calcifications are noted. There is no pericardial effusion. Review of bone windows reveals what looks like widespread sclerotic metastatic disease. This could be biopsied percutaneously for diagnosis. Prostate would be the most likely diagnosis to cause this. Kartik Santiago MD FACR Abdomen/Pelvis CT 04/10/17 0000 Signed Impressions: Service Date/Time: Monday, April 10, 2017 18:39 - CONCLUSION: 1. 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 The right iliac crest could easily be biopsied percutaneously for diagnosis. 2. Prominent gallbladder with gallstones. 3. Site of primary is not identified. 4. There is no evidence for metastatic disease to the liver. Kartik Santiago MD FACR Liver Ultrasound 04/09/17 0000 Signed Impressions: Service Date/Time: Sunday, April 09, 2017 14:35 - CONCLUSION: 1. Cholelithiasis. 2. Echogenic liver compatible with fatty infiltration or hepatocellular disease. Alexandru Souza MD Objective Remarks GENERAL: 81-year-old male, appears stated age critically ill currently lying in bed in no acute distress SKIN: Warm and dry. HEAD: Normocephalic. EYES: Pupils are about 3 mm bilaterally and reactive. No scleral icterus. No injection or drainage. NECK: Supple, trachea midline. No JVD or lymphadenopathy. CARDIOVASCULAR: RRR. S1, S2. No S4. No murmur RESPIRATORY: Breath sounds equal bilaterally. No accessory muscle use. GASTROINTESTINAL: Abdomen soft, non-tender, nondistended. Specifically no right upper quadrant tenderness/negative Wyatt sign. Hypoactive bowel sounds. MUSCULOSKELETAL: No significant peripheral BACK: Back is tender to bony spinous palpation Neuro: Awake and alert. Strength is equal symmetric. Normal sensation. Vascular Central Line Catheter: Yes Assessment to: Continue Date of Insertion: April 10, 2017 Line: Central Venous Catheter Side: Right Location: Internal, Jugular A/P Assessment and Plan Neuro/Psych: CV: Chronic systolic heart failure baseline ejection fraction 30% currently 45 Nonsustained V. tach - not a candidate for defibrillator secondary to likely metastatic cancer Left bundle branch block Coronary artery disease Hypertension Dyslipidemia Evaluated by Dr. Monte. Recommended beta thuy once stable. Currently in Coreg 3.125 mg twice a day.Home medication Holding Vasotec 10 mg by mouth daily for hypertension. Echocardiogram 03/31 revealed EF 45%. Decreased systolic function. Septal dyssynchrony secondary to left bundle branch block. Mild TR. Currently holding Pravachol 80 mg a night due to elevated transaminases. On Zocor 40 mg a night at home. Continue baby aspirin 81 mg by mouth daily Decrease hydrocortisone 50 every 8. Wean off for 1 week total therapy Resp: Acute respiratory insufficiency Nasal cannula to maintain saturations greater than equal to 92% Incentive spirometry while awake As needed bronchodilator therapy GI: Transaminitis Bilirubin decreased from 6-4.5. CT abdomen/pelvis revealed cholelithiasis. Right renal cyst 4 mm. Bony metastases likely/hypolucency HIDA scan 24 hours revealed no uptake in the gallbladder indicative HCD with cholestasis allergy versus ADILIA MRCP ordered. Followed by GI Hepatitis panel negative : [place] if indicated for accurate I's and O's in a critically ill patient Endo: Diabetes mellitus Low TSH Sliding-scale to maintain euglycemia/medium regimen. Holding metformin 1000 mg by mouth twice a day/home medication TSH was 0.3 on admission. Check free T4/T3 Currently on sliding scale insulin. 19 units past 24 hours Renal: Acute kidney injury likely secondary to renal hypoperfusion to sepsis resolving Creatinine currently within normal limits Accurate I's and O's Monitor urine output Heme: Normocytic anemia Thrombocytopenia Elevated PSA For bone biopsy today the IR Peripheral smear pending PSA was elevated to 53.6. Free PSA was greater than 18. Total PSA was 551. ID: Severe sepsis Pertinent cultures 04/10 - blood cultures 2 - no growth Continue Zosyn. Followed by Dr. Vogt/ ID FEN: Hypophosphatemia Hypokalemia - possibly dilutional Hypernatremia possibly contamination Recheck BMP now. Patient admitted with hyponatremia. Was receiving sodium phosphorus during lab draw MSK: Low back pain likely secondary to metastatic disease PT evaluate and treat Access - Right IJ CVL placed 5/[address] Palmer Prophylaxis - GI - Protonix - DVT - SCD/Lovenox on hold pending bone biopsy Level 3 Edwin Carpio MD April 14, 2017 09:46
[2017-04-14] MEDS: LACTULOSE SYRUP 20 GM/30 ML CUP PO SCH ×3 (13:00→21:00)
[2017-04-14 14:46] LABS: FREE T3 1.14 PG/ML (2.18-3.98); FREE T4 0.7 NG/DL (0.76-1.46)
--- NOTE | 2017-04-14 16:17 | HHI.GIFU ---
Subjective Remarks Pt in no apparent distress, about to be transported to [facility]. Denies pain, n/v. +BM (Lara Dodson [facility]) Objective Vitals I&O Vital Signs Date Time Temp Pulse Resp B/P Pulse Ox O2 Delivery O2 Flow Rate FiO2 04/14/17 12:00 97.5 109 38 122/72 94 04/14/17 12:00 109 04/14/17 10:00 115 04/14/17 08:00 110 04/14/17 08:00 97.5 110 28 126/86 92 04/14/17 07:59 94 Nasal Cannula 6.00 04/14/17 06:00 106 04/14/17 04:00 108 04/14/17 04:00 97.1 108 18 141/68 95 04/14/17 02:00 105 04/14/17 00:00 96.8 106 23 102/60 91 04/14/17 00:00 105 04/13/17 22:00 109 04/13/17 21:20 92 Nasal Cannula 6.00 04/13/17 20:00 97.4 113 26 124/63 91 04/13/17 20:00 113 04/13/17 18:00 111 I/O 04/13/17 04/13/17 04/13/17 04/14/17 04/14/17 04/14/17 07:00 15:00 23:00 07:00 15:00 23:00 Intake Total 510 ml 1420 ml 856 ml 120 ml Output Total 2000 ml 2950 ml 2400 ml 2500 ml Balance -1490 ml -1530 ml -1544 ml -2380 ml Intake Oral 180 ml 1000 ml 480 ml 0 ml IV Total 330 ml 420 ml 376 ml 120 ml Output Urine Total 2000 ml 2950 ml 2400 ml 2500 ml Stool Total 0 ml # Bowel Movements 0 0 0 Laboratory Laboratory Tests Test 04/14/17 04/14/17 04/14/17 00:10 03:00 13:50 Phosphorus Level 1.9 2.0 White Blood Count 8.8 Red Blood Count 3.32 Hemoglobin 9.1 Hematocrit 27.0 Mean Corpuscular Volume 81.3 Mean Corpuscular Hemoglobin 27.4 Mean Corpuscular Hemoglobin 33.7 Concent Red Cell Distribution Width 16.1 Platelet Count 59 Mean Platelet Volume 8.9 Neutrophils (%) (Auto) 83.0 Lymphocytes (%) (Auto) 11.0 Monocytes (%) (Auto) 5.6 Eosinophils (%) (Auto) 0.3 Basophils (%) (Auto) 0.1 Neutrophils # (Auto) 7.3 Lymphocytes # (Auto) 1.0 Monocytes # (Auto) 0.5 Eosinophils # (Auto) 0.0 Basophils # (Auto) 0.0 CBC Comment AUTO DIFF Differential Total Cells 100 Counted Neutrophils % (Manual) 76 Band Neutrophils % 7 Lymphocytes % 11 Monocytes % 4 Neutrophils # (Manual) 7.5 Myelocytes 2 Nucleated Red Blood Cells 8 Differential Comment FINAL DIFF MANUAL Platelet Estimate LOW Platelet Morphology Comment NORMAL Ovalocytes 1+ Sodium Level 155 Potassium Level 3.2 Chloride Level 120 Carbon Dioxide Level 25.9 Anion Gap 9 Blood Urea Nitrogen 19 Creatinine 1.00 Estimat Glomerular Filtration 72 Rate Random Glucose 139 Calcium Level 8.0 Magnesium Level 2.0 Total Bilirubin 4.5 Aspartate Amino Transf 147 (AST/SGOT) Alanine Aminotransferase 124 (ALT/SGPT) Alkaline Phosphatase GREATER THAN 2330 Total Protein 5.1 Albumin 1.9 Free Thyroxine 0.70 Free Triiodothyronine (T3) 1.14 pg/dL Date/Time Procedure Status Source Growth 04/10/17 00:15 Aerobic Blood Culture - Preliminary Resulted Blood Peripheral NO GROWTH IN 4 DAYS 04/10/17 00:15 Anaerobic Blood Culture - Preliminary Resulted Blood Peripheral NO GROWTH IN 4 DAYS Imaging Last Impressions Hepatobiliary Scan Nuclear Medicine 04/12/17 0000 Signed Impressions: Service Date/Time: Wednesday, April 12, 2017 12:54 - CONCLUSION: No activity within the biliary system or gallbladder at 2 hours. The findings suggest biliary obstruction or hepatocellular dysfunction. Cystic duct patency cannot be assessed without activity in the biliary system. Delayed imaging may be helpful for further evaluation of this patient. Esteban Murphy MD ADDENDUM: On 24 hour delayed scanning, again no activity is identified in the GI tract. No significant activity is present in the biliary tree. Finding would be consistent with severe hepatocellular dysfunction and cholestatic physiology versus high-grade biliary obstruction. Cristobal Cárdenas MD Chest X-Ray 04/10/17 0000 Signed Impressions: Service Date/Time: Monday, April 10, 2017 16:10 - CONCLUSION: Central line in good position. Kartik Santiago MD FACR Chest CT 04/10/17 0000 Signed Impressions: Service Date/Time: Monday, April 10, 2017 18:39 - CONCLUSION: Minimal bibasilar parenchymal changes are evident. There is no evidence for a primary carcinoma of the lung. There is mild dilatation of the ascending aorta. Moderate vascular calcifications are noted. There is no pericardial effusion. Review of bone windows reveals what looks like widespread sclerotic metastatic disease. This could be biopsied percutaneously for diagnosis. Prostate would be the most likely diagnosis to cause this. Kartik Santiago MD FACR Abdomen/Pelvis CT 04/10/17 0000 Signed Impressions: Service Date/Time: Monday, April 10, 2017 18:39 - CONCLUSION: 1. 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 The right iliac crest could easily be biopsied percutaneously for diagnosis. 2. Prominent gallbladder with gallstones. 3. Site of primary is not identified. 4. There is no evidence for metastatic disease to the liver. Kartik Santiago MD FACR Liver Ultrasound 04/09/17 0000 Signed Impressions: Service Date/Time: Sunday, April 09, 2017 14:35 - CONCLUSION: 1. Cholelithiasis. 2. Echogenic liver compatible with fatty infiltration or hepatocellular disease. Alexandru Souza MD Physical Exam HEENT: Cachectic CHEST: Chest is clear to auscultation and percussion. CARDIAC: Regular rate and rhythm with no murmur gallop or rubs. ABDOMEN: Soft, nondistended, nontender; no hepatosplenomegaly; bowel sounds are present in all four quadrants. EXTREMITIES: No clubbing, cyanosis, or edema. (Lara Dodson) Assessment and Plan Plan ASSESSMENT: - Bone mets and unknown primary, asymptomatic. - Elevated LFTs. , likely hypoperfusion related (Hepatocellular insult), HIDA scan results noted. ASMA neg. Hep neg. MRCP pending - Weight loss and poor appetite, - Possible sepsis/lactic acidosis/hypotension/tachycardia, etiology unclear. Pt is on Zosyn and Levaquin. No fever or elevated WBC count. Management per [facility]. - Diabetes mellitus, CHF with reported EF 30%. Management per attending. PLAN: - await MRCP - Supportive care - BP management per CCM - Monitor LFTs closely - await rest of liver w/u - Further recommendations as the case develops (Lara Dodson) Physician Comments Likely Hepatocellular cause secondary to ischemia, will check MRCP for confirmation and to role out biliary disorder. Will follow up with you. (Thea Heredia MD) Lara Dodson April 14, 2017 16:17 Thea Heredia MD Apr 15, 2017 07:01
--- NOTE | 2017-04-14 16:20 | RADRPT ---
EXAM DATE/TIME: 04/14/2017 14:10 [facility] COMPARISON: CT ABDOMEN & PELVIS W/O CONTRAST, April 10, 2017, 18:39. INDICATIONS : Abdominal pain. 40 pound weight loss in the last 2 weeks. MEDICAL HISTORY : Congestive heart failure. Diabetes mellitus type 2. SURGICAL HISTORY : None. ENCOUNTER: Subsequent ACUITY: 4-6 days PAIN SCORE: 3/10 LOCATION: upper quadrant abdomen TECHNIQUE: Multiplanar, multisequence magnetic resonance imaging of the abdomen was performed. High-resolution 3D dataset was utilized to reconstruct maximum-intensity projection (MIP) images. FINDINGS: INTRAHEPATIC BILE DUCTS: Within normal limits. No significant anatomical variant is present. EXTRAHEPATIC BILE DUCTS: The common bile duct measures 7 mm proximally and 6 mm distally. No stone or filling defect is identi fied. GALLBLADDER: Multiple gallstones identified including multiple within the gallbladder neck. Focal pericholecystic fluid adjacent to the gallbladder fundus. Diffuse nonspecific gallbladder wall thickening measuring 4 -5 mm. LIVER: Normal size and signal intensity. No concerning liver lesion is identified on this non-contrast exam. PANCREAS: The main pancreatic duct is normal in size. Pancreatic divisum noted Signal intensity is within león l limits. No mass is visualized on this non-contrast exam. OTHER: 4.7 cm posterior right renal mass has signal characteristics indicating a cyst. Kidneys otherwise wit hin normal limits. Small amount of ascites in the upper quadrants. Small bilateral pleural effusions. No enlarged lymph nodes. CONCLUSION: 1. Cholelithiasis. Nonspecific gallbladder wall thickening and pericholecystic fluid. Findings can be seen with acute cholecystitis. 2. Common duct is within normal limits for age. 3. Right renal cyst. 4. Small amount of ascites and small bilateral pleural effusions. Robby Geiger MD on April 14, 2017 at 16:11 Board Certified Radiologist. This report was verified electronically.
[2017-04-14] MEDS ORDERED: MIDAZOLAM HCL 5 MG/5 ML VIAL IV ONE (16:30)
[2017-04-14] MEDS ORDERED: fentaNYL CITRATE 250 MCG/5 ML AMP IV ONE (16:30)
--- NOTE | 2017-04-14 17:29 | RADRPT ---
EXAM DATE/TIME: 04/14/2017 16:22 [facility] COMPARISON: No previous studies available for comparison. INDICATIONS : Lesions seen on cat scan in pelvis SEDATION TIME: 30 minutes BIOPSY SITE: Right ilium MEDICATION(S): 1.) 1 mg midazolam (Versed) IV 2.) 50 mcg fentanyl (Sublimaze) IV DEVICE(S): 1.) 11 gauge On-Control needle MEDICAL HISTORY : Cardiovascular disease. Congestive heart failure. Diabetes SURGICAL HISTORY : Hernia repair ENCOUNTER: Initial ACUITY: 1 day PAIN SCORE: 0/10 LOCATION: Right Ilium A total of two core specimen(s) were obtained and sent to the laboratory for pathologic evaluation. PROCEDURE: 1. CT guided Ilium RIGHT biopsy. Prior to the procedure informed consent was obtained. Any appropriate prior imaging studies were rev iewed. Using automated exposure control and adjustment of the mA and/or kV according to patient size, radiat ion dose was kept as low as reasonably achievable to obtain optimal diagnostic quality images. The site was prepped in a sterile fashion. Full sterile technique was used, including cap, mask, rickie rile gloves and gown and a large sterile sheet. Hand hygiene and 2% chlorhexidine and/or betadine/al cohol prep was utilized per protocol for cutaneous antisepsis. The skin and subcutaneous tissues wer e infiltrated with local anesthetic solution. With CT guidance the previously identified target was localized. Biopsy was performed using the presc ribed needle as above. Adequate hemostasis was obtained with compression at the puncture site. Follow-up CT scan reveals no hemorrhage. The patient tolerated the procedure well and there were no complications. The patient was returned to the Radiology Outpatient Unit in stable condition. CONCLUSION: Uncomplicated CT guided biopsy. Kartik Santiago MD FACR on April 14, 2017 at 17:26 Board Certified Radiologist. This report was verified electronically.
[2017-04-14 17:48] LABS: ANA SCREEN NEG (NEG)
[2017-04-14] MEDS ORDERED: LIDOCAINE HCL 1% 30 ML VIAL SQ ONE (18:25)
[2017-04-14 18:32] LABS: BICARBONATE 20.6 MEQ/L (21.0-32.0)
[2017-04-14 19:02] LABS: BICARBONATE 22.6 MEQ/L (21.0-32.0); POTASSIUM 4.2 MEQ/L (3.5-5.1)
[2017-04-14] MEDS ORDERED: GLYCERIN ADULT 2 GM SUPP RECTAL PRN (21:00)
[2017-04-14] MEDS: SODIUM CHLORIDE 23.4% INJ 38.5 MEQ in WATER STERILE FOR INJ 1,000 ML IV SCH (21:07)
[2017-04-15] VITALS (17 sets, daily range): BP systolic 83–145; BP diastolic 51–94; PULSE 80–164; RESP 22–33; TEMP 97.3–98.2; O2SAT 46–100
[2017-04-15] MEDS: PIPERACIL-TAZO 3.375 GM PREMIX 50 ML IV SCH ×5 (01:12→23:04)
[2017-04-15 01:23] LABS: ALT (GPT) 90 U/L (12-78); ANION GAP 11 MEQ/L (5-15); AST (GOT) 66 U/L (15-37); BICARBONATE 22.3 MEQ/L (21.0-32.0); BLOOD UREA NITROGEN 30 MG/DL (7-18); CHLORIDE 118 MEQ/L (98-107); GLOMERULAR FILTRATION RATE 45 ML/MIN (>89); MAGNESIUM 1.8 MG/DL (1.5-2.5); POTASSIUM 4.2 MEQ/L (3.5-5.1); SODIUM (NA) 151 MEQ/L (136-145)
[2017-04-15 01:36] LABS: ALKALINE PHOSPHATASE 2224 U/L (45-117); TOTAL BILIRUBIN ADULT 2.8 MG/DL (0.2-1.0)
[2017-04-15] MEDS: CHLORHEXIDINE GLUCONATE 2 % 1 PACK (2 CLOTHS)(taper/protocol) TOPICAL SCH (04:00)
[2017-04-15] MEDS: INSULIN NovoLIN REGULAR SUPPLEMENTAL SCALE SQ SCH ×4 (05:15→23:04)
[2017-04-15] MEDS: SODIUM CHLORIDE 23.4% INJ 38.5 MEQ in WATER STERILE FOR INJ 1,000 ML IV SCH (05:26)
[2017-04-15] MEDS: HYDROCORTISONE SOD SUCCINATE 100 MG VIAL IV PUSH SCH ×3 (05:27→23:04)
[2017-04-15 06:19] LABS: AUTOMATED NEUTROPHIL # 7.4 TH/MM3 (1.8-7.7); BASOPHIL % 0.3 % (0.0-2.0); EOSINOPHIL % 0.4 % (0.0-4.0); HEMATOCRIT 25.1 % (39.0-51.0); HEMO FLAGS AUTO DIFF; LYMPH % 19.6 % (9.0-44.0); MEAN CELL VOLUME 82.6 FL (80.0-100.0); MEAN CORPUSCULAR HEMOGLOBIN 27.8 PG (27.0-34.0); MEAN CORPUSCULAR HGB CONC 33.6 % (32.0-36.0); MONO % 6.4 % (0.0-8.0); NEUT % 73.3 % (16.0-70.0); PLATELET COUNT 44 TH/MM3 (150-450); RED BLOOD COUNT 3.04 MIL/MM3 (4.50-5.90); RED CELL DISTRIBUTION WIDTH 16.6 % (11.6-17.2); WHITE BLOOD COUNT 10.1 TH/MM3 (4.0-11.0)
[2017-04-15 08:19] LABS: BANDS 5 % (0-6); CORRECTED NUCLEATED RBC 14 /100 WBC (0-0); METAMYELOCYTES 2 % (0-1); MYELOCYTES 4 % (0-0); NEUTROPHIL # MANUAL DIFF 7.7 TH/MM3 (1.8-7.7); PLATELET ESTIMATE SMEAR LOW (NORMAL); POLYS (SEG NEUTROPHILS) 65 % (16-70); SCAN/DIFF FINAL DIFF MANUAL; WBC DIFF SAMPLE 100
[2017-04-15 08:20] LABS: PLATELET MORPHOLOGY NORMAL (NORMAL)
[2017-04-15] MEDS ORDERED: METOPROLOL TARTRATE 5 MG/5 ML VIAL IV PUSH ONE (08:30)
[2017-04-15] MEDS ORDERED: PHENYLEPHRINE INJ 160 MG in DEXTROSE 5% IN WATE 500 ML INJ 484 ML IV SCH ×2 (08:45)
[2017-04-15] MEDS: SODIUM CHLORIDE 0.9% FLUSH 10 ML FLUSH IV FLUSH SCH ×2 (08:45→20:48)
[2017-04-15] MEDS ORDERED: TERBUTALINE INJ 1 MG/ML AMP SQ PRN (08:45)
[2017-04-15] MEDS: LACTULOSE SYRUP 20 GM/30 ML CUP PO SCH ×4 (08:46→20:48)
[2017-04-15] MEDS: CARVEDILOL 3.125 MG TAB PO SCH (08:46)
[2017-04-15] MEDS: DOCUSATE SODIUM 50 MG/SENNA 8.6 MG TAB PO SCH ×2 (08:46→20:48)
[2017-04-15] MEDS: POLYETHYLENE GLYCOL 17 GM PKG PO SCH ×2 (08:46→20:48)
[2017-04-15] MEDS: MULTIVITAMINS/MINERALS THERAPEUTIC TAB PO SCH (08:46)
[2017-04-15] MEDS: ASPIRIN EC 81 MG TABEC PO SCH (08:46)
[2017-04-15] MEDS: DILTIAZEM INJ 125 MG in SODIUM CHLORIDE 0.9% INJ 100 ML IV SCH ×2 (09:04→16:13)
[2017-04-15 10:13] LABS: BICARBONATE 19.6 MEQ/L (21.0-32.0); MAGNESIUM 1.9 MG/DL (1.5-2.5); POTASSIUM 4.2 MEQ/L (3.5-5.1)
--- NOTE | 2017-04-15 11:27 | HHI.CCPN ---
Subjective Remarks/Hospital Course Frail, elderly man admitted earlier today with dehydration and general fatigue, recent weight loss. Has developed sustained tachycardia to 130s with increased O2 requirements. Now with worsening hypotension requiring vasopressor support. 04/10 Patient is on Levophed 23 mics. Afebrile. Denies any CP/SOB, N/V abdominal pain 04/11 Patient is on Neosyn and Vasopressin. On 5L oxygen. CT abd/pelvis showed bony mets unclear primary. Afebrile. 04/12 No acute events overnight. Patient is off Neosyn remains on Vasopressin. Afebrile. 04/13 No events overnight. Off all pressors. Afebrile. 04/14: Off all vasopressors. Hemodynamically stable. Plan for bone biopsy right iliac crest today. Noted PSA elevated. On 6 L nasal cannula. Subjective 04/15: A. fib with RVR overnight. Gave 5 mill grams Lopressor that result. Currently in Cardizem drip with Nba-Synephrine with better rate control. Platelets remain low to underlying sepsis Objective Vital Signs Date Time Temp Pulse Resp B/P Pulse Ox O2 Delivery O2 Flow Rate FiO2 04/15/17 10:00 133 04/15/17 08:00 97.6 33 125/94 82 04/14/17 20:22 Nasal Cannula 6.00 Intake and Output 04/14/17 04/14/17 04/14/17 07:59 15:59 23:59 Intake Total 120 ml 274 ml 1355 ml Output Total 2500 ml 625 ml 650 ml Balance -2380 ml -351 ml 705 ml Result Diagram: 04/15/17 0530 04/15/17 0910 Imaging Last Impressions Bone Biopsy CT 04/14/17 0600 Signed Impressions: Service Date/Time: Friday, April 14, 2017 16:22 - CONCLUSION: Uncomplicated CT guided biopsy. Kartik Santiago MD FACR Cholangiopancreatography MRI 04/14/17 0000 Signed Impressions: Service Date/Time: Friday, April 14, 2017 14:10 - CONCLUSION: 1. Cholelithiasis. Nonspecific gallbladder wall thickening and pericholecystic fluid. Findings can be seen with acute cholecystitis. 2. Common duct is within normal limits for age. 3. Right renal cyst. 4. Small amount of ascites and small bilateral pleural effusions. Robby Geiger MD Hepatobiliary Scan Nuclear Medicine 04/12/17 0000 Signed Impressions: Service Date/Time: Wednesday, April 12, 2017 12:54 - CONCLUSION: No activity within the biliary system or gallbladder at 2 hours. The findings suggest biliary obstruction or hepatocellular dysfunction. Cystic duct patency cannot be assessed without activity in the biliary system. Delayed imaging may be helpful for further evaluation of this patient. Esteban Murphy MD ADDENDUM: On 24 hour delayed scanning, again no activity is identified in the GI tract. No significant activity is present in the biliary tree. Finding would be consistent with severe hepatocellular dysfunction and cholestatic physiology versus high-grade biliary obstruction. Cristobal Cárdenas MD Chest X-Ray 04/10/17 Signed Impressions: Service Date/Time: Monday, April 10, 2017 16:10 - CONCLUSION: Central line in good position. Kartik Santiago MD FACR Chest CT 04/10/17 0000 Signed Impressions: Service Date/Time: Monday, April 10, 2017 18:39 - CONCLUSION: Minimal bibasilar parenchymal changes are evident. There is no evidence for a primary carcinoma of the lung. There is mild dilatation of the ascending aorta. Moderate vascular calcifications are noted. There is no pericardial effusion. Review of bone windows reveals what looks like widespread sclerotic metastatic disease. This could be biopsied percutaneously for diagnosis. Prostate would be the most likely diagnosis to cause this. Kartik Santiago MD FACR Abdomen/Pelvis CT 04/10/17 0000 Signed Impressions: Service Date/Time: Monday, April 10, 2017 18:39 - CONCLUSION: 1. 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 The right iliac crest could easily be biopsied percutaneously for diagnosis. 2. Prominent gallbladder with gallstones. 3. Site of primary is not identified. 4. There is no evidence for metastatic disease to the liver. Kartik Santiago MD FACR Liver Ultrasound 04/09/17 0000 Signed Impressions: Service Date/Time: Sunday, April 09, 2017 14:35 - CONCLUSION: 1. Cholelithiasis. 2. Echogenic liver compatible with fatty infiltration or hepatocellular disease. Alexandru Souza MD Objective Remarks GENERAL: 81-year-old male, appears stated age critically ill currently lying in bed in no acute distress SKIN: Warm and dry. HEAD: Normocephalic. EYES: Pupils are about 3 mm bilaterally and reactive. No scleral icterus. No injection or drainage. NECK: Supple, trachea midline. No JVD or lymphadenopathy. CARDIOVASCULAR: RRR. S1, S2. No S4. No murmur RESPIRATORY: Breath sounds equal bilaterally. No accessory muscle use. GASTROINTESTINAL: Abdomen soft, non-tender, nondistended. Specifically no right upper quadrant tenderness/negative Wyatt sign. Hypoactive bowel sounds. MUSCULOSKELETAL: No significant peripheral BACK: Back is tender to bony spinous specifically lumbar palpation Neuro: Awake and alert. Strength is equal and symmetric bilaterally. Normal sensation. Vascular Central Line Catheter: Yes Assessment to: Continue Date of Insertion: April 10, 2017 Line: Central Venous Catheter Side: Right Location: Internal, Jugular A/P Assessment and Plan Neuro/Psych: Acetaminophen for fever only CV: Chronic systolic heart failure baseline ejection fraction 30% currently 45 Nonsustained V. tach - not a candidate for defibrillator secondary to likely metastatic cancer Left bundle branch block Coronary artery disease Hypertension Dyslipidemia A. fib with RVR Evaluated by Dr. Monte. Recommended beta thuy once stable. Currently on Coreg 3.125 mg twice a day.Home medication Today, given 5 mg IV Lopressor due to A. fib with RVR. Currently on Nba- Synephrine at 40 mu./m with Cardizem drip at 15 mg hour with better rate control. Holding Vasotec 10 mg by mouth daily for hypertension and acute kidney injury. Echocardiogram 03/31 revealed EF 45%. Decreased systolic function. Septal dyssynchrony secondary to left bundle branch block. Mild TR. Currently holding Pravachol 80 mg a night due to elevated transaminases. On Zocor 40 mg a night at home. Continue baby aspirin 81 mg by mouth daily Decrease hydrocortisone 50 every 8. Initiate while severely septic. Wean off for 1 week total therapy Resp: Acute respiratory insufficiency Nasal cannula to maintain saturations greater than equal to 92% Incentive spirometry while awake As needed bronchodilator therapy Follow-up chest x-ray in a.m. 04/16 GI: Transaminitis Bilirubin decreased from 6-4.5. CT abdomen/pelvis revealed cholelithiasis. Right renal cyst 4 mm. Bony metastases likely/hypolucency HIDA scan 24 hours revealed no uptake in the gallbladder indicative HCD with cholestasis allergy versus ADILIA MRCP revealed no biliary duct obstruction process. Gallbladder wall thickening with gallstones indicative of acute cholecystitis. Followed by GI/Dr. Heredia. Await recommendations following MRCP Hepatitis panel negative : Huerta if indicated for accurate I's and O's in a critically ill patient Endo: Diabetes mellitus Low TSH Sliding-scale to maintain euglycemia/medium regimen. Holding metformin 1000 mg by mouth twice a day/home medication TSH was 0.3 on admission. Check free T4/T3 Currently on sliding scale insulin. 19 units past 24 hours Renal: Acute kidney injury likely secondary to renal hypoperfusion and sepsis Creatinine currently within normal limits Accurate I's and O's Monitor urine output Does not appear to have received IV contrast during this hospitalization Heme: Normocytic anemia Thrombocytopenia Elevated PSA For bone biopsy today the IR Peripheral smear pending PSA was elevated to 53.6. Free PSA was greater than 18. Total PSA was 551. Heparin antibody sent today 04/15 ID: Severe sepsis Pertinent cultures 04/10 - blood cultures 2 - no growth Continue Zosyn. Followed by Dr. Vogt/ ID FEN: Hypophosphatemia Hypokalemia - possibly dilutional Hypernatremia possibly contamination Recheck BMP now. Patient admitted with hyponatremia. Was receiving sodium phosphorus during lab draw MSK: Low back pain likely secondary to metastatic disease PT evaluate and treat Access - Right IJ CVL placed 04/[address] Palmer Prophylaxis - GI - Protonix - DVT - SCD/Lovenox on hold due to thrombocytopenia Level 3 Edwin Carpio MD Apr 15, 2017 11:27
[2017-04-15] MEDS: PANTOPRAZOLE SODIUM 40 MG VIAL IV PUSH SCH (12:03)
--- NOTE | 2017-04-15 12:10 | RADRPT ---
EXAM DATE/TIME: 04/15/2017 10:58 [facility] COMPARISON: CT ABDOMEN & PELVIS W/O CONTRAST, April 10, 2017, 18:39. INDICATIONS : Increased BUN/creatinine. MEDICAL HISTORY : Hypercholesterolemia. Hypertension. Abdominal pain. Diabetes. SURGICAL HISTORY : Hernia mesh. Transuretral resection. ENCOUNTER: Initial ACUITY: 1 day PAIN SCORE: 10 LOCATION: Bilateral flank MEASUREMENTS: RIGHT KIDNEY: 9.3 x 6.2 x 5.2 cm LEFT KIDNEY: 10.3 x 5.3 x 6.3 cm FINDINGS: RIGHT KIDNEY: Renal cortex is normal in thickness and echotexture. Redemonstration of anechoic cyst in the superio r pole the right kidney measuring 5.0 x 4.2 x 4.5 cm. This is similar to recent CT exam. No hydroneph rosis, stone, or mass. LEFT KIDNEY: Renal cortex is normal in thickness and echotexture. No hydronephrosis, stone, or mass. BLADDER: Decompressed secondary to Huerta catheter. CONCLUSION: 1. No sonographic evidence for renal calculi or obstructive uropathy. 2. Redemonstration of 5.0 x 4.2 x 4.5 cm cyst in the superior pole of the right kidney. Bertrand Coronel MD on April 15, 2017 at 12:04 Board Certified Radiologist. This report was verified electronically.
--- NOTE | 2017-04-15 13:24 | HHI.GIFU ---
Subjective Remarks pt resting in bed comfortably, in no apparent distress. No pain, n/v, diarrhea. Says he felt a little confused this morning. (Lara Dodson) Objective Vitals I&O Vital Signs Date Time Temp Pulse Resp B/P Pulse Ox O2 Delivery O2 Flow Rate FiO2 04/15/17 11:34 92 Nasal Cannula 4.00 04/15/17 10:00 133 04/15/17 08:00 97.6 162 33 125/94 82 04/15/17 08:00 162 04/15/17 06:00 120 04/15/17 04:00 108 04/15/17 04:00 98.2 164 25 83/56 91 04/15/17 02:00 123 04/15/17 00:00 97.3 164 26 108/59 94 04/15/17 00:00 121 04/14/17 22:00 120 04/14/17 20:22 94 Nasal Cannula 6.00 04/14/17 20:00 118 04/14/17 20:00 98.0 118 34 118/84 91 04/14/17 18:00 119 04/14/17 14:00 105 I/O 04/14/17 04/14/17 04/14/17 04/15/17 04/15/17 04/15/17 07:00 15:00 23:00 07:00 15:00 23:00 Intake Total 120 ml 274 ml 1355 ml 2420 ml Output Total 2500 ml 625 ml 650 ml 100 ml Balance -2380 ml -351 ml 705 ml 2320 ml Intake Oral 0 ml 100 ml 1065 ml 2130 ml IV Total 120 ml 174 ml 290 ml 290 ml Output Urine Total 2500 ml 625 ml 650 ml 100 ml # Bowel Movements 0 1 0 0 Laboratory Laboratory Tests Test 04/14/17 04/14/17 04/15/17 04/15/17 13:50 18:22 00:33 05:30 Sodium Level 157 155 151 Potassium Level 4.0 4.2 4.2 Chloride Level 125 123 118 Carbon Dioxide Level 20.6 22.6 22.3 Anion Gap 11 9 11 Blood Urea Nitrogen 21 24 30 Creatinine 1.04 1.25 1.49 Estimat Glomerular Filtration 69 56 45 Rate Random Glucose 191 210 309 Calcium Level 7.8 7.9 7.7 Phosphorus Level 2.3 2.3 Free Thyroxine 0.70 Free Triiodothyronine (T3) 1.14 pg/dL Magnesium Level 1.8 Total Bilirubin 2.8 Aspartate Amino Transf 66 (AST/SGOT) Alanine Aminotransferase 90 (ALT/SGPT) Alkaline Phosphatase 2224 Total Protein 4.6 Albumin 1.6 White Blood Count 10.1 Red Blood Count 3.04 Hemoglobin 8.4 Hematocrit 25.1 Mean Corpuscular Volume 82.6 Mean Corpuscular Hemoglobin 27.8 Mean Corpuscular Hemoglobin 33.6 Concent Red Cell Distribution Width 16.6 Platelet Count 44 Mean Platelet Volume 9.6 Neutrophils (%) (Auto) 73.3 Lymphocytes (%) (Auto) 19.6 Monocytes (%) (Auto) 6.4 Eosinophils (%) (Auto) 0.4 Basophils (%) (Auto) 0.3 Neutrophils # (Auto) 7.4 Lymphocytes # (Auto) 2.0 Monocytes # (Auto) 0.6 Eosinophils # (Auto) 0.0 Basophils # (Auto) 0.0 CBC Comment AUTO DIFF Differential Total Cells 100 Counted Neutrophils % (Manual) 65 Band Neutrophils % 5 Lymphocytes % 20 Monocytes % 4 Neutrophils # (Manual) 7.7 Metamyelocytes 2 Myelocytes 4 Nucleated Red Blood Cells 14 Differential Comment FINAL DIFF MANUAL Platelet Estimate LOW Platelet Morphology Comment NORMAL Test 04/15/17 09:10 Sodium Level 144 Potassium Level 4.2 Chloride Level 113 Carbon Dioxide Level 19.6 Anion Gap 11 Blood Urea Nitrogen 39 Creatinine 1.75 Estimat Glomerular Filtration 38 Rate Random Glucose 141 Lactic Acid Level 3.0 Calcium Level 8.0 Phosphorus Level 2.6 Magnesium Level 1.9 Imaging Last Impressions Renal Ultrasound 04/15/17 0000 Signed Impressions: Service Date/Time: April 10:58 - CONCLUSION: 1. No sonographic evidence for renal calculi or obstructive uropathy. 2. Redemonstration of 5.0 x 4.2 x 4.5 cm cyst in the superior pole of the right kidney. Bertrand Coronel MD Bone Biopsy CT 04/14/17 0600 Signed Impressions: Service Date/Time: Friday, April 14, 2017 16:22 - CONCLUSION: Uncomplicated CT guided biopsy. Kartik Santiago MD FACR Cholangiopancreatography MRI 04/14/17 0000 Signed Impressions: Service Date/Time: Friday, April 14, 2017 14:10 - CONCLUSION: 1. Cholelithiasis. Nonspecific gallbladder wall thickening and pericholecystic fluid. Findings can be seen with acute cholecystitis. 2. Common duct is within normal limits for age. 3. Right renal cyst. 4. Small amount of ascites and small bilateral pleural effusions. Robby Geiger MD Hepatobiliary Scan Nuclear Medicine 04/12/17 Signed Impressions: Service Date/Time: Wednesday, April 12, 2017 12:54 - CONCLUSION: No activity within the biliary system or gallbladder at 2 hours. The findings suggest biliary obstruction or hepatocellular dysfunction. Cystic duct patency cannot be assessed without activity in the biliary system. Delayed imaging may be helpful for further evaluation of this patient. Esteban Murphy MD ADDENDUM: On 24 hour delayed scanning, again no activity is identified in the GI tract. No significant activity is present in the biliary tree. Finding would be consistent with severe hepatocellular dysfunction and cholestatic physiology versus high-grade biliary obstruction. Cristobal Cárdenas MD Chest X-Ray 04/10/17 Signed Impressions: Service Date/Time: Monday, April 10, 2017 16:10 - CONCLUSION: Central line in good position. Kartik Santiago MD FACR Chest CT 04/10/17 0000 Signed Impressions: Service Date/Time: Monday, April 10, 2017 18:39 - CONCLUSION: Minimal bibasilar parenchymal changes are evident. There is no evidence for a primary carcinoma of the lung. There is mild dilatation of the ascending aorta. Moderate vascular calcifications are noted. There is no pericardial effusion. Review of bone windows reveals what looks like widespread sclerotic metastatic disease. This could be biopsied percutaneously for diagnosis. Prostate would be the most likely diagnosis to cause this. Kartik Santiago MD FACR Abdomen/Pelvis CT 04/10/17 0000 Signed Impressions: Service Date/Time: Monday, April 10, 2017 18:39 - CONCLUSION: 1. 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 The right iliac crest could easily be biopsied percutaneously for diagnosis. 2. Prominent gallbladder with gallstones. 3. Site of primary is not identified. 4. There is no evidence for metastatic disease to the liver. Kartik Santiago MD FACR Liver Ultrasound 04/09/17 0000 Signed Impressions: Service Date/Time: Sunday, April 09, 2017 14:35 - CONCLUSION: 1. Cholelithiasis. 2. Echogenic liver compatible with fatty infiltration or hepatocellular disease. Alexandru Souza MD Physical Exam HEENT: Cachectic CHEST: Chest is clear to auscultation and percussion. CARDIAC: Regular rate and rhythm with no murmur gallop or rubs. ABDOMEN: Soft, nondistended, nontender; no hepatosplenomegaly; bowel sounds are present in all four quadrants. EXTREMITIES: No clubbing, cyanosis, or edema. (Lara Dodson) Assessment and Plan Plan ASSESSMENT: - Bone mets and unknown primary, asymptomatic. - Elevated LFTs. decreasing, likely hypoperfusion related (Hepatocellular insult ), HIDA scan results noted. LETI neg, ASMA neg. Hep neg. MRCP --> Cholelithiasis. Nonspecific gallbladder wall thickening and pericholecystic fluid. Findings can be seen with acute cholecystitis. 2. Common duct is within normal limits for age. 3. Right renal cyst. 4. Small amount of ascites and small bilateral pleural effusions. - Weight loss and poor appetite, - Possible sepsis/lactic acidosis/hypotension/tachycardia, etiology unclear. Pt is on Zosyn and Levaquin. No fever or elevated WBC count. Management per CCM. - Diabetes mellitus, CHF with reported EF 30%. Management per attending. PLAN: - Supportive care - BP management per CCM - Monitor LFTs - await rest of liver w/u - Further recommendations as the case develops This pt seen by myself and Dr Heredia and this note is written on his behalf ( Lara Dodson) Physician Comments Seen and examined, MRCP negative for biliary obstruction and edema noted suggestive of cholecystitis, GS to follow. Further recommendations to follow. (Thea Heredia MD) Lara Dodson Apr 15, 2017 13:24 Thea Heredia MD Apr 15, 2017 21:55
[2017-04-15 17:08] LABS: BICARBONATE 21.3 MEQ/L (21.0-32.0); POTASSIUM 4.3 MEQ/L (3.5-5.1)
[2017-04-15] MEDS ORDERED: SODIUM CHLOR 0.9% 1000 ML INJ 1,000 ML IV ONE (17:15)
[2017-04-15 17:37] LABS: CALCIUM-PROTEIN CORRECTED 8.7 MG/DL (8.5-10.1)
--- NOTE | 2017-04-15 19:12 | HHI.IDPN ---
Subjective Subjective Remarks no pain UOP marginal still on pressors afebrile MRCP with Cholelithiasis and nonspecific gallbladder wall thickening and pericholecystic fluid. Antibiotics zosyn Allergies: Coded Allergies: No Known Allergies (Verified Allergy, Unknown, 02/04/06) Objective . Vital Signs Date Time Temp Pulse Resp B/P Pulse Ox O2 Delivery O2 Flow Rate FiO2 04/15/17 16:00 97.3 93 26 115/51 46 04/15/17 16:00 93 04/15/17 14:00 92 04/15/17 13:00 91 22 145/65 89 04/15/17 12:00 97.8 90 24 123/58 78 04/15/17 12:00 90 04/15/17 11:34 92 Nasal Cannula 6.00 04/15/17 10:00 133 04/15/17 08:00 97.6 162 33 125/94 82 04/15/17 08:00 162 04/15/17 06:00 120 04/15/17 04:00 108 04/15/17 04:00 98.2 164 25 83/56 91 04/15/17 02:00 123 04/15/17 00:00 97.3 164 26 108/59 94 04/15/17 00:00 121 04/14/17 22:00 120 04/14/17 20:22 94 Nasal Cannula 6.00 04/14/17 20:00 118 04/14/17 20:00 98.0 118 34 118/84 91 04/14/17 04/14/17 04/15/17 15:00 23:00 07:00 Intake Total 274 ml 1355 ml 2420 ml Output Total 625 ml 650 ml 100 ml Balance -351 ml 705 ml 2320 ml Intake Oral 100 ml 1065 ml 2130 ml IV Total 174 ml 290 ml 290 ml Output Urine Total 625 ml 650 ml 100 ml # Bowel Movements 1 0 0 . Laboratory Tests Test 04/14/17 04/15/17 03:00 05:30 White Blood Count 8.8 TH/MM3 10.1 TH/MM3 Red Blood Count 3.32 MIL/MM3 3.04 MIL/MM3 Hemoglobin 9.1 GM/DL 8.4 GM/DL Hematocrit 27.0 % 25.1 % Mean Corpuscular Volume 81.3 FL 82.6 FL Mean Corpuscular Hemoglobin 27.4 PG 27.8 PG Mean Corpuscular Hemoglobin 33.7 % 33.6 % Concent Red Cell Distribution Width 16.1 % 16.6 % Platelet Count 59 TH/MM3 44 TH/MM3 Mean Platelet Volume 8.9 FL 9.6 FL Neutrophils (%) (Auto) 83.0 % 73.3 % Lymphocytes (%) (Auto) 11.0 % 19.6 % Monocytes (%) (Auto) 5.6 % 6.4 % Eosinophils (%) (Auto) 0.3 % 0.4 % Basophils (%) (Auto) 0.1 % 0.3 % Neutrophils # (Auto) 7.3 TH/MM3 7.4 TH/MM3 Lymphocytes # (Auto) 1.0 TH/MM3 2.0 TH/MM3 Monocytes # (Auto) 0.5 TH/MM3 0.6 TH/MM3 Eosinophils # (Auto) 0.0 TH/MM3 0.0 TH/MM3 Basophils # (Auto) 0.0 TH/MM3 0.0 TH/MM3 CBC Comment AUTO DIFF AUTO DIFF Differential Total Cells 100 100 Counted Neutrophils % (Manual) 76 % 65 % Band Neutrophils % 7 % 5 % Lymphocytes % 11 % 20 % Monocytes % 4 % 4 % Neutrophils # (Manual) 7.5 TH/MM3 7.7 TH/MM3 Myelocytes 2 % 4 % Nucleated Red Blood Cells 8 /100 WBC 14 /100 WBC Differential Comment FINAL DIFF FINAL DIFF MANUAL MANUAL Platelet Estimate LOW LOW Platelet Morphology Comment NORMAL NORMAL Ovalocytes 1+ Metamyelocytes 2 % Laboratory Tests Test 04/14/17 04/14/17 04/14/17 04/14/17 00:10 03:00 13:50 18:22 Phosphorus Level 1.9 MG/DL 2.0 MG/DL 2.3 MG/DL Sodium Level 155 MEQ/L 157 MEQ/L 155 MEQ/L Potassium Level 3.2 MEQ/L 4.0 MEQ/L 4.2 MEQ/L Chloride Level 120 MEQ/L 125 MEQ/L 123 MEQ/L Carbon Dioxide Level 25.9 MEQ/L 20.6 MEQ/L 22.6 MEQ/L Anion Gap 9 MEQ/L 11 MEQ/L 9 MEQ/L Blood Urea Nitrogen 19 MG/DL 21 MG/DL 24 MG/DL Creatinine 1.00 MG/DL 1.04 MG/DL 1.25 MG/DL Estimat Glomerular Filtration 72 ML/MIN 69 ML/MIN 56 ML/MIN Rate Random Glucose 139 MG/DL 191 MG/DL 210 MG/DL Calcium Level 8.0 MG/DL 7.8 MG/DL 7.9 MG/DL Magnesium Level 2.0 MG/DL Total Bilirubin 4.5 MG/DL Aspartate Amino Transf 147 U/L (AST/SGOT) Alanine Aminotransferase 124 U/L (ALT/SGPT) Alkaline Phosphatase GREATER THAN 2330 U/L Total Protein 5.1 GM/DL Albumin 1.9 GM/DL Free Thyroxine 0.70 NG/DL Free Triiodothyronine (T3) 1.14 PG/ML pg/dL Test 04/15/17 04/15/17 04/15/17 00:33 09:10 16:00 Sodium Level 151 MEQ/L 144 MEQ/L 144 MEQ/L Potassium Level 4.2 MEQ/L 4.2 MEQ/L 4.3 MEQ/L Chloride Level 118 MEQ/L 113 MEQ/L 111 MEQ/L Carbon Dioxide Level 22.3 MEQ/L 19.6 MEQ/L 21.3 MEQ/L Anion Gap 11 MEQ/L 11 MEQ/L 12 MEQ/L Blood Urea Nitrogen 30 MG/DL 39 MG/DL 44 MG/DL Creatinine 1.49 MG/DL 1.75 MG/DL 1.77 MG/DL Estimat Glomerular Filtration 45 ML/MIN 38 ML/MIN 37 ML/MIN Rate Random Glucose 309 MG/DL 141 MG/DL 258 MG/DL Calcium Level 7.7 MG/DL 8.0 MG/DL 7.3 MG/DL Phosphorus Level 2.3 MG/DL 2.6 MG/DL Magnesium Level 1.8 MG/DL 1.9 MG/DL Total Bilirubin 2.8 MG/DL Aspartate Amino Transf 66 U/L (AST/SGOT) Alanine Aminotransferase 90 U/L (ALT/SGPT) Alkaline Phosphatase 2224 U/L Total Protein 4.6 GM/DL 4.6 GM/DL Albumin 1.6 GM/DL Lactic Acid Level 3.0 mmol/L 2.7 mmol/L Protein Corrected Calcium 8.7 MG/DL Imaging Last Impressions Renal Ultrasound 04/15/17 0000 Signed Impressions: Service Date/Time: April 10:58 - CONCLUSION: 1. No sonographic evidence for renal calculi or obstructive uropathy. 2. Redemonstration of 5.0 x 4.2 x 4.5 cm cyst in the superior pole of the right kidney. Bertrand Coronel MD Bone Biopsy CT 04/14/17 0600 Signed Impressions: Service Date/Time: Friday, April 14, 2017 16:22 - CONCLUSION: Uncomplicated CT guided biopsy. Kartik Santiago MD FACR Cholangiopancreatography MRI 04/14/17 0000 Signed Impressions: Service Date/Time: Friday, April 14, 2017 14:10 - CONCLUSION: 1. Cholelithiasis. Nonspecific gallbladder wall thickening and pericholecystic fluid. Findings can be seen with acute cholecystitis. 2. Common duct is within normal limits for age. 3. Right renal cyst. 4. Small amount of ascites and small bilateral pleural effusions. Robby Geiger MD Hepatobiliary Scan Nuclear Medicine 04/12/17 0000 Signed Impressions: Service Date/Time: Wednesday, April 12, 2017 12:54 - CONCLUSION: No activity within the biliary system or gallbladder at 2 hours. The findings suggest biliary obstruction or hepatocellular dysfunction. Cystic duct patency cannot be assessed without activity in the biliary system. Delayed imaging may be helpful for further evaluation of this patient. Esteban Murphy MD ADDENDUM: On 24 hour delayed scanning, again no activity is identified in the GI tract. No significant activity is present in the biliary tree. Finding would be consistent with severe hepatocellular dysfunction and cholestatic physiology versus high-grade biliary obstruction. Cristobal Cárdenas MD Chest X-Ray 04/10/17 0000 Signed Impressions: Service Date/Time: Monday, April 10, 2017 16:10 - CONCLUSION: Central line in good position. Kartik Santiago MD FACR Chest CT 04/10/17 0000 Signed Impressions: Service Date/Time: Monday, April 10, 2017 18:39 - CONCLUSION: Minimal bibasilar parenchymal changes are evident. There is no evidence for a primary carcinoma of the lung. There is mild dilatation of the ascending aorta. Moderate vascular calcifications are noted. There is no pericardial effusion. Review of bone windows reveals what looks like widespread sclerotic metastatic disease. This could be biopsied percutaneously for diagnosis. Prostate would be the most likely diagnosis to cause this. Kartik Santiago MD FACR Abdomen/Pelvis CT 04/10/17 0000 Signed Impressions: Service Date/Time: Monday, April 10, 2017 18:39 - CONCLUSION: 1. 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 The right iliac crest could easily be biopsied percutaneously for diagnosis. 2. Prominent gallbladder with gallstones. 3. Site of primary is not identified. 4. There is no evidence for metastatic disease to the liver. Kartik Santiago MD FACR Liver Ultrasound 04/09/17 0000 Signed Impressions: Service Date/Time: Sunday, April 09, 2017 14:35 - CONCLUSION: 1. Cholelithiasis. 2. Echogenic liver compatible with fatty infiltration or hepatocellular disease. Alexandru Souza MD Physical Exam CONSTITUTIONAL/GENERAL: This is a thin elderly chronically ill appaering patient with stigmata of rapid weight loss, in no apparent distress. TUBES/LINES/DRAINS: SKIN: + mild jaundice, rashes, or lesions.Skin temperature appropriate. Not diaphoretic. HEAD: Atraumatic. Normocephalic. EYES: . improved scleral icterus. No injection or drainage. Fundi not examined. ENT: . Oral mucosae moist, poor dentition CARDIOVASCULAR: Regular rate and rhythm without murmurs, gallops, or rubs. No JVD. Peripheral pulses symmetric. RESPIRATORY/CHEST: Symmetric, unlabored respirations. Clear to auscultation. GASTROINTESTINAL: Abdomen soft,not tender ; negative Wyatt, nondistended. No hepato-splenomegaly, or palpable masses. No guarding. Bowel sounds present. GENITOURINARY: Without palpable bladder distension. Huerta catheter in place with clear yellow urine MUSCULOSKELETAL: Extremities without clubbing, cyanosis, or edema. No joint tenderness or effusion noted. No calf tenderness. No mottling or clubbing. NEUROLOGICAL: Awake and alert. Non focal PSYCHIATRIC: No obvious anxiety/depression. no apparent hallucinations or other psychotic thought process. Assessment & Plan Remarks Sepsis, suspected, source is not ID'd yet ? acute cholecystitis. 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 biliary obstruction from primary tumor - no e/o ca however on CT CT chest not sugg of PNA, clin pic not supporting dx of PNA either REC's: consult gen surgery - cont [email or web address] Aamto Dr, MD Apr 15, 2017 19:12
--- NOTE | 2017-04-15 22:50 | PD.ONC.PN ---
Subjective Subjective Remarks remains on pressors/septic had afib with rvr- on Cardizem ? source of infection biliary on IV antibiotics Biopsy results pending Objective Data Date Time Temp Pulse Resp B/P Pulse Ox O2 Delivery O2 Flow Rate FiO2 04/15/17 22:05 94 Nasal Cannula 6.00 04/15/17 20:16 100 Partial Rebreather 12.00 04/15/17 20:00 80 04/15/17 20:00 97.3 80 24 143/57 73 04/15/17 18:00 108 04/15/17 16:00 97.3 93 26 115/51 46 04/15/17 16:00 93 04/15/17 14:00 92 04/15/17 13:00 91 22 145/65 89 04/15/17 12:00 97.8 90 24 123/58 78 04/15/17 12:00 90 04/15/17 11:34 92 Nasal Cannula 6.00 04/15/17 10:00 133 04/15/17 08:00 97.6 162 33 125/94 82 04/15/17 08:00 162 04/15/17 06:00 120 04/15/17 04:00 108 04/15/17 04:00 98.2 164 25 83/56 91 04/15/17 02:00 123 04/15/17 00:00 97.3 164 26 108/59 94 04/15/17 00:00 121 04/15/17 04/15/17 04/15/17 07:00 15:00 23:00 Intake Total 2420 ml 1215 ml Output Total 100 ml 300 ml Balance 2320 ml 915 ml Result Diagram: 04/15/17 0530 04/15/17 1600 Laboratory Results Laboratory Tests Test 04/15/17 04/15/17 04/15/17 04/15/17 00:33 05:30 09:10 16:00 Sodium Level 151 MEQ/L 144 MEQ/L 144 MEQ/L Potassium Level 4.2 MEQ/L 4.2 MEQ/L 4.3 MEQ/L Chloride Level 118 MEQ/L 113 MEQ/L 111 MEQ/L Carbon Dioxide Level 22.3 MEQ/L 19.6 MEQ/L 21.3 MEQ/L Anion Gap 11 MEQ/L 11 MEQ/L 12 MEQ/L Blood Urea Nitrogen 30 MG/DL 39 MG/DL 44 MG/DL Creatinine 1.49 MG/DL 1.75 MG/DL 1.77 MG/DL Estimat Glomerular Filtration 45 ML/MIN 38 ML/MIN 37 ML/MIN Rate Random Glucose 309 MG/DL 141 MG/DL 258 MG/DL Calcium Level 7.7 MG/DL 8.0 MG/DL 7.3 MG/DL Phosphorus Level 2.3 MG/DL 2.6 MG/DL Magnesium Level 1.8 MG/DL 1.9 MG/DL Total Bilirubin 2.8 MG/DL Aspartate Amino Transf 66 U/L (AST/SGOT) Alanine Aminotransferase 90 U/L (ALT/SGPT) Alkaline Phosphatase 2224 U/L Total Protein 4.6 GM/DL 4.6 GM/DL Albumin 1.6 GM/DL White Blood Count 10.1 TH/MM3 Red Blood Count 3.04 MIL/MM3 Hemoglobin 8.4 GM/DL Hematocrit 25.1 % Mean Corpuscular Volume 82.6 FL Mean Corpuscular Hemoglobin 27.8 PG Mean Corpuscular Hemoglobin 33.6 % Concent Red Cell Distribution Width 16.6 % Platelet Count 44 TH/MM3 Mean Platelet Volume 9.6 FL Neutrophils (%) (Auto) 73.3 % Lymphocytes (%) (Auto) 19.6 % Monocytes (%) (Auto) 6.4 % Eosinophils (%) (Auto) 0.4 % Basophils (%) (Auto) 0.3 % Neutrophils # (Auto) 7.4 TH/MM3 Lymphocytes # (Auto) 2.0 TH/MM3 Monocytes # (Auto) 0.6 TH/MM3 Eosinophils # (Auto) 0.0 TH/MM3 Basophils # (Auto) 0.0 TH/MM3 CBC Comment AUTO DIFF Differential Total Cells 100 Counted Neutrophils % (Manual) 65 % Band Neutrophils % 5 % Lymphocytes % 20 % Monocytes % 4 % Neutrophils # (Manual) 7.7 TH/MM3 Metamyelocytes 2 % Myelocytes 4 % Nucleated Red Blood Cells 14 /100 WBC Differential Comment FINAL DIFF MANUAL Platelet Estimate LOW Platelet Morphology Comment NORMAL Lactic Acid Level 3.0 mmol/L 2.7 mmol/L Protein Corrected Calcium 8.7 MG/DL Imaging Studies Last 24 hours Impressions Renal Ultrasound 04/15/17 0000 Signed Impressions: Service Date/Time: April 10:58 - CONCLUSION: 1. No sonographic evidence for renal calculi or obstructive uropathy. 2. Redemonstration of 5.0 x 4.2 x 4.5 cm cyst in the superior pole of the right kidney. Bertrand Coronel MD Administered Medications Medications (Trade) Dose Ordered Sig/John Route PRN Reason Start Time Stop Time Status Last Admin Dose Admin Aspirin (Ecotrin Ec) 81 mg DAILY PO 04/10/17 09:00 04/10/17 09:02 Multivitamins/ Minerals Therapeutic (Theragran M Tab) 1 tab DAILY PO 04/10/17 09:00 04/15/17 08:46 Pravastatin Sodium (Pravachol) 80 mg HS PO 04/09/17 21:00 Hold 04/09/17 19:47 Sodium Chloride (NS Flush) 2 ml BID IV FLUSH 04/09/17 21:00 04/15/17 20:48 Acetaminophen (Tylenol) 650 mg Q4H PRN PO TEMP > 100.4 04/09/17 13:45 04/12/17 22:11 Ondansetron HCl (Zofran Inj) 4 mg Q6H PRN IVP NAUSEA OR VOMITING 04/09/17 13:45 04/09/17 20:27 Senna/Docusate Sodium (Kylee-Colace) 1 tab BID PO 04/09/17 21:00 04/15/17 20:48 Magnesium Hydroxide (Milk Of [place] Liq) 30 ml Q12H PRN PO MILD - MODERATE CONSTIPATION 04/09/17 13:45 04/09/17 22:15 Sennosides (Senokot) 17.2 mg Q12H PRN PO MODERATE - SEVERE CONSTIPATION 04/09/17 13:45 04/12/17 09:27 Enoxaparin Sodium 30 mg 30 mg Q24H SQ 04/09/17 15:00 Hold 04/10/17 16:45 Piperacillin Sod/ Tazobactam Sod (Zosyn 3.375 Gm Premix) 50 ml @ 100 mls/hr Q6H IV 04/10/17 00:00 04/15/17 18:09 Pantoprazole Sodium (Protonix Inj) 40 mg Q24H IV PUSH 04/10/17 10:45 04/15/17 12:03 Insulin Human Regular 1 1 Q6H SQ 04/10/17 11:15 04/15/17 16:13 Potassium Chloride (KCl 40 Meq Premix Inj) 100 ml @ 50 mls/hr Q2H PRN IV-CENTRAL For Potassium 2.8 - 3.2 mEq/L 04/12/17 07:30 04/14/17 05:33 Potassium Phosphate 2000 mg 2,000 mg Q4H PRN PO For Phosphorus < 2.5 mg/dL 04/12/17 07:30 04/14/17 05:35 Sodium Phosphate/ Sodium Chloride (Sodium Phosphate Inj/NS 250 ml Inj) 250 ml @ 42 mls/hr UNSCH PRN IV For Phosphorus < 2.5 mg/dL 04/12/17 07:30 04/13/17 19:33 Hydrocortisone Sodium Succinate (SoluCORTEF INJ) 50 mg Q8HR IV PUSH 04/14/17 14:00 04/15/17 14:25 Polyethylene Glycol (Miralax) 17 gm BID PO 04/14/17 09:30 04/15/17 20:48 Lactulose 30 ml 30 ml QID PO 04/14/17 13:00 04/15/17 20:48 Phenylephrine HCl 160 mg/Dextrose 500 ml @ 0 mls/hr TITRATE IV 04/15/17 08:45 04/15/17 09:15 Diltiazem HCl/ Sodium Chloride (Cardizem Inj/NS Inj) 125 ml @ 0 mls/hr TITRATE IV 04/15/17 08:45 04/15/17 16:13 Objective Remarks GENERAL: critically ill. SKIN: Warm and dry. LYMPHATIC: No adenopathy. CARDIOVASCULAR: IRIR RESPIRATORY: Breath sounds equal bilaterally. No accessory muscle use. GASTROINTESTINAL: Abdomen soft, non-tender, nondistended. EXTREMITIES: No cyanosis, or edema. Assessment/Plan Problem List: (1) Normocytic anemia Status: Acute Plan: --Anemia studies show anemia of chronic inflammation with elevated ferritin. --Serum iron is low and iron saturation is also somewhat low. - oral iron - no evidence of hemolysis. Haptoglobin normal (2) Bony metastasis Status: Acute Plan: --PSA levels pending. [id number] WNL --CT guided biopsy of iliac crest once more stable --CT ab/pelvis shows widespread bony metastatic disease (3) Thrombocytopenia Status: Acute Plan: --likely secondary to sepsis, now improving. --monitor, no transfusion necessary at present. (4) Transaminitis Status: Acute Plan: --Transaminitis and hyperbilirubinemia --bilirubin continues steady rise --HIDA scan shows possible biliary obstruction --Liver US, 04/09: + cholelithiasis and echogenic liver compatible with fatty infiltration or hepatocellular disease. (5) Malnutrition Status: Acute Plan: --Malnutrition and hypoalbuminemia with an albumin of 2.1. --?cancer cachexia --lion trainer following Assessment 81-year-old male with past medical history of hypertension, coronary artery disease, congestive heart failure who presents to the emergency room with a two to three week history of anorexia, fatigue, and significant weight loss of 40 pounds who is now admitted to the ICU for sepsis and hypotension. 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 Plan - Thrombocytopenia due to sepsis/consumption--check daily coags and fibrinogen - Suspected metastatic prostate cancer. PSA elevated and bone mets. Biopsy results pending - Anemia due to acute illness/malignancy. Will transfuse to keep Hb > 8--in the setting of afib/hypotension and sepsis Sean Curry MD Apr 15, 2017 22:50
[2017-04-15 23:50] LABS: INTERNATIONAL NORMALIZED RATIO 1.2 RATIO; PROTHROMBIN TIME - PATIENT 13.2 SEC (9.8-11.6)
[2017-04-16] VITALS (20 sets, daily range): BP systolic 112–176; BP diastolic 55–76; PULSE 74–92; RESP 20–31; TEMP 97.1–97.8; O2SAT 84–99
[2017-04-16] MEDS: DILTIAZEM INJ 125 MG in SODIUM CHLORIDE 0.9% INJ 100 ML IV SCH ×3 (01:20→21:17)
[2017-04-16 03:51] LABS: MITOCHONDRIAL ABS LESS THAN 20.0 U (())
[2017-04-16 05:05] LABS: BASOPHIL % 0.2 % (0.0-2.0); EOSINOPHIL # 0.1 TH/MM3 (0-0.4); EOSINOPHIL % 0.7 % (0.0-4.0); LYMPH % 16.5 % (9.0-44.0); LYMPHOCYTE # 1.7 TH/MM3 (1.0-4.8); MEAN CELL VOLUME 83.2 FL (80.0-100.0); MEAN CORPUSCULAR HEMOGLOBIN 27.6 PG (27.0-34.0); MEAN CORPUSCULAR HGB CONC 33.2 % (32.0-36.0); MONO % 6.2 % (0.0-8.0); NEUT % 76.4 % (16.0-70.0); PLATELET COUNT 50 TH/MM3 (150-450); RED BLOOD COUNT 2.77 MIL/MM3 (4.50-5.90); RED CELL DISTRIBUTION WIDTH 16.6 % (11.6-17.2); WHITE BLOOD COUNT 10.5 TH/MM3 (4.0-11.0)
[2017-04-16 05:08] LABS: HEMO FLAGS AUTO DIFF
[2017-04-16 05:16] LABS: BICARBONATE 22.7 MEQ/L (21.0-32.0); MAGNESIUM 1.8 MG/DL (1.5-2.5); POTASSIUM 4.2 MEQ/L (3.5-5.1)
[2017-04-16] MEDS: INSULIN NovoLIN REGULAR SUPPLEMENTAL SCALE SQ SCH ×4 (05:23→23:18)
[2017-04-16] MEDS: PIPERACIL-TAZO 3.375 GM PREMIX 50 ML IV SCH ×4 (05:23→23:18)
[2017-04-16] MEDS: HYDROCORTISONE SOD SUCCINATE 100 MG VIAL IV PUSH SCH ×3 (05:24→21:17)
[2017-04-16 05:30] LABS: CALCIUM-PROTEIN CORRECTED 8.4 MG/DL (8.5-10.1); TOTAL BILIRUBIN ADULT 2.4 MG/DL (0.2-1.0)
--- NOTE | 2017-04-16 06:36 | RADRPT ---
EXAM DATE/TIME: 04/16/2017 04:52 [facility] COMPARISON: CHEST SINGLE AP, April 10, 2017, 16:10. INDICATIONS : Shortness of breath. MEDICAL HISTORY : Cardiovascular disease. SURGICAL HISTORY : None. ENCOUNTER: Subsequent ACUITY: 1 week PAIN SCORE: Non-responsive. LOCATION: Bilateral chest FINDINGS: The cardiac silhouette is enlarged in transverse diameter. There is subsegmental atelectasis in the l eft base. There is no evidence of pneumonia. No pleural effusions are identified. CONCLUSION: 1. Cardiomegaly. Subsegmental atelectasis left base. Alexandru Souza MD on April 16, 2017 at 6:34 Board Certified Radiologist. This report was verified electronically.
[2017-04-16 07:00] LABS: BANDS 13 % (0-6); CORRECTED NUCLEATED RBC 8 /100 WBC (0-0); METAMYELOCYTES 3 % (0-1); MYELOCYTES 4 % (0-0); NEUTROPHIL # MANUAL DIFF 8.1 TH/MM3 (1.8-7.7); PLATELET ESTIMATE SMEAR LOW (NORMAL); PLATELET MORPHOLOGY NORMAL (NORMAL); POLYS (SEG NEUTROPHILS) 57 % (16-70); SCAN/DIFF FINAL DIFF MANUAL; WBC DIFF SAMPLE 100
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
[2017-04-16] MEDS: DOCUSATE SODIUM 50 MG/SENNA 8.6 MG TAB PO SCH ×2 (08:47→21:17)
[2017-04-16] MEDS: MULTIVITAMINS/MINERALS THERAPEUTIC TAB PO SCH (08:47)
[2017-04-16] MEDS: SODIUM CHLORIDE 0.9% FLUSH 10 ML FLUSH IV FLUSH PRN (08:48)
[2017-04-16] MEDS: SODIUM CHLORIDE 0.9% FLUSH 10 ML FLUSH IV FLUSH SCH ×2 (08:48→21:17)
[2017-04-16] MEDS: ASPIRIN EC 81 MG TABEC PO SCH (08:56)
[2017-04-16] MEDS: LACTULOSE SYRUP 20 GM/30 ML CUP PO SCH ×4 (08:56→21:17)
[2017-04-16] MEDS: POLYETHYLENE GLYCOL 17 GM PKG PO SCH ×2 (09:00→21:00)
--- NOTE | 2017-04-16 10:47 | HHI.PR ---
Subjective Subjective Notes Resting in bed ; reports no RUQ pain Daughter at bedside Objective Vitals/I&O Vital Signs Date Time Temp Pulse Resp B/P Pulse Ox O2 Delivery O2 Flow Rate FiO2 04/16/17 08:13 97 Partial Rebreather 04/16/17 06:00 79 04/16/17 04:00 97.5 20 139/63 04/15/17 22:44 10.00 Labs Laboratory Tests Test 04/15/17 04/15/17 04/16/17 16:00 23:10 04:30 Sodium Level 144 148 Potassium Level 4.3 4.2 Chloride Level 111 116 Carbon Dioxide Level 21.3 22.7 Anion Gap 12 9 Blood Urea Nitrogen 44 39 Creatinine 1.77 1.49 Estimat Glomerular Filtration 37 45 Rate Random Glucose 258 187 Lactic Acid Level 2.7 Calcium Level 7.3 7.1 Protein Corrected Calcium 8.7 8.4 Total Protein 4.6 4.7 Prothrombin Time 13.2 Prothromb Time International 1.2 Ratio White Blood Count 10.5 Red Blood Count 2.77 Hemoglobin 7.6 Hematocrit 23.0 Mean Corpuscular Volume 83.2 Mean Corpuscular Hemoglobin 27.6 Mean Corpuscular Hemoglobin 33.2 Concent Red Cell Distribution Width 16.6 Platelet Count 50 Mean Platelet Volume 9.9 Neutrophils (%) (Auto) 76.4 Lymphocytes (%) (Auto) 16.5 Monocytes (%) (Auto) 6.2 Eosinophils (%) (Auto) 0.7 Basophils (%) (Auto) 0.2 Neutrophils # (Auto) 8.0 Lymphocytes # (Auto) 1.7 Monocytes # (Auto) 0.6 Eosinophils # (Auto) 0.1 Basophils # (Auto) 0.0 CBC Comment AUTO DIFF Differential Total Cells 100 Counted Neutrophils % (Manual) 57 Band Neutrophils % 13 Lymphocytes % 18 Monocytes % 5 Neutrophils # (Manual) 8.1 Metamyelocytes 3 Myelocytes 4 Nucleated Red Blood Cells 8 Differential Comment FINAL DIFF MANUAL Platelet Estimate LOW Platelet Morphology Comment NORMAL Red Cell Morphology Comment NORMAL Haptoglobin 162 Fibrinogen 359 Phosphorus Level 3.0 Magnesium Level 1.8 Total Bilirubin 2.4 Aspartate Amino Transf 326 (AST/SGOT) Alanine Aminotransferase 86 (ALT/SGPT) Alkaline Phosphatase 4729 Albumin 1.9 Cardiovascular: Regular Lungs: Upper airway course sound Abdomen: Non-distended, Non-tender Extremities: No edema A/P Assessment and Plan 81 year old male with elevated PSA; lower back pain; ?? metastatic disease; elevated liver enzymes and radiographic evidence of acute cholecystitis -Abdomen exam benign -Ptl 50K today -Awaiting bone marrow bx results -Okay for diet; heart healthy -Discussed with daughter at bedside--patient not a surgical candidate due to clinical condition and low platelet count -Would consider cholecystostomy tube placement if RUQ pain occurs and platelet count more stable -Due to benign abdominal exam ---would not recommend any intervention except antibiotics -General Surgery will follow peripherally Attending Note - Dr. Kuhn Abdomen remains benign Discussed with patient, family and Dr. Vogt He is not a surgical candidate at this time Likely has metastatic prostate cancer The exam, history, and the medical decision-making described in the above note were completed with the assistance of the mid-level provider. I reviewed and agree with the findings presented. I attest that I had a [id number] encounter with the patient on the same day, and personally performed and documented my assessment and findings in the medical record. Amarilys Chahal Apr 16, 2017 10:47 Walter Kuhn MD Apr 16, 2017 18:26
--- NOTE | 2017-04-16 11:04 | PD.ONC.PN ---
Subjective Subjective Remarks Afebrile overnight. Had a run of V-tach this morning. Was on Cardizem and Nba d/t hypotension. Hypertensive this AM so nba stopped. Not a candidate for pacemaker per cardiology. Objective Data Date Time Temp Pulse Resp B/P Pulse Ox O2 Delivery O2 Flow Rate FiO2 04/16/17 08:13 97 Partial Rebreather 04/16/17 06:00 79 04/16/17 04:00 75 04/16/17 04:00 97.5 75 20 139/63 99 04/16/17 02:00 79 04/16/17 00:00 80 04/16/17 00:00 97.3 80 20 121/58 98 04/15/17 22:44 98 Partial Rebreather 10.00 04/15/17 22:05 94 Nasal Cannula 6.00 04/15/17 22:00 87 04/15/17 20:16 100 Partial Rebreather 12.00 04/15/17 20:00 80 04/15/17 20:00 97.3 80 24 143/57 73 04/15/17 18:00 108 04/15/17 16:00 97.3 93 26 115/51 46 04/15/17 16:00 93 04/15/17 14:00 92 04/15/17 13:00 91 22 145/65 89 04/15/17 12:00 97.8 90 24 123/58 78 04/15/17 12:00 90 04/15/17 11:34 92 Nasal Cannula 6.00 04/16/17 04/16/17 04/16/17 07:00 15:00 23:00 Intake Total 384 ml Output Total 1550 ml Balance -1166 ml Result Diagram: 04/16/17 0430 04/16/17 0430 Laboratory Results Laboratory Tests Test 04/15/17 04/15/17 04/16/17 16:00 23:10 04:30 Sodium Level 144 MEQ/L 148 MEQ/L Potassium Level 4.3 MEQ/L 4.2 MEQ/L Chloride Level 111 MEQ/L 116 MEQ/L Carbon Dioxide Level 21.3 MEQ/L 22.7 MEQ/L Anion Gap 12 MEQ/L 9 MEQ/L Blood Urea Nitrogen 44 MG/DL 39 MG/DL Creatinine 1.77 MG/DL 1.49 MG/DL Estimat Glomerular Filtration 37 ML/MIN 45 ML/MIN Rate Random Glucose 258 MG/DL 187 MG/DL Lactic Acid Level 2.7 mmol/L Calcium Level 7.3 MG/DL 7.1 MG/DL Protein Corrected Calcium 8.7 MG/DL 8.4 MG/DL Total Protein 4.6 GM/DL 4.7 GM/DL Prothrombin Time 13.2 SEC Prothromb Time International 1.2 RATIO Ratio White Blood Count 10.5 TH/MM3 Red Blood Count 2.77 MIL/MM3 Hemoglobin 7.6 GM/DL Hematocrit 23.0 % Mean Corpuscular Volume 83.2 FL Mean Corpuscular Hemoglobin 27.6 PG Mean Corpuscular Hemoglobin 33.2 % Concent Red Cell Distribution Width 16.6 % Platelet Count 50 TH/MM3 Mean Platelet Volume 9.9 FL Neutrophils (%) (Auto) 76.4 % Lymphocytes (%) (Auto) 16.5 % Monocytes (%) (Auto) 6.2 % Eosinophils (%) (Auto) 0.7 % Basophils (%) (Auto) 0.2 % Neutrophils # (Auto) 8.0 TH/MM3 Lymphocytes # (Auto) 1.7 TH/MM3 Monocytes # (Auto) 0.6 TH/MM3 Eosinophils # (Auto) 0.1 TH/MM3 Basophils # (Auto) 0.0 TH/MM3 CBC Comment AUTO DIFF Differential Total Cells 100 Counted Neutrophils % (Manual) 57 % Band Neutrophils % 13 % Lymphocytes % 18 % Monocytes % 5 % Neutrophils # (Manual) 8.1 TH/MM3 Metamyelocytes 3 % Myelocytes 4 % Nucleated Red Blood Cells 8 /100 WBC Differential Comment FINAL DIFF MANUAL Platelet Estimate LOW Platelet Morphology Comment NORMAL Red Cell Morphology Comment NORMAL Haptoglobin 162 MG/DL Fibrinogen 359 mg/dL Phosphorus Level 3.0 MG/DL Magnesium Level 1.8 MG/DL Total Bilirubin 2.4 MG/DL Aspartate Amino Transf 326 U/L (AST/SGOT) Alanine Aminotransferase 86 U/L (ALT/SGPT) Alkaline Phosphatase 4729 U/L Albumin 1.9 GM/DL Imaging Studies Last 24 hours Impressions Chest X-Ray 04/16/17 0600 Signed Impressions: Service Date/Time: Sunday, April 16, 2017 04:52 - CONCLUSION: 1. Cardiomegaly. Subsegmental atelectasis left base. Alexandru Souza MD Administered Medications Medications (Trade) Dose Ordered Sig/John Route PRN Reason Start Time Stop Time Status Last Admin Dose Admin Aspirin (Ecotrin Ec) 81 mg DAILY PO 04/10/17 09:00 04/10/17 09:02 Multivitamins/ Minerals Therapeutic (Theragran M Tab) 1 tab DAILY PO 04/10/17 09:00 04/16/17 08:47 Pravastatin Sodium (Pravachol) 80 mg HS PO 04/09/17 21:00 Hold 04/09/17 19:47 Sodium Chloride (NS Flush) 2 ml UNSCH PRN IV FLUSH FLUSH AFTER USING IV ACCESS 04/09/17 13:45 04/16/17 08:48 Sodium Chloride (NS Flush) 2 ml BID IV FLUSH 04/09/17 21:00 04/16/17 08:48 Acetaminophen (Tylenol) 650 mg Q4H PRN PO TEMP > 100.4 04/09/17 13:45 04/12/17 22:11 Ondansetron HCl (Zofran Inj) 4 mg Q6H PRN IVP NAUSEA OR VOMITING 04/09/17 13:45 04/09/17 20:27 Senna/Docusate Sodium (Kylee-Colace) 1 tab BID PO 04/09/17 21:00 04/16/17 08:47 Magnesium Hydroxide (Milk Of Magnesia Liq) 30 ml Q12H PRN PO MILD - MODERATE CONSTIPATION 04/09/17 13:45 04/09/17 22:15 Sennosides (Senokot) 17.2 mg Q12H PRN PO MODERATE - SEVERE CONSTIPATION 04/09/17 13:45 04/12/17 09:27 Enoxaparin Sodium 30 mg 30 mg Q24H SQ 04/09/17 15:00 Hold 04/10/17 16:45 Piperacillin Sod/ Tazobactam Sod (Zosyn 3.375 Gm Premix) 50 ml @ 100 mls/hr Q6H IV 04/10/17 00:00 04/16/17 05:23 Pantoprazole Sodium (Protonix Inj) 40 mg Q24H IV PUSH 04/10/17 10:45 04/15/17 12:03 Insulin Human Regular 1 1 Q6H SQ 04/10/17 11:15 04/16/17 05:23 Potassium Chloride (KCl 40 Meq Premix Inj) 100 ml @ 50 mls/hr Q2H PRN IV-CENTRAL For Potassium 2.8 - 3.2 mEq/L 04/12/17 07:30 04/14/17 05:33 Potassium Phosphate 2000 mg 2,000 mg Q4H PRN PO For Phosphorus < 2.5 mg/dL 04/12/17 07:30 04/14/17 05:35 Sodium Phosphate/ Sodium Chloride (Sodium Phosphate Inj/NS 250 ml Inj) 250 ml @ 42 mls/hr UNSCH PRN IV For Phosphorus < 2.5 mg/dL 04/12/17 07:30 04/13/17 19:33 Hydrocortisone Sodium Succinate (SoluCORTEF INJ) 50 mg Q8HR IV PUSH 04/14/17 14:00 04/16/17 05:24 Polyethylene Glycol (Miralax) 17 gm BID PO 04/14/17 09:30 04/15/17 20:48 Lactulose 30 ml 30 ml QID PO 04/14/17 13:00 04/16/17 08:56 Phenylephrine HCl 160 mg/Dextrose 500 ml @ 0 mls/hr TITRATE IV 04/15/17 08:45 04/15/17 09:15 Diltiazem HCl/ Sodium Chloride (Cardizem Inj/NS Inj) 125 ml @ 0 mls/hr TITRATE IV 04/15/17 08:45 04/16/17 08:55 Objective Remarks GENERAL: Elderly male, lying in bed, with daughter at bedside. SKIN: Warm and dry. HEAD: Normocephalic. EYES: No injection or drainage. NECK: Supple, trachea midline. CARDIOVASCULAR: +S1/S2 RESPIRATORY: on NRB mask. anterior ba with occasional rhonchi. GASTROINTESTINAL: Abdomen soft, non-tender, nondistended. EXTREMITIES: No cyanosis NEUROLOGICAL: awake and alert, normal speech. Assessment/Plan Problem List: (1) Bony metastasis Status: Acute Plan: --PSA elevated at 252. CA19-9 WNL --s/p biopsy of ilium--pathology pending. --CT ab/pelvis shows widespread bony metastatic disease (2) Thrombocytopenia Status: Acute Plan: --likely secondary to sepsis. --monitor, no transfusion necessary at present. (3) Transaminitis Status: Acute Plan: --Transaminitis and hyperbilirubinemia --HIDA scan shows possible biliary obstruction --Liver US, 04/09: + cholelithiasis and echogenic liver --CT ab/pelvis shows no evidence of liver mets --surgery following for question of cholecystitis, patient not having RUQ pain-- >they recommend cholecystostomy tube if RUQ pain occurs and once platelet count improved. (4) Malnutrition Status: Acute Plan: --Malnutrition and hypoalbuminemia with an albumin of 2.1. --?cancer cachexia --appraisal specialist following (5) Normocytic anemia Status: Acute Plan: --Anemia studies show anemia of chronic inflammation with elevated ferritin. --Serum iron is low and iron saturation is also somewhat low. - no evidence of hemolysis. Haptoglobin normal Assessment 81-year-old male with past medical history of hypertension, coronary artery disease, congestive heart failure who presents to the emergency room with a two to three week history of anorexia, fatigue, and significant weight loss of 40 pounds who is now admitted to the ICU for sepsis and hypotension. 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 Plan 1. monitor CBC, coags 2. await pathology from bone biopsy--prostate cancer suspected. 3. would prefer to keep hgb>8. Attending Statement The exam, history, and the medical decision-making described in the above note were completed with the assistance of the mid-level provider. I reviewed and agree with the findings presented. I attest that I had a [id number] encounter with the patient on the same day, and personally performed and documented my assessment and findings in the medical record On pressors, had Afib and hypoxic Will transfuse 1 unit of pRBC since patient is un-stable with above complications. No evidence of hemolysis Thrombocytopenia due to acute illness and consumption. Fibrinogen is preserved. Check Daily DIC panel/fibrinogen and INR Bone Biopsy pending d/w Bibiana Zambrano Apr 16, 2017 11:04 Sean Curry MD Apr 16, 2017 19:58
[2017-04-16] MEDS: PANTOPRAZOLE SODIUM 40 MG VIAL IV PUSH SCH (12:01)
--- NOTE | 2017-04-16 12:50 | HHI.CCPN ---
Subjective Remarks/Hospital Course Frail, elderly man admitted earlier today with dehydration and general fatigue, recent weight loss. Has developed sustained tachycardia to 130s with increased O2 requirements. Now with worsening hypotension requiring vasopressor support. 04/10 Patient is on Levophed 23 mics. Afebrile. Denies any CP/SOB, N/V abdominal pain 04/11 Patient is on Neosyn and Vasopressin. On 5L oxygen. CT abd/pelvis showed bony mets unclear primary. Afebrile. 04/12 No acute events overnight. Patient is off Neosyn remains on Vasopressin. Afebrile. 04/13 No events overnight. Off all pressors. Afebrile. 04/14: Off all vasopressors. Hemodynamically stable. Plan for bone biopsy right iliac crest today. Noted PSA elevated. On 6 L nasal cannula. Subjective 04/15: A. fib with RVR overnight. Gave 5 mill grams Lopressor that result. Currently in Cardizem drip with Nba-Synephrine with better rate control. Platelets remain low to underlying sepsis 04/16: Remains on pNRB. HR better controlled. Off nba synce 0800 am. Episode of V TAC today, patient asymptomatic. Unchanged CXR. Liver enzymes trending up slightly. Alk phos elevation most likely from bone metastases Objective Vital Signs Date Time Temp Pulse Resp B/P Pulse Ox O2 Delivery O2 Flow Rate FiO2 04/16/17 08:13 97 Partial Rebreather 04/16/17 06:00 79 04/16/17 04:00 97.5 20 139/63 04/15/17 22:44 10.00 Intake and Output 04/15/17 04/15/17 04/16/17 08:00 16:00 00:00 Intake Total 2420 ml 1215 ml 1608 ml Output Total 100 ml 300 ml 700 ml Balance 2320 ml 915 ml 908 ml Result Diagram: 04/16/17 0430 04/16/17 0430 Imaging Last Impressions Bone Biopsy CT 04/14/17 0600 Signed Impressions: Service Date/Time: Friday, April 14, 2017 16:22 - CONCLUSION: Uncomplicated CT guided biopsy. Kartik Santiago MD FACR Cholangiopancreatography MRI 04/14/17 0000 Signed Impressions: Service Date/Time: Friday, April 14, 2017 14:10 - CONCLUSION: 1. Cholelithiasis. Nonspecific gallbladder wall thickening and pericholecystic fluid. Findings can be seen with acute cholecystitis. 2. Common duct is within normal limits for age. 3. Right renal cyst. 4. Small amount of ascites and small bilateral pleural effusions. Robby Geiger MD Hepatobiliary Scan Nuclear Medicine 04/12/17 0000 Signed Impressions: Service Date/Time: Wednesday, April 12, 2017 12:54 - CONCLUSION: No activity within the biliary system or gallbladder at 2 hours. The findings suggest biliary obstruction or hepatocellular dysfunction. Cystic duct patency cannot be assessed without activity in the biliary system. Delayed imaging may be helpful for further evaluation of this patient. Esteban Murphy MD ADDENDUM: On 24 hour delayed scanning, again no activity is identified in the GI tract. No significant activity is present in the biliary tree. Finding would be consistent with severe hepatocellular dysfunction and cholestatic physiology versus high-grade biliary obstruction. Cristobal Cárdenas MD Chest X-Ray 04/10/17 0000 Signed Impressions: Service Date/Time: Monday, April 10, 2017 16:10 - CONCLUSION: Central line in good position. Kartik Santiago MD FACR Chest CT 04/10/17 0000 Signed Impressions: Service Date/Time: Monday, April 10, 2017 18:39 - CONCLUSION: Minimal bibasilar parenchymal changes are evident. There is no evidence for a primary carcinoma of the lung. There is mild dilatation of the ascending aorta. Moderate vascular calcifications are noted. There is no pericardial effusion. Review of bone windows reveals what looks like widespread sclerotic metastatic disease. This could be biopsied percutaneously for diagnosis. Prostate would be the most likely diagnosis to cause this. Kartik Santiago MD FACR Abdomen/Pelvis CT 04/10/17 0000 Signed Impressions: Service Date/Time: Monday, April 10, 2017 18:39 - CONCLUSION: 1. 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 The right iliac crest could easily be biopsied percutaneously for diagnosis. 2. Prominent gallbladder with gallstones. 3. Site of primary is not identified. 4. There is no evidence for metastatic disease to the liver. Kartik Santiago MD FACR Liver Ultrasound 04/09/17 0000 Signed Impressions: Service Date/Time: Sunday, April 09, 2017 14:35 - CONCLUSION: 1. Cholelithiasis. 2. Echogenic liver compatible with fatty infiltration or hepatocellular disease. Alexandru Souza MD Objective Remarks GENERAL: 81-year-old male, appears stated age critically ill currently lying in bed SKIN: Warm and dry. HEAD: Normocephalic. EYES: Pupils are about 3 mm bilaterally and reactive. No scleral icterus. No injection or drainage. NECK: Supple, trachea midline. No JVD or lymphadenopathy. CARDIOVASCULAR: RRR. S1, S2. No S4. No murmur RESPIRATORY: Breath sounds equal bilaterally. No accessory muscle use. GASTROINTESTINAL: Abdomen soft, non-tender, nondistended. No right upper quadrant tenderness/negative Wyatt sign. Hypoactive bowel sounds. MUSCULOSKELETAL: No significant peripheral BACK: Back is tender to bony spinous specifically lumbar palpation Neuro: Awake and alert. Strength is equal and symmetric bilaterally. Normal sensation. Urinary Catheter: Yes Assessment to: Continue Date of Insertion: April 10, 2017 Line: Central Venous Catheter Side: Right Location: Internal, Jugular A/P Assessment and Plan Neuro/Psych: Acetaminophen for fever only CV: Chronic systolic heart failure baseline ejection fraction 30% currently 45 Nonsustained V. tach - not a candidate for defibrillator secondary to likely metastatic cancer Nonsustained VTAC A. fib with RVR Left bundle branch block Coronary artery disease Evaluated by Dr. Monte. Recommended beta thuy once stable. Currently on Coreg 3.125 mg twice a day. Home medication Currently off Nba-Synephrine at 40 mu./m with Cardizem drip at 15 mg hour with better rate control. Holding Vasotec 10 mg by mouth daily for hypertension and acute kidney injury. Echocardiogram 03/31 revealed EF 45%. Decreased systolic function. Septal dyssynchrony secondary to left bundle branch block. Mild TR. Nonsustained V TAC today most likely from CM Currently holding Pravachol 80 mg a night due to elevated transaminases. On Zocor 40 mg a night at home. Continue baby aspirin 81 mg by mouth daily Decreased hydrocortisone 50 every 8. Wean off for 1 week total therapy Resp: Acute hypoxemic respiratory failure pNRB to maintain saturations greater than equal to 92% Incentive spirometry while awake As needed bronchodilator therapy Follow-up chest x-ray in a.m. /2-unchanged GI: Transaminitis Probable cholecystitis Bilirubin decreased from 6-4.[address] abdomen/pelvis revealed cholelithiasis. Right renal cyst 4 mm. Bony metastases likely/hypolucency HIDA scan 24 hours revealed no uptake in the gallbladder. Finding would be consistent with severe hepatocellular dysfunction and cholestatic physiology versus high-grade biliary obstruction MRCP revealed no biliary duct obstruction process. Gallbladder wall thickening with gallstones indicative of acute cholecystitis. Followed by GI/Dr. Heredia. Gen surgery recommendation--patient not a surgical candidate due to clinical condition and low platelet count Would consider cholecystostomy tube placement if RUQ pain occurs and platelet count more stable Hepatitis panel negative Clinical exam DOES NOT support acute cholecystitis : [place] if indicated for accurate I's and O's in a critically ill patient Endo: Diabetes mellitus Low TSH Sliding-scale to maintain euglycemia/medium regimen. Holding metformin 1000 mg by mouth twice a day/home medication TSH was 0.3 on admission. Check free T4/T3 Currently on sliding scale insulin. 19 units past 24 hours Renal: Acute kidney injury likely secondary to renal hypoperfusion and sepsis Creatinine currently within normal limits Accurate I's and O's Monitor urine output Does not appear to have received IV contrast during this hospitalization Heme: Normocytic anemia Thrombocytopenia Elevated PSA Await bone biopsy results Peripheral smear pending PSA was elevated to 53.6. Free PSA was greater than 18. Total PSA was 551. Heparin antibody sent today 04/15 ID: Severe sepsis Pertinent cultures 04/10 - blood cultures 2 - no growth Continue Zosyn. Followed by Dr. Vogt/ ID FEN: Hypophosphatemia Hypokalemia - possibly dilutional Hypernatremia possibly contamination Recheck BMP now. Patient admitted with hyponatremia. Was receiving sodium phosphorus during lab draw MSK: Low back pain likely secondary to metastatic disease PT evaluate and treat Access - Right IJ CVL placed 04/[address] Palmer Prophylaxis - GI - Protonix - DVT - SCD/Lovenox on hold due to thrombocytopenia Level 3 Alberto Jain MD Apr 16, 2017 12:50
[2017-04-16 17:37] LABS: C. DIFF EPI 027 PRESUMPTIVE NEGATIVE (NEGATIVE); C. DIFF TOXIN PCR NEGATIVE (NEGATIVE)
--- NOTE | 2017-04-16 17:50 | HHI.IDPN ---
Subjective Subjective Remarks no pain had a run of V tach Now on nonrebreather UOP good 4 BMs still on pressors afebrile MRCP with Cholelithiasis and nonspecific gallbladder wall thickening and pericholecystic fluid. Seen by Dr Kuhn - recommend observation, cholecystostomy if clinically worse; not a candidate for cholecystectomy 2/2 metastatic cancer Antibiotics zosyn Allergies: Coded Allergies: No Known Allergies (Verified Allergy, Unknown, 02/04/06) Objective . Vital Signs Date Time Temp Pulse Resp B/P Pulse Ox O2 Delivery O2 Flow Rate FiO2 04/16/17 17:00 85 29 122/58 94 04/16/17 16:00 87 04/16/17 16:00 97.3 87 24 123/57 94 04/16/17 15:00 90 27 114/57 91 04/16/17 14:00 87 28 112/55 93 04/16/17 14:00 87 04/16/17 13:00 88 29 132/59 92 04/16/17 12:00 85 04/16/17 12:00 97.4 85 29 150/72 91 04/16/17 11:00 74 20 156/70 96 04/16/17 10:00 81 04/16/17 10:00 81 29 147/64 94 04/16/17 09:00 87 28 176/76 84 04/16/17 08:13 97 Partial Rebreather 04/16/17 08:00 97.1 87 31 142/61 89 04/16/17 08:00 87 04/16/17 07:00 86 30 143/64 93 04/16/17 06:00 79 04/16/17 04:00 75 04/16/17 04:00 97.5 75 20 139/63 99 04/16/17 02:00 79 04/16/17 00:00 80 04/16/17 00:00 97.3 80 20 121/58 98 04/15/17 22:44 98 Partial Rebreather 10.00 04/15/17 22:05 94 Nasal Cannula 6.00 04/15/17 22:00 87 04/15/17 20:16 100 Partial Rebreather 12.00 04/15/17 20:00 80 04/15/17 20:00 97.3 80 24 143/57 73 04/15/17 18:00 108 04/15/17 04/15/17 04/16/17 15:00 23:00 07:00 Intake Total 1215 ml 1608 ml 384 ml Output Total 300 ml 700 ml 1550 ml Balance 915 ml 908 ml -1166 ml Intake Oral 720 ml 400 ml 250 ml IV Total 495 ml 1208 ml 134 ml Output Urine Total 300 ml 700 ml 1550 ml # Bowel Movements 0 0 0 . Laboratory Tests Test 04/15/17 04/16/17 05:30 04:30 White Blood Count 10.1 TH/MM3 10.5 TH/MM3 Red Blood Count 3.04 MIL/MM3 2.77 MIL/MM3 Hemoglobin 8.4 GM/DL 7.6 GM/DL Hematocrit 25.1 % 23.0 % Mean Corpuscular Volume 82.6 FL 83.2 FL Mean Corpuscular Hemoglobin 27.8 PG 27.6 PG Mean Corpuscular Hemoglobin 33.6 % 33.2 % Concent Red Cell Distribution Width 16.6 % 16.6 % Platelet Count 44 TH/MM3 50 TH/MM3 Mean Platelet Volume 9.6 FL 9.9 FL Neutrophils (%) (Auto) 73.3 % 76.4 % Lymphocytes (%) (Auto) 19.6 % 16.5 % Monocytes (%) (Auto) 6.4 % 6.2 % Eosinophils (%) (Auto) 0.4 % 0.7 % Basophils (%) (Auto) 0.3 % 0.2 % Neutrophils # (Auto) 7.4 TH/MM3 8.0 TH/MM3 Lymphocytes # (Auto) 2.0 TH/MM3 1.7 TH/MM3 Monocytes # (Auto) 0.6 TH/MM3 0.6 TH/MM3 Eosinophils # (Auto) 0.0 TH/MM3 0.1 TH/MM3 Basophils # (Auto) 0.0 TH/MM3 0.0 TH/MM3 CBC Comment AUTO DIFF AUTO DIFF Differential Total Cells 100 100 Counted Neutrophils % (Manual) 65 % 57 % Band Neutrophils % 5 % 13 % Lymphocytes % 20 % 18 % Monocytes % 4 % 5 % Neutrophils # (Manual) 7.7 TH/MM3 8.1 TH/MM3 Metamyelocytes 2 % 3 % Myelocytes 4 % 4 % Nucleated Red Blood Cells 14 /100 WBC 8 /100 WBC Differential Comment FINAL DIFF FINAL DIFF MANUAL MANUAL Platelet Estimate LOW LOW Platelet Morphology Comment NORMAL NORMAL Red Cell Morphology Comment NORMAL Haptoglobin 162 MG/DL Laboratory Tests Test 5/31/17 6/1/17 6/1/17 6/1/17 18:22 00:33 09:10 16:00 Sodium Level 155 MEQ/L 151 MEQ/L 144 MEQ/L 144 MEQ/L Potassium Level 4.2 MEQ/L 4.2 MEQ/L 4.2 MEQ/L 4.3 MEQ/L Chloride Level 123 MEQ/L 118 MEQ/L 113 MEQ/L 111 MEQ/L Carbon Dioxide Level 22.6 MEQ/L 22.3 MEQ/L 19.6 MEQ/L 21.3 MEQ/L Anion Gap 9 MEQ/L 11 MEQ/L 11 MEQ/L 12 MEQ/L Blood Urea Nitrogen 24 MG/DL 30 MG/DL 39 MG/DL 44 MG/DL Creatinine 1.25 MG/DL 1.49 MG/DL 1.75 MG/DL 1.77 MG/DL Estimat Glomerular Filtration 56 ML/MIN 45 ML/MIN 38 ML/MIN 37 ML/MIN Rate Random Glucose 210 MG/DL 309 MG/DL 141 MG/DL 258 MG/DL Calcium Level 7.9 MG/DL 7.7 MG/DL 8.0 MG/DL 7.3 MG/DL Phosphorus Level 2.3 MG/DL 2.6 MG/DL Magnesium Level 1.8 MG/DL 1.9 MG/DL Total Bilirubin 2.8 MG/DL Aspartate Amino Transf 66 U/L (AST/SGOT) Alanine Aminotransferase 90 U/L (ALT/SGPT) Alkaline Phosphatase 2224 U/L Total Protein 4.6 GM/DL 4.6 GM/DL Albumin 1.6 GM/DL Lactic Acid Level 3.0 mmol/L 2.7 mmol/L Protein Corrected Calcium 8.7 MG/DL Test 04/16/17 04:30 Sodium Level 148 MEQ/L Potassium Level 4.2 MEQ/L Chloride Level 116 MEQ/L Carbon Dioxide Level 22.7 MEQ/L Anion Gap 9 MEQ/L Blood Urea Nitrogen 39 MG/DL Creatinine 1.49 MG/DL Estimat Glomerular Filtration 45 ML/MIN Rate Random Glucose 187 MG/DL Calcium Level 7.1 MG/DL Protein Corrected Calcium 8.4 MG/DL Phosphorus Level 3.0 MG/DL Magnesium Level 1.8 MG/DL Total Bilirubin 2.4 MG/DL Aspartate Amino Transf 326 U/L (AST/SGOT) Alanine Aminotransferase 86 U/L (ALT/SGPT) Alkaline Phosphatase 4729 U/L Total Protein 4.7 GM/DL Albumin 1.9 GM/DL Imaging Last Impressions Chest X-Ray 04/16/17 06 Signed Impressions: Service Date/Time: Sunday, April 16, 2017 04:52 - CONCLUSION: 1. Cardiomegaly. Subsegmental atelectasis left base. Alexandru Souza MD Renal Ultrasound 04/15/17 0000 Signed Impressions: Service Date/Time: April 10:58 - CONCLUSION: 1. No sonographic evidence for renal calculi or obstructive uropathy. 2. Redemonstration of 5.0 x 4.2 x 4.5 cm cyst in the superior pole of the right kidney. Bertrand Coronel MD Bone Biopsy CT 04/14/17 0600 Signed Impressions: Service Date/Time: Friday, April 14, 2017 16:22 - CONCLUSION: Uncomplicated CT guided biopsy. Kartik Santiago MD FACR Cholangiopancreatography MRI 04/14/17 0000 Signed Impressions: Service Date/Time: Friday, April 14, 2017 14:10 - CONCLUSION: 1. Cholelithiasis. Nonspecific gallbladder wall thickening and pericholecystic fluid. Findings can be seen with acute cholecystitis. 2. Common duct is within normal limits for age. 3. Right renal cyst. 4. Small amount of ascites and small bilateral pleural effusions. Robby Geiger MD Hepatobiliary Scan Nuclear Medicine 04/12/17 0000 Signed Impressions: Service Date/Time: Wednesday, April 12, 2017 12:54 - CONCLUSION: No activity within the biliary system or gallbladder at 2 hours. The findings suggest biliary obstruction or hepatocellular dysfunction. Cystic duct patency cannot be assessed without activity in the biliary system. Delayed imaging may be helpful for further evaluation of this patient. Esteban Murphy MD ADDENDUM: On 24 hour delayed scanning, again no activity is identified in the GI tract. No significant activity is present in the biliary tree. Finding would be consistent with severe hepatocellular dysfunction and cholestatic physiology versus high-grade biliary obstruction. Cristobal Cárdenas MD Chest CT 04/10/17 0000 Signed Impressions: Service Date/Time: Monday, April 10, 2017 18:39 - CONCLUSION: Minimal bibasilar parenchymal changes are evident. There is no evidence for a primary carcinoma of the lung. There is mild dilatation of the ascending aorta. Moderate vascular calcifications are noted. There is no pericardial effusion. Review of bone windows reveals what looks like widespread sclerotic metastatic disease. This could be biopsied percutaneously for diagnosis. Prostate would be the most likely diagnosis to cause this. Kartik Santiago MD FACR Abdomen/Pelvis CT 04/10/17 0000 Signed Impressions: Service Date/Time: Monday, April 10, 2017 18:39 - CONCLUSION: 1. 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 The right iliac crest could easily be biopsied percutaneously for diagnosis. 2. Prominent gallbladder with gallstones. 3. Site of primary is not identified. 4. There is no evidence for metastatic disease to the liver. Kartik Santiago MD FACR Liver Ultrasound 04/09/17 0000 Signed Impressions: Service Date/Time: Sunday, April 09, 2017 14:35 - CONCLUSION: 1. Cholelithiasis. 2. Echogenic liver compatible with fatty infiltration or hepatocellular disease. Alexandru Souza MD Physical Exam CONSTITUTIONAL/GENERAL: This is a thin elderly chronically ill appaering patient with stigmata of rapid weight loss, in no apparent distress. TUBES/LINES/DRAINS: SKIN: + minimal jaundice, rashes, or lesions.Skin temperature appropriate. Not diaphoretic. HEAD: Atraumatic. Normocephalic. EYES: . minimal scleral icterus. No injection or drainage. Fundi not examined. ENT: . Oral mucosae moist, poor dentition CARDIOVASCULAR: Regular rate and rhythm without murmurs, gallops, or rubs. No JVD. Peripheral pulses symmetric. RESPIRATORY/CHEST: Symmetric, unlabored respirations. Clear to auscultation. GASTROINTESTINAL: Abdomen soft,not tender ; negative Wyatt, nondistended. No hepato-splenomegaly, or palpable masses. No guarding. Bowel sounds present. GENITOURINARY: Without palpable bladder distension. Huerta catheter in place with clear yellow urine MUSCULOSKELETAL: Extremities without clubbing, cyanosis, or edema. No joint tenderness or effusion noted. No calf tenderness. No mottling or clubbing. NEUROLOGICAL: Awake and alert. Non focal PSYCHIATRIC: No obvious anxiety/depression. no apparent hallucinations or other psychotic thought process. Assessment & Plan Remarks Sepsis, suspected, source is not ID'd yet - hypotension lactic acidosis, extreme bandemia, resolved Suspected acute calculous cholecystitis. 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 biliary obstruction from primary tumor - no e/o ca however on CT CT chest not sugg of PNA, clin pic not supporting dx of PNA either Abx associated diarrhea, c.diff neagtive REC's: monitor clinically - cont morgan grant RN juanita dgtr @ b/s Jeannette Vogt MD Apr 16, 2017 17:50
[2017-04-17] VITALS (14 sets, daily range): BP systolic 109–145; BP diastolic 57–85; PULSE 78–101; RESP 20–32; TEMP 97.1–98.3; O2SAT 92–99
[2017-04-17] MEDS ORDERED: diphenhydrAMINE HCL 25 MG CAP PO ONE (05:15)
[2017-04-17] MEDS: INSULIN NovoLIN REGULAR SUPPLEMENTAL SCALE SQ SCH ×4 (05:18→23:15)
[2017-04-17] MEDS: HYDROCORTISONE SOD SUCCINATE 100 MG VIAL IV PUSH SCH ×3 (05:20→22:33)
[2017-04-17] MEDS: PIPERACIL-TAZO 3.375 GM PREMIX 50 ML IV SCH ×3 (05:20→18:14)
[2017-04-17] MEDS: ACETAMINOPHEN 325 MG TAB PO PRN (05:21)
[2017-04-17] MEDS: DILTIAZEM INJ 125 MG in SODIUM CHLORIDE 0.9% INJ 100 ML IV SCH (05:27)
[2017-04-17] MEDS: LACTULOSE SYRUP 20 GM/30 ML CUP PO SCH ×4 (09:00→20:10)
[2017-04-17] MEDS: ASPIRIN EC 81 MG TABEC PO SCH ×2 (09:00→09:41)
[2017-04-17] MEDS: POLYETHYLENE GLYCOL 17 GM PKG PO SCH ×2 (09:00→20:10)
[2017-04-17] MEDS: DOCUSATE SODIUM 50 MG/SENNA 8.6 MG TAB PO SCH ×2 (09:00→20:10)
[2017-04-17] MEDS: MULTIVITAMINS/MINERALS THERAPEUTIC TAB PO SCH (09:40)
[2017-04-17] MEDS: SODIUM CHLORIDE 0.9% FLUSH 10 ML FLUSH IV FLUSH SCH ×2 (09:40→20:10)
[2017-04-17] MEDS: PANTOPRAZOLE SODIUM 40 MG VIAL IV PUSH SCH (09:48)
--- NOTE | 2017-04-17 10:31 | HHI.CCPN ---
Subjective Remarks/Hospital Course Frail, elderly man admitted earlier today with dehydration and general fatigue, recent weight loss. Has developed sustained tachycardia to 130s with increased O2 requirements. Now with worsening hypotension requiring vasopressor support. 04/10 Patient is on Levophed 23 mics. Afebrile. Denies any CP/SOB, N/V abdominal pain 04/11 Patient is on Neosyn and Vasopressin. On 5L oxygen. CT abd/pelvis showed bony mets unclear primary. Afebrile. 04/12 No acute events overnight. Patient is off Neosyn remains on Vasopressin. Afebrile. 04/13 No events overnight. Off all pressors. Afebrile. 04/14: Off all vasopressors. Hemodynamically stable. Plan for bone biopsy right iliac crest today. Noted PSA elevated. On 6 L nasal cannula. Subjective 04/15: A. fib with RVR overnight. Gave 5 mill grams Lopressor that result. Currently in Cardizem drip with Nba-Synephrine with better rate control. Platelets remain low to underlying sepsis 04/16: Remains on pNRB. HR better controlled. Off nba since 0800 am. Episode of V TAC today, patient asymptomatic. Unchanged CXR. Liver enzymes trending up slightly. Alk phos elevation most likely from bone metastases 04/17: Remains on pressors but continues to be on Cardizem infusion. Receiving 1 unit of PRBC. Intermittent nonsustained V. tach. I will place him on metoprolol 12.5 every 8 hours. Objective Vital Signs Date Time Temp Pulse Resp B/P Pulse Ox O2 Delivery O2 Flow Rate FiO2 04/17/17 10:00 88 04/17/17 09:45 99 Partial Rebreather 04/17/17 04:00 97.8 32 138/77 04/16/17 20:20 10.00 Intake and Output 04/16/17 04/16/17 04/17/17 08:00 16:00 00:00 Intake Total 384 ml 2294 ml 734 ml Output Total 1550 ml 2050 ml 3000 ml Balance -1166 ml 244 ml -2266 ml Result Diagram: 04/16/17 0430 04/16/17 0430 Imaging Last Impressions Bone Biopsy CT 04/14/17 0600 Signed Impressions: Service Date/Time: Friday, April 14, 2017 16:22 - CONCLUSION: Uncomplicated CT guided biopsy. Kartik Santiago MD FACR Cholangiopancreatography MRI 04/14/17 0000 Signed Impressions: Service Date/Time: Friday, April 14, 2017 14:10 - CONCLUSION: 1. Cholelithiasis. Nonspecific gallbladder wall thickening and pericholecystic fluid. Findings can be seen with acute cholecystitis. 2. Common duct is within normal limits for age. 3. Right renal cyst. 4. Small amount of ascites and small bilateral pleural effusions. Robby Geiger MD Hepatobiliary Scan Nuclear Medicine 04/12/17 0000 Signed Impressions: Service Date/Time: Wednesday, April 12, 2017 12:54 - CONCLUSION: No activity within the biliary system or gallbladder at 2 hours. The findings suggest biliary obstruction or hepatocellular dysfunction. Cystic duct patency cannot be assessed without activity in the biliary system. Delayed imaging may be helpful for further evaluation of this patient. Esteban Murphy MD ADDENDUM: On 24 hour delayed scanning, again no activity is identified in the GI tract. No significant activity is present in the biliary tree. Finding would be consistent with severe hepatocellular dysfunction and cholestatic physiology versus high-grade biliary obstruction. Cristobal Cárdenas MD Chest X-Ray 04/10/17 0000 Signed Impressions: Service Date/Time: Monday, April 10, 2017 16:10 - CONCLUSION: Central line in good position. Kartik Santiago MD FACR Chest CT 04/10/17 0000 Signed Impressions: Service Date/Time: Monday, April 10, 2017 18:39 - CONCLUSION: Minimal bibasilar parenchymal changes are evident. There is no evidence for a primary carcinoma of the lung. There is mild dilatation of the ascending aorta. Moderate vascular calcifications are noted. There is no pericardial effusion. Review of bone windows reveals what looks like widespread sclerotic metastatic disease. This could be biopsied percutaneously for diagnosis. Prostate would be the most likely diagnosis to cause this. Kartik Santiago MD FACR Abdomen/Pelvis CT 04/10/17 0000 Signed Impressions: Service Date/Time: Monday, April 10, 2017 18:39 - CONCLUSION: 1. 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 The right iliac crest could easily be biopsied percutaneously for diagnosis. 2. Prominent gallbladder with gallstones. 3. Site of primary is not identified. 4. There is no evidence for metastatic disease to the liver. Kartik Santiago MD FACR Liver Ultrasound 04/09/17 0000 Signed Impressions: Service Date/Time: Sunday, April 09, 2017 14:35 - CONCLUSION: 1. Cholelithiasis. 2. Echogenic liver compatible with fatty infiltration or hepatocellular disease. Alexandru Souza MD Objective Remarks GENERAL: 81-year-old male, appears stated age critically ill currently lying in bed SKIN: Warm and dry. HEAD: Normocephalic. EYES: Pupils are about 3 mm bilaterally and reactive. No scleral icterus. No injection or drainage. NECK: Supple, trachea midline. No JVD or lymphadenopathy. CARDIOVASCULAR: A. fib with RVR, PVCs. S1, S2. No S4. No murmur RESPIRATORY: Breath sounds equal bilaterally. No accessory muscle use. GASTROINTESTINAL: Abdomen soft, non-tender, nondistended. No right upper quadrant tenderness/negative Wyatt sign. Hypoactive bowel sounds. MUSCULOSKELETAL: No significant peripheral edema BACK: Back is tender to bony spinous specifically lumbar palpation Neuro: Awake and alert, oriented to person and place. Strength is equal and symmetric bilaterally. Normal sensation. Date of Insertion: April 10, 2017 Line: Central Venous Catheter Side: Right Location: Internal, Jugular A/P Assessment and Plan Neuro/Psych: Acetaminophen for fever only CV: Chronic systolic heart failure baseline ejection fraction 30% currently 45 Nonsustained V. tach - not a candidate for defibrillator secondary to likely metastatic cancer A. fib with RVR Left bundle branch block Coronary artery disease Evaluated by Dr. Monte. Recommended beta thuy once stable. Start metoprolol 12.5 mg by mouth every 8 hours Cardizem drip at 15 mg hour with better rate control. Start by mouth Cardizem and wean off IV Cardizem Holding Vasotec 10 mg by mouth daily for hypertension and acute kidney injury. Echocardiogram 03/31 revealed EF 45%. Decreased systolic function. Septal dyssynchrony secondary to left bundle branch block. Mild TR. Nonsustained V TAC most likely from CM. keep mag about 2, potassium above 4. Metoprolol started as above Currently holding Pravachol 80 mg a night due to elevated transaminases. On Zocor 40 mg a night at home. Continue baby aspirin 81 mg by mouth daily Decreased hydrocortisone 50 every 8. Wean off for 1 week total therapy Resp: Acute hypoxemic respiratory failure pNRB to maintain saturations greater than equal to 92% Incentive spirometry while awake As needed bronchodilator therapy Follow-up chest x-ray in a.m. 04/16-unchanged GI: Transaminitis Probable acute cholecystitis Bilirubin decreased from 6-4.5 to 2.4 04/16. CT abdomen/pelvis revealed cholelithiasis. Right renal cyst 4 mm. Bony metastases likely/hypolucency HIDA scan 24 hours revealed no uptake in the gallbladder. Finding consistent with severe hepatocellular dysfunction and cholestatic physiology versus high-grade biliary obstruction MRCP revealed no biliary duct obstruction process. Gallbladder wall thickening with gallstones indicative of acute cholecystitis. Followed by GI/Dr. Heredia. Gen surgery recommendation--patient not a surgical candidate due to clinical condition and low platelet count Would consider cholecystostomy tube placement if RUQ pain occurs and platelet count more stable Hepatitis panel negative Clinical exam DOES NOT support acute cholecystitis : Huerta if indicated for accurate I's and O's in a critically ill patient Endo: Diabetes mellitus Low TSH Sliding-scale to maintain euglycemia/medium regimen. Holding metformin 1000 mg by mouth twice a day TSH was 0.3 on admission. Currently on sliding scale insulin. 19 units past 24 hours Renal: Acute kidney injury likely secondary to renal hypoperfusion and sepsis Creatinine currently improving Accurate I's and O's Monitor urine output Does not appear to have received IV contrast during this hospitalization Heme: Normocytic anemia Thrombocytopenia Elevated PSA Await bone biopsy results PSA was elevated to 53.6. Free PSA was greater than 18. Total PSA was 551. Heparin antibody sent today 04/15 Hematology oncology following ID: Severe sepsis Probable acute cholecystitis Pertinent cultures 04/10 - blood cultures 2 - no growth Continue Zosyn. Followed by Dr. Vogt/ ID FEN: Hypophosphatemia Hypokalemia - possibly dilutional Hypernatremia possibly contamination Replace electrolytes as needed MSK: Low back pain likely secondary to metastatic disease PT evaluate and treat. Up to chair today Access - Right IJ CVL placed 04/[address] Palmer Prophylaxis - GI - Protonix - DVT - SCD/Lovenox on hold due to thrombocytopenia CCT 35 Patient remains critically ill with acute respiratory failure, renal failure, atrial fibrillation with RVR. Though critically ill he seems to be slowly improving Alberto Jain MD Apr 17, 2017 10:31
--- NOTE | 2017-04-17 11:18 | HHI.GIFU ---
Subjective Remarks Patient is resting in bed, daughter and nurse by bed side. Patient is doing good today, eat 100 % of breakfast, no nausea, no vomiting, no abd pain. (CurtDeshaun BECERRA) Objective Vitals I&O Vital Signs Date Time Temp Pulse Resp B/P Pulse Ox O2 Delivery O2 Flow Rate FiO2 04/17/17 10:00 88 04/17/17 09:45 99 Partial Rebreather 04/17/17 08:00 86 04/17/17 06:00 90 04/17/17 04:00 97.8 99 32 138/77 92 04/17/17 04:00 97 04/17/17 02:00 97.3 87 25 109/57 94 04/17/17 02:00 87 04/17/17 00:00 90 04/17/17 00:00 97.4 04/16/17 22:00 88 04/16/17 20:20 98 Partial Rebreather 10.00 04/16/17 20:00 92 04/16/17 20:00 97.8 92 28 124/60 93 04/16/17 18:00 90 04/16/17 17:00 85 29 122/58 94 04/16/17 16:00 87 04/16/17 16:00 97.3 87 24 123/57 94 04/16/17 15:00 90 27 114/57 91 04/16/17 14:00 87 28 112/55 93 04/16/17 14:00 87 04/16/17 13:00 88 29 132/59 92 04/16/17 12:00 85 04/16/17 12:00 97.4 85 29 150/72 91 I/O 04/16/17 04/16/17 04/16/17 04/17/17 04/17/17 04/17/17 06:59 14:59 22:59 06:59 14:59 22:59 Intake Total 384 ml 2294 ml 734 ml 1090 ml Output Total 1550 ml 2050 ml 3000 ml 2200 ml Balance -1166 ml 244 ml -2266 ml -1110 ml Intake Oral 250 ml 600 ml 600 ml 800 ml Oral Supplement 250 ml IV Total 134 ml 1444 ml 134 ml 290 ml Output Urine Total 1550 ml 2050 ml 3000 ml 2200 ml # Bowel Movements 0 4 1 0 Laboratory Laboratory Tests Test 04/16/17 04/16/17 04/16/17 04/17/17 14:15 14:35 21:41 01:34 Stool C. difficile Toxin (PCR) NEGATIVE Stl C. difficile Toxin PRESUMPTIVE Epiderm 027 NEGATIVE Urine Eosinophils NONE SEEN Urine Random Creatinine 13.9 Urine Random Sodium 10 Blood Type O POSITIVE O POSITIVE Antibody Screen NEGATIVE Crossmatch Leukocyte-Reduced Red Blood Cells Blood Bank Comment Imaging Last Impressions Chest X-Ray 04/16/17 0600 Signed Impressions: Service Date/Time: Sunday, April 16, 2017 04:52 - CONCLUSION: 1. Cardiomegaly. Subsegmental atelectasis left base. Alexandru Souza MD Renal Ultrasound 04/15/17 0000 Signed Impressions: Service Date/Time: April 10:58 - CONCLUSION: 1. No sonographic evidence for renal calculi or obstructive uropathy. 2. Redemonstration of 5.0 x 4.2 x 4.5 cm cyst in the superior pole of the right kidney. Bertrand Coronel MD Bone Biopsy CT 04/14/17 0600 Signed Impressions: Service Date/Time: Friday, April 14, 2017 16:22 - CONCLUSION: Uncomplicated CT guided biopsy. Kartik Santiago MD FACR Cholangiopancreatography MRI 04/14/17 0000 Signed Impressions: Service Date/Time: Friday, April 14, 2017 14:10 - CONCLUSION: 1. Cholelithiasis. Nonspecific gallbladder wall thickening and pericholecystic fluid. Findings can be seen with acute cholecystitis. 2. Common duct is within normal limits for age. 3. Right renal cyst. 4. Small amount of ascites and small bilateral pleural effusions. Robby Geiger MD Hepatobiliary Scan Nuclear Medicine 04/12/17 0000 Signed Impressions: Service Date/Time: Wednesday, April 12, 2017 12:54 - CONCLUSION: No activity within the biliary system or gallbladder at 2 hours. The findings suggest biliary obstruction or hepatocellular dysfunction. Cystic duct patency cannot be assessed without activity in the biliary system. Delayed imaging may be helpful for further evaluation of this patient. Esteban Murphy MD ADDENDUM: On 24 hour delayed scanning, again no activity is identified in the GI tract. No significant activity is present in the biliary tree. Finding would be consistent with severe hepatocellular dysfunction and cholestatic physiology versus high-grade biliary obstruction. Cristobal Cárdenas MD Chest CT 04/10/17 0000 Signed Impressions: Service Date/Time: Monday, April 10, 2017 18:39 - CONCLUSION: Minimal bibasilar parenchymal changes are evident. There is no evidence for a primary carcinoma of the lung. There is mild dilatation of the ascending aorta. Moderate vascular calcifications are noted. There is no pericardial effusion. Review of bone windows reveals what looks like widespread sclerotic metastatic disease. This could be biopsied percutaneously for diagnosis. Prostate would be the most likely diagnosis to cause this. Kartik Santiago MD FACR Abdomen/Pelvis CT 04/10/17 0000 Signed Impressions: Service Date/Time: Monday, April 10, 2017 18:39 - CONCLUSION: 1. 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 The right iliac crest could easily be biopsied percutaneously for diagnosis. 2. Prominent gallbladder with gallstones. 3. Site of primary is not identified. 4. There is no evidence for metastatic disease to the liver. Kartik Santiago MD FACR Liver Ultrasound 04/09/17 0000 Signed Impressions: Service Date/Time: Sunday, April 09, 2017 14:35 - CONCLUSION: 1. Cholelithiasis. 2. Echogenic liver compatible with fatty infiltration or hepatocellular disease. Alexandru Souza MD Physical Exam HEENT: Cachectic CHEST: Chest is clear to auscultation and percussion. CARDIAC: Regular rate and rhythm with no murmur gallop or rubs. ABDOMEN: Soft, nondistended, nontender; no hepatosplenomegaly; bowel sounds are present in all four quadrants. EXTREMITIES: No clubbing, cyanosis, or edema. Neurology: Alert and oriented (Amawi,Khawla YEAST DISTILLER) Assessment and Plan Plan ASSESSMENT: - Bone mets and unknown primary, asymptomatic. bone bx pending - Elevated LFTs. Improving likely hypoperfusion related (Hepatocellular insult) or cholecystitis. HIDA scan results noted. LETI neg, AMA neg. ASMA neg. Hep neg. MRCP --> Cholelithiasis. Nonspecific gallbladder wall thickening and pericholecystic fluid. Findings can be seen with acute cholecystitis. 2. Common duct is within normal limits for age. 3. Right renal cyst. 4. Small amount of ascites and small bilateral pleural effusions. - Weight loss and poor appetite, - Cholecystitis- GS on the case, patient not a candidate for surg. rhonda tube in the consideration if patient develops pain and plt stable - Possible sepsis/lactic acidosis/hypotension/tachycardia, etiology unclear. Pt is on Zosyn and Levaquin. No fever or elevated WBC count. Management per CCM. - Diabetes mellitus, CHF with reported EF 30%. Management per attending. PLAN: - Heart healthy diet - GS on the case - Monitor LFTs - await rest of liver w/u - Further recommendations as the case develops This pt seen by myself and Dr Heredia and this note is written on his behalf ( Deshaun Elias) Physician Comments Seen and examined, plan as above. (Thea Heredia MD) Deshaun Elias Apr 17, 2017 11:18 Thea Heredia MD Apr 17, 2017 11:33
[2017-04-17] MEDS ORDERED: PILL SPLITTER OTHER PRN (11:30)
[2017-04-17 12:41] LABS: CALCIUM-PROTEIN CORRECTED 8.2 MG/DL (8.5-10.1); MAGNESIUM 1.7 MG/DL (1.5-2.5); TOTAL BILIRUBIN ADULT 2.7 MG/DL (0.2-1.0)
[2017-04-17 12:42] LABS: BICARBONATE 25.8 MEQ/L (21.0-32.0); POTASSIUM 3.2 MEQ/L (3.5-5.1)
[2017-04-17] MEDS: DILTIAZEM HCL 60 MG TAB PO SCH ×2 (13:06→18:14)
[2017-04-17] MEDS: METOPROLOL TARTRATE 25 MG TAB PO SCH ×2 (13:07→22:34)
[2017-04-17] MEDS ORDERED: 1/2 NS + KCL 20 MEQ INJ 1,000 ML IV SCH (13:30)
[2017-04-17] MEDS ORDERED: SODIUM CHLOR 0.45% 500 ML INJ 500 ML IV ONE (13:30)
[2017-04-17 19:40] LABS: BICARBONATE 28.6 MEQ/L (21.0-32.0); POTASSIUM 3.1 MEQ/L (3.5-5.1)
[2017-04-17 20:00] LABS: HEMATOCRIT 28.2 % (39.0-51.0)
[2017-04-17] MEDS: DEXTROSE 5% IN WATE 1000ML INJ 1,000 ML IV SCH (20:10)
[2017-04-17 20:14] LABS: REVIEW FLAG FINAL
[2017-04-18] VITALS (12 sets, daily range): BP systolic 118–166; BP diastolic 60–86; PULSE 82–131; RESP 22–41; TEMP 97.6–98.4; O2SAT 91–100
[2017-04-18] MEDS: DILTIAZEM HCL 60 MG TAB PO SCH ×5 (00:04→22:54)
[2017-04-18] MEDS: PIPERACIL-TAZO 3.375 GM PREMIX 50 ML IV SCH ×5 (00:04→22:54)
[2017-04-18] MEDS ORDERED: LORazepam 2 MG/ML VIAL IM ONE (01:30)
--- NOTE | 2017-04-18 04:29 | RADRPT ---
EXAM DATE/TIME: 04/18/2017 03:36 [facility] COMPARISON: CHEST SINGLE AP, April 16, 2017, 4:52. INDICATIONS : Shortness of breath, possible pulmonary disease. MEDICAL HISTORY : Cardiovascular disease. SURGICAL HISTORY : None. ENCOUNTER: Subsequent ACUITY: 1 week PAIN SCORE: Non-responsive. LOCATION: Bilateral chest FINDINGS: Right IJ line is present with tip overlapping the expected region of the SVC. Perivascular interstiti al process is present probably pulmonary edema. Slight left mid lung atelectasis is seen. The examina tion is slightly limited due to motion artifact. Heart and mediastinum are unremarkable for technique . CONCLUSION: The examination is slightly limited due to motion artifact, however slight pulmonary edema and left m idlung atelectasis is suspected. Abby Denson MD on April 18, 2017 at 4:27 Board Certified Radiologist. This report was verified electronically.
[2017-04-18] MEDS: INSULIN NovoLIN REGULAR SUPPLEMENTAL SCALE SQ SCH ×4 (05:15→22:55)
[2017-04-18 05:58] LABS: HEMATOCRIT 29.7 % (39.0-51.0); MEAN CELL VOLUME 81.6 FL (80.0-100.0); MEAN CORPUSCULAR HEMOGLOBIN 28.1 PG (27.0-34.0); MEAN CORPUSCULAR HGB CONC 34.5 % (32.0-36.0); PLATELET COUNT 62 TH/MM3 (150-450); RED BLOOD COUNT 3.63 MIL/MM3 (4.50-5.90); RED CELL DISTRIBUTION WIDTH 17.3 % (11.6-17.2); WHITE BLOOD COUNT 12.4 TH/MM3 (4.0-11.0)
[2017-04-18 06:01] LABS: HEMO FLAGS AUTO DIFF
[2017-04-18 06:18] LABS: BICARBONATE 31.2 MEQ/L (21.0-32.0); MAGNESIUM 1.7 MG/DL (1.5-2.5)
[2017-04-18 06:22] LABS: POTASSIUM 2.8 MEQ/L (3.5-5.1)
[2017-04-18] MEDS: HYDROCORTISONE SOD SUCCINATE 100 MG VIAL IV PUSH SCH ×3 (06:34→22:55)
[2017-04-18] MEDS: DEXTROSE 5% IN WATE 1000ML INJ 1,000 ML IV SCH ×4 (06:35→20:22)
[2017-04-18] MEDS: METOPROLOL TARTRATE 25 MG TAB PO SCH ×3 (06:35→22:54)
[2017-04-18] MEDS: POTASSIUM CHLOR 40 MEQ PREMIX 100 ML IV-CENTRAL PRN ×3 (07:15→14:11)
[2017-04-18 07:32] LABS: CALCIUM-PROTEIN CORRECTED 8.3 MG/DL (8.5-10.1); TOTAL BILIRUBIN ADULT 2.8 MG/DL (0.2-1.0)
[2017-04-18 08:21] LABS: BANDS 9 % (0-6); CORRECTED NUCLEATED RBC 11 /100 WBC (0-0); METAMYELOCYTES 3 % (0-1); MYELOCYTES 6 % (0-0); NEUTROPHIL # MANUAL DIFF 10.2 TH/MM3 (1.8-7.7); POLYS (SEG NEUTROPHILS) 64 % (16-70); WBC DIFF SAMPLE 100
[2017-04-18 08:22] LABS: PLATELET ESTIMATE SMEAR LOW (NORMAL)
[2017-04-18 08:23] LABS: PLATELET MORPHOLOGY ENLARGED (NORMAL); SCAN/DIFF FINAL DIFF MANUAL
[2017-04-18] MEDS: MULTIVITAMINS/MINERALS THERAPEUTIC TAB PO SCH (08:53)
[2017-04-18] MEDS: DOCUSATE SODIUM 50 MG/SENNA 8.6 MG TAB PO SCH ×2 (08:53→20:22)
[2017-04-18] MEDS: POLYETHYLENE GLYCOL 17 GM PKG PO SCH ×2 (08:53→20:22)
[2017-04-18] MEDS: LACTULOSE SYRUP 20 GM/30 ML CUP PO SCH ×4 (08:53→20:22)
[2017-04-18] MEDS: ASPIRIN EC 81 MG TABEC PO SCH (08:54)
[2017-04-18] MEDS ORDERED: DEXTROSE 50% IN WATER 50 ML VIAL(D50) IV PRN (10:45)
[2017-04-18] MEDS ORDERED: DEXTROSE 5% IN WATE 500 ML INJ 500 ML IV ONE (10:45)
--- NOTE | 2017-04-18 10:52 | HHI.CCPN ---
Subjective Remarks/Hospital Course Frail, elderly man admitted earlier today with dehydration and general fatigue, recent weight loss. Has developed sustained tachycardia to 130s with increased O2 requirements. Now with worsening hypotension requiring vasopressor support. 04/10 Patient is on Levophed 23 mics. Afebrile. Denies any CP/SOB, N/V abdominal pain 04/11 Patient is on Neosyn and Vasopressin. On 5L oxygen. CT abd/pelvis showed bony mets unclear primary. Afebrile. 04/12 No acute events overnight. Patient is off Neosyn remains on Vasopressin. Afebrile. 04/13 No events overnight. Off all pressors. Afebrile. 04/14: Off all vasopressors. Hemodynamically stable. Plan for bone biopsy right iliac crest today. Noted PSA elevated. On 6 L nasal cannula. Subjective 04/15: A. fib with RVR overnight. Gave 5 mill grams Lopressor that result. Currently in Cardizem drip with Nba-Synephrine with better rate control. Platelets remain low to underlying sepsis 04/16: Remains on pNRB. HR better controlled. Off nba since 0800 am. Episode of V TAC today, patient asymptomatic. Unchanged CXR. Liver enzymes trending up slightly. Alk phos elevation most likely from bone metastases 04/17: Remains on pressors but continues to be on Cardizem infusion. Receiving 1 unit of PRBC. Intermittent nonsustained V. tach. I will place him on metoprolol 12.5 every 8 hours. 04/18: Patient remains polyuric and hypernatremic. Urine output approximately 9 L sodium 166. Clinical picture consistent with GI probably central given history of metastatic cancer. We'll send stat serum and urine osmolality, serum and urine sodium, serum ADH levels. After blood is drawn, give 0.5mcg of DDAVP Daughter at bedside requests DNR Objective Vital Signs Date Time Temp Pulse Resp B/P Pulse Ox O2 Delivery O2 Flow Rate FiO2 04/18/17 10:00 94 Partial Rebreather 04/18/17 06:00 99 04/18/17 04:00 98.4 41 148/70 04/17/17 19:02 15.00 Intake and Output 04/17/17 04/17/17 04/18/17 08:00 16:00 00:00 Intake Total 1090 ml 1307 ml Output Total 2200 ml 3500 ml 2600 ml Balance -1110 ml -3500 ml -1293 ml Result Diagram: 04/18/17 0400 04/18/17 0400 Imaging Last Impressions Bone Biopsy CT 04/14/17 0600 Signed Impressions: Service Date/Time: Friday, April 14, 2017 16:22 - CONCLUSION: Uncomplicated CT guided biopsy. Kartik Santiago MD FACR Cholangiopancreatography MRI 04/14/17 0000 Signed Impressions: Service Date/Time: Friday, April 14, 2017 14:10 - CONCLUSION: 1. Cholelithiasis. Nonspecific gallbladder wall thickening and pericholecystic fluid. Findings can be seen with acute cholecystitis. 2. Common duct is within normal limits for age. 3. Right renal cyst. 4. Small amount of ascites and small bilateral pleural effusions. Robby Geiger MD Hepatobiliary Scan Nuclear Medicine 04/12/17 0000 Signed Impressions: Service Date/Time: Wednesday, April 12, 2017 12:54 - CONCLUSION: No activity within the biliary system or gallbladder at 2 hours. The findings suggest biliary obstruction or hepatocellular dysfunction. Cystic duct patency cannot be assessed without activity in the biliary system. Delayed imaging may be helpful for further evaluation of this patient. Esteban Murphy MD ADDENDUM: On 24 hour delayed scanning, again no activity is identified in the GI tract. No significant activity is present in the biliary tree. Finding would be consistent with severe hepatocellular dysfunction and cholestatic physiology versus high-grade biliary obstruction. Cristobal Cárdenas MD Chest X-Ray 04/10/17 0000 Signed Impressions: Service Date/Time: Monday, April 10, 2017 16:10 - CONCLUSION: Central line in good position. Kartik Santiago MD FACR Chest CT 04/10/17 0000 Signed Impressions: Service Date/Time: Monday, April 10, 2017 18:39 - CONCLUSION: Minimal bibasilar parenchymal changes are evident. There is no evidence for a primary carcinoma of the lung. There is mild dilatation of the ascending aorta. Moderate vascular calcifications are noted. There is no pericardial effusion. Review of bone windows reveals what looks like widespread sclerotic metastatic disease. This could be biopsied percutaneously for diagnosis. Prostate would be the most likely diagnosis to cause this. Kartik Santiago MD FACR Abdomen/Pelvis CT 04/10/17 0000 Signed Impressions: Service Date/Time: Monday, April 10, 2017 18:39 - CONCLUSION: 1. 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 The right iliac crest could easily be biopsied percutaneously for diagnosis. 2. Prominent gallbladder with gallstones. 3. Site of primary is not identified. 4. There is no evidence for metastatic disease to the liver. Kartik Santiago MD FACR Liver Ultrasound 04/09/17 0000 Signed Impressions: Service Date/Time: Sunday, April 09, 2017 14:35 - CONCLUSION: 1. Cholelithiasis. 2. Echogenic liver compatible with fatty infiltration or hepatocellular disease. Alexandru Souza MD Objective Remarks GENERAL: 81-year-old male, appears stated age critically ill currently lying in bed SKIN: Warm and dry. HEAD: Normocephalic. EYES: Pupils are about 3 mm bilaterally and reactive. No scleral icterus. No injection or drainage. NECK: Supple, trachea midline. No JVD or lymphadenopathy. CARDIOVASCULAR: A. fib with RVR, PVCs. S1, S2. No S4. No murmur RESPIRATORY: Breath sounds equal bilaterally. No accessory muscle use. GASTROINTESTINAL: Abdomen soft, non-tender, nondistended. No right upper quadrant tenderness/negative Wyatt sign. Hypoactive bowel sounds. MUSCULOSKELETAL: No significant peripheral edema BACK: Back is tender to bony spinous specifically lumbar palpation : Polyuria with clear dilute urine Neuro: Lethargic, but wakes up, oriented to person. Strength is equal and symmetric bilaterally. Normal sensation. Date of Insertion: April 10, 2017 Line: Central Venous Catheter Side: Right Location: Internal, Jugular A/P Assessment and Plan Neuro/Psych: Acetaminophen for fever only. 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 tach - not a candidate for defibrillator secondary to likely metastatic cancer A. fib with RVR Chronic systolic heart failure baseline ejection fraction 30% currently 45 Left bundle branch block Coronary artery disease Evaluated by Dr. Monte. Recommended beta thuy once stable. Metoprolol 12.5 mg by mouth every 8 hours Continue by mouth Cardizem and wean off IV Cardizem Holding Vasotec 10 mg by mouth daily for hypertension and acute kidney injury. Echocardiogram 03/31 revealed EF 45%. Decreased systolic function. Septal dyssynchrony secondary to left bundle branch block. Mild TR. Nonsustained V TAC most likely from CM. keep mag about 2, potassium above 4. Metoprolol started as above Currently holding Pravachol 80 mg a night due to elevated transaminases. On Zocor 40 mg a night at home. Continue baby aspirin 81 mg by mouth daily Decreased hydrocortisone 50 every 8. Wean off for 1 week total therapy Resp: Acute hypoxemic respiratory failure pNRB to maintain saturations greater than equal to 92% Incentive spirometry while awake As needed bronchodilator therapy Follow-up chest x-ray in a.m. 04/16-unchanged GI: Transaminitis Probable acute cholecystitis Bilirubin decreased from 6-4.5 to 2.4 04/16. CT abdomen/pelvis revealed cholelithiasis. Right renal cyst 4 mm. Bony metastases likely/hypolucency HIDA scan 24 hours revealed no uptake in the gallbladder. Finding consistent with severe hepatocellular dysfunction and cholestatic physiology versus high-grade biliary obstruction MRCP revealed no biliary duct obstruction process. Gallbladder wall thickening with gallstones indicative of acute cholecystitis. Followed by GI/Dr. Heredia. Gen surgery recommendation--patient not a surgical candidate due to clinical condition and low platelet count Would consider cholecystostomy tube placement if RUQ pain occurs and platelet count more stable Hepatitis panel negative Clinical exam DOES NOT support acute cholecystitis : Polyuria with hypernatremia, suspicious for DI possibly central Acute kidney injury likely secondary to renal hypoperfusion and sepsis Severe hypernatremia Check serum was lengthy, urine osmolality, check urine and serum sodium, check UA Check serum ADH level, give this most person is 0.5 micrograms IV 1. Monitor clinical response and repeat ADH level D5W 500 bolus and 250 ml per hour [place] if indicated for accurate I's and O's in a critically ill patient Creatinine currently improving, Accurate I's and O's Endo: Diabetes mellitus Low TSH Sliding-scale to maintain euglycemia/medium regimen. Holding metformin 1000 mg by mouth twice a day TSH was 0.3 on admission. Currently on sliding scale insulin. Heme: Normocytic anemia Thrombocytopenia Elevated PSA Await bone biopsy results PSA was elevated to 53.6. Free PSA was greater than 18. Total PSA was 551. Heparin antibody sent today 04/15 Oncology following ID: Severe sepsis Probable acute cholecystitis Pertinent cultures 04/10 - blood cultures 2 - no growth Continue Zosyn. Followed by Dr. Vogt/ SANDIE MSK: Low back pain likely secondary to metastatic disease PT evaluate and treat. Access - Right IJ CVL placed 04/[address] Palmer Prophylaxis - GI - Protonix - DVT - SCD/Lovenox on hold due to thrombocytopenia CCT 35 Patient remains critically ill with acute respiratory failure, renal failure, atrial fibrillation with RVR. Critically ill now with Probable DI causing confusion and severe hyponatremia Alberto Jain MD Apr 18, 2017 10:52 - DVT - SCD/Lovenox on hold due to thrombocytopenia CCT 35 Patient remains critically ill with acute respiratory failure, renal failure, atrial fibrillation with RVR. Though critically ill he seems to be slowly improving Alberto Jain MD Apr 18, 2017 10:52
[2017-04-18] MEDS ORDERED: DESMOPRESSIN ACETATE 4 MCG/ML VIAL IV PUSH ONE (11:15)
[2017-04-18] MEDS ORDERED: LORazepam 2 MG/ML VIAL IV PRN (12:00)
[2017-04-18] MEDS: PANTOPRAZOLE SODIUM 40 MG VIAL IV PUSH SCH (13:46)
[2017-04-18] MEDS: SODIUM CHLORIDE 0.9% FLUSH 10 ML FLUSH IV FLUSH SCH ×2 (13:48→20:22)
[2017-04-18] MEDS: LORazepam 2 MG/ML VIAL IV PRN (22:55)
[2017-04-19] VITALS (18 sets, daily range): BP systolic 113–148; BP diastolic 60–97; PULSE 68–149; RESP 18–26; TEMP 97.5–98.1; O2SAT 81–100
[2017-04-19] MEDS: DEXTROSE 5% IN WATE 1000ML INJ 1,000 ML IV SCH ×5 (00:51→17:16)
[2017-04-19] MEDS: METOPROLOL TARTRATE 25 MG TAB PO SCH ×2 (04:45→14:07)
[2017-04-19] MEDS: PIPERACIL-TAZO 3.375 GM PREMIX 50 ML IV SCH ×2 (04:45→11:57)
[2017-04-19] MEDS: DILTIAZEM HCL 60 MG TAB PO SCH ×3 (04:45→17:17)
[2017-04-19] MEDS: INSULIN NovoLIN REGULAR SUPPLEMENTAL SCALE SQ SCH ×3 (04:45→17:17)
[2017-04-19] MEDS: HYDROCORTISONE SOD SUCCINATE 100 MG VIAL IV PUSH SCH ×2 (04:45→14:07)
[2017-04-19] MEDS: LORazepam 2 MG/ML VIAL IV PRN (04:47)
[2017-04-19] MEDS: LACTULOSE SYRUP 20 GM/30 ML CUP PO SCH ×4 (08:47→17:17)
[2017-04-19] MEDS: ASPIRIN EC 81 MG TABEC PO SCH ×2 (08:47→09:00)
[2017-04-19] MEDS: SODIUM CHLORIDE 0.9% FLUSH 10 ML FLUSH IV FLUSH SCH (08:47)
[2017-04-19] MEDS: DOCUSATE SODIUM 50 MG/SENNA 8.6 MG TAB PO SCH ×2 (08:47→09:00)
[2017-04-19] MEDS: POLYETHYLENE GLYCOL 17 GM PKG PO SCH ×2 (08:47→09:00)
[2017-04-19] MEDS: SODIUM CHLORIDE 0.9% FLUSH 10 ML FLUSH IV FLUSH PRN (08:47)
[2017-04-19] MEDS: MULTIVITAMINS/MINERALS THERAPEUTIC TAB PO SCH ×2 (08:47→09:00)
[2017-04-19] MEDS ORDERED: RESP: ALBUTEROL 2.5 MG/IPRATROPIUM 0.5 MG NEB (PRN) NEB (10:45)
--- NOTE | 2017-04-19 10:46 | HHI.CCPN ---
Subjective Remarks/Hospital Course Frail, elderly man admitted earlier today with dehydration and general fatigue, recent weight loss. Has developed sustained tachycardia to 130s with increased O2 requirements. Now with worsening hypotension requiring vasopressor support. 04/10 Patient is on Levophed 23 mics. Afebrile. Denies any CP/SOB, N/V abdominal pain 04/11 Patient is on Neosyn and Vasopressin. On 5L oxygen. CT abd/pelvis showed bony mets unclear primary. Afebrile. 04/12 No acute events overnight. Patient is off Neosyn remains on Vasopressin. Afebrile. 04/13 No events overnight. Off all pressors. Afebrile. 04/14: Off all vasopressors. Hemodynamically stable. Plan for bone biopsy right iliac crest today. Noted PSA elevated. On 6 L nasal cannula. Subjective 04/15: A. fib with RVR overnight. Gave 5 mill grams Lopressor that result. Currently in Cardizem drip with Nba-Synephrine with better rate control. Platelets remain low to underlying sepsis 04/16: Remains on pNRB. HR better controlled. Off nba since 0800 am. Episode of V TAC today, patient asymptomatic. Unchanged CXR. Liver enzymes trending up slightly. Alk phos elevation most likely from bone metastases 04/17: Remains on pressors but continues to be on Cardizem infusion. Receiving 1 unit of PRBC. Intermittent nonsustained V. tach. I will place him on metoprolol 12.5 every 8 hours. 04/18: Patient remains polyuric and hypernatremic. Urine output approximately 9 L sodium 166. Clinical picture consistent with GI probably central given history of metastatic cancer. We'll send stat serum and urine osmolality, serum and urine sodium, serum ADH levels. After blood is drawn, give 0.5mcg of DDAVP. Daughter at bedside requests DNR 04/19 Patient is lethargic given Ativan 2mg total. On Partial rebreather. Afebrile. Remains hypernatremic with Na level 166 given DDAVP 0.5 mcg. Objective Vital Signs Date Time Temp Pulse Resp B/P Pulse Ox O2 Delivery O2 Flow Rate FiO2 04/19/17 08:59 94 Partial Rebreather 04/19/17 06:00 77 04/19/17 04:00 97.9 26 140/97 04/17/17 19:02 15.00 Intake and Output 04/18/17 04/18/17 04/19/17 08:00 16:00 00:00 Intake Total 990 ml 2514 ml 2031 ml Output Total 2450 ml 2900 ml 1700 ml Balance -1460 ml -386 ml 331 ml Result Diagram: 04/18/17 0400 04/18/17 0400 Imaging Last Impressions Chest X-Ray 04/18/17 0600 Signed Impressions: Service Date/Time: Tuesday, April 18, 2017 03:36 - CONCLUSION: The examination is slightly limited due to motion artifact, however slight pulmonary edema and left midlung atelectasis is suspected. Abby Denson MD Renal Ultrasound 04/15/17 0000 Signed Impressions: Service Date/Time: April 10:58 - CONCLUSION: 1. No sonographic evidence for renal calculi or obstructive uropathy. 2. Redemonstration of 5.0 x 4.2 x 4.5 cm cyst in the superior pole of the right kidney. Bertrand Coronel MD Bone Biopsy CT 04/14/17 0600 Signed Impressions: Service Date/Time: Friday, April 14, 2017 16:22 - CONCLUSION: Uncomplicated CT guided biopsy. Kartik Santiago MD FACR Cholangiopancreatography MRI 04/14/17 0000 Signed Impressions: Service Date/Time: Friday, April 14, 2017 14:10 - CONCLUSION: 1. Cholelithiasis. Nonspecific gallbladder wall thickening and pericholecystic fluid. Findings can be seen with acute cholecystitis. 2. Common duct is within normal limits for age. 3. Right renal cyst. 4. Small amount of ascites and small bilateral pleural effusions. Robby Geiger MD Hepatobiliary Scan Nuclear Medicine 04/12/17 0000 Signed Impressions: Service Date/Time: Wednesday, April 12, 2017 12:54 - CONCLUSION: No activity within the biliary system or gallbladder at 2 hours. The findings suggest biliary obstruction or hepatocellular dysfunction. Cystic duct patency cannot be assessed without activity in the biliary system. Delayed imaging may be helpful for further evaluation of this patient. Esteban Murphy MD ADDENDUM: On 24 hour delayed scanning, again no activity is identified in the GI tract. No significant activity is present in the biliary tree. Finding would be consistent with severe hepatocellular dysfunction and cholestatic physiology versus high-grade biliary obstruction. Cristobal Cárdenas MD Chest CT 04/10/17 0000 Signed Impressions: Service Date/Time: Monday, April 10, 2017 18:39 - CONCLUSION: Minimal bibasilar parenchymal changes are evident. There is no evidence for a primary carcinoma of the lung. There is mild dilatation of the ascending aorta. Moderate vascular calcifications are noted. There is no pericardial effusion. Review of bone windows reveals what looks like widespread sclerotic metastatic disease. This could be biopsied percutaneously for diagnosis. Prostate would be the most likely diagnosis to cause this. Kartik Santiago MD FACR Abdomen/Pelvis CT 04/10/17 0000 Signed Impressions: Service Date/Time: Monday, April 10, 2017 18:39 - CONCLUSION: 1. 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 The right iliac crest could easily be biopsied percutaneously for diagnosis. 2. Prominent gallbladder with gallstones. 3. Site of primary is not identified. 4. There is no evidence for metastatic disease to the liver. Kartik Santiago MD FACR Liver Ultrasound 04/09/17 0000 Signed Impressions: Service Date/Time: Sunday, April 09, 2017 14:35 - CONCLUSION: 1. Cholelithiasis. 2. Echogenic liver compatible with fatty infiltration or hepatocellular disease. Alexandru Souza MD Objective Remarks GENERAL: 81-year-old male, appears stated age critically ill currently lying in bed SKIN: Warm and dry. HEAD: Normocephalic. EYES: Pupils are about 3 mm bilaterally and reactive. No scleral icterus. No injection or drainage. NECK: Supple, trachea midline. No JVD or lymphadenopathy. CARDIOVASCULAR: A. fib with RVR, PVCs. S1, S2. No S4. No murmur RESPIRATORY: Breath sounds equal bilaterally. No accessory muscle use. GASTROINTESTINAL: Abdomen soft, non-tender, nondistended. No right upper quadrant tenderness/negative Wyatt sign. Hypoactive bowel sounds. MUSCULOSKELETAL: No significant peripheral edema BACK: Back is tender to bony spinous specifically lumbar palpation : Polyuria with clear dilute urine Neuro: Lethargic, but wakes up, oriented to person. Strength is equal and symmetric bilaterally. Normal sensation. Date of Insertion: April 10, 2017 Line: Central Venous Catheter Side: Right Location: Internal, Jugular A/P Assessment and Plan Neuro/Psych: Acetaminophen for fever only. 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 tach - not a candidate for defibrillator secondary to likely metastatic cancer A. fib with RVR Chronic systolic heart failure baseline ejection fraction 30% currently 45 Left bundle branch block Coronary artery disease Evaluated by Dr. Monte. Continue PO Cardizem 60mg Q6, Lopressor 12.5mg Q8 Echocardiogram 03/31 revealed EF 45%. Decreased systolic function. Septal dyssynchrony secondary to left bundle branch block. Mild TR. Currently holding Pravachol 80 mg a night due to elevated transaminases. On Zocor 40 mg a night at home. Continue baby aspirin 81 mg by mouth daily Hydrocortisone 50 every 8. Wean off for 1 week total therapy Resp: Acute hypoxemic respiratory failure Wean down oxygen as no keep sat > 92% Incentive spirometry while awake Bronchodilators, aspiration precautions. GI: Transaminitis Probable acute cholecystitis CT abdomen/pelvis revealed cholelithiasis. Right renal cyst 4 mm. Bony metastases likely/hypolucency HIDA scan 24 hours revealed no uptake in the gallbladder. Finding consistent with severe hepatocellular dysfunction and cholestatic physiology versus high-grade biliary obstruction MRCP revealed no biliary duct obstruction process. Gallbladder wall thickening with gallstones indicative of acute cholecystitis. Followed by GI/Dr. Heredia. Gen surgery recommendation--patient not a surgical candidate due to clinical condition and low platelet count Would consider cholecystostomy tube placement if RUQ pain occurs and platelet count more stable Hepatitis panel negative : Polyuria with hypernatremia, suspicious for DI possibly central Acute kidney injury likely secondary to renal hypoperfusion and sepsis Severe hypernatremia Check serum, urine osmolality, Check serum ADH level, will give DDAVP 0.5 micrograms IV 1. Monitor clinical response and repeat ADH level D5W@ 250 ml per hour Huerta is indicated for accurate I's and O's in a critically ill patient Endo: Diabetes mellitus Low TSH Sliding-scale to maintain euglycemia/medium regimen. Holding metformin 1000 mg by mouth twice a day TSH was 0.3 on admission. Currently on sliding scale insulin. Heme: Normocytic anemia Thrombocytopenia Elevated PSA Await bone biopsy results PSA was elevated to 53.6. Free PSA was greater than 18. Total PSA was 551. Heparin antibody sent today 04/15 Oncology following ID: Severe sepsis Probable acute cholecystitis Pertinent cultures 04/10 - blood cultures 2 - no growth Continue Zosyn. Followed by Dr. Vogt/ ID MSK: Low back pain likely secondary to metastatic disease PT evaluate and treat. Access - Right IJ CVL placed 04/10 Prophylaxis - GI - Protonix - DVT - SCD/Lovenox on hold due to thrombocytopenia Hospice service spoke to family and they elected to proceed with hospice care of PO. level 3 Cherelle Palmer MD Apr 19, 2017 10:46
[2017-04-19 10:57] LABS: HEPARIN INDUCED PLATELET AB NEGATIVE (NEGATIVE)
[2017-04-19] MEDS ORDERED: DESMOPRESSIN ACETATE 4 MCG/ML VIAL IV PUSH ONE (11:00)
--- NOTE | 2017-04-19 11:56 | HHI.PR ---
Subjective Subjective Notes Resting in bed in no acute distress on partial NRB Daughters at bedside; requesting Palliative Care Consult Objective Vitals/I&O Vital Signs Date Time Temp Pulse Resp B/P Pulse Ox O2 Delivery O2 Flow Rate FiO2 04/19/17 08:59 94 Partial Rebreather 04/19/17 06:00 77 04/19/17 04:00 97.9 26 140/97 04/17/17 19:02 15.00 Cardiovascular: Regular Lungs: Clear Abdomen: Non-distended, Non-tender Extremities: No edema A/P Assessment and Plan 81 year old male with elevated PSA; lower back pain; ?? metastatic disease; elevated liver enzymes and radiographic evidence of acute cholecystitis -Abdomen exam continues to be benign -Ptl 62K today -Awaiting bone bx results -Patient not a surgical candidate due to clinical condition and low platelet count -Daughter at bedside requested DNR status yesterday and are requesting Palliative Care consult today -Consult to Palliative Care -General Surgery will sign off as patient is not a surgical candidate -Discussed with Dr. Kuhn Attending Note - Dr. Kuhn Abdomen soft and nontender Discussed care and plan with daughter The exam, history, and the medical decision-making described in the above note were completed with the assistance of the mid-level provider. I reviewed and agree with the findings presented. I attest that I had a [id number] encounter with the patient on the same day, and personally performed and documented my assessment and findings in the medical record. Amarilys Chahal Apr 19, 2017 11:56 Walter Kuhn MD Apr 24, 2017 14:55
[2017-04-19] MEDS: PANTOPRAZOLE SODIUM 40 MG VIAL IV PUSH SCH (11:57)
[2017-04-19] MEDS: RESP: ALBUTEROL 2.5 MG/IPRATROPIUM 0.5 MG NEB (SCH) NEB ×2 (12:00→15:56)
[2017-04-19] MEDS ORDERED: CALCIUM GLUCONATE INJ 1 GM in SODIUM CHLORIDE 0.9% INJ 100 ML IV ONE (12:00)
--- NOTE | 2017-04-19 12:03 | HHI.GIFU ---
Subjective Remarks Pt sleeping, family at bedside. Pt did not wake for exam. Family reports he has made no complaints of pain, no n/v, and has been eating. (Lara Dodson) Objective Vitals I&O Vital Signs Date Time Temp Pulse Resp B/P Pulse Ox O2 Delivery O2 Flow Rate FiO2 04/19/17 08:59 94 Partial Rebreather 04/19/17 06:00 77 04/19/17 04:00 97.9 90 26 140/97 93 04/19/17 04:00 90 04/19/17 02:00 83 04/19/17 00:00 98.1 78 23 142/72 04/19/17 00:00 78 04/18/17 22:00 99 04/18/17 20:00 87 04/18/17 20:00 97.8 87 24 134/60 95 04/18/17 18:00 90 04/18/17 16:00 97.6 91 25 132/84 96 04/18/17 16:00 84 04/18/17 14:00 92 I/O 04/18/17 04/18/17 04/18/17 04/19/17 04/19/17 04/19/17 07:00 15:00 23:00 07:00 15:00 23:00 Intake Total 990 ml 2514 ml 2031 ml 1687 ml Output Total 2450 ml 2900 ml 1700 ml 1300 ml Balance -1460 ml -386 ml 331 ml 387 ml Intake Oral 240 ml 500 ml IV Total 750 ml 2014 ml 2031 ml 1687 ml Output Urine Total 2450 ml 2900 ml 1700 ml 1300 ml # Bowel Movements 0 1 0 0 Physical Exam HEENT: Cachectic CHEST: Chest is clear to auscultation and percussion. CARDIAC: Regular rate and rhythm with no murmur gallop or rubs. ABDOMEN: Soft, nondistended, nontender; no hepatosplenomegaly; bowel sounds are present in all four quadrants. EXTREMITIES: No clubbing, cyanosis, or edema. Neurology: somnolent (Lara Dodson) Assessment and Plan Plan ASSESSMENT: - Bone mets and unknown primary, asymptomatic. bone bx pending - Elevated LFTs. Improving likely hypoperfusion related (Hepatocellular insult) or cholecystitis. HIDA scan results noted. LETI neg, AMA neg. ASMA neg. Hep neg. MRCP --> Cholelithiasis. Nonspecific gallbladder wall thickening and pericholecystic fluid. Findings can be seen with acute cholecystitis. 2. Common duct is within normal limits for age. 3. Right renal cyst. 4. Small amount of ascites and small bilateral pleural effusions. - Weight loss and poor appetite, - Cholecystitis- GS on the case, patient not a candidate for surg. rhonda tube in the consideration if patient develops pain and plt stable - Possible sepsis/lactic acidosis/hypotension/tachycardia, etiology unclear. Pt is on Zosyn and Levaquin. No fever or elevated WBC count. Management per CCM. - Diabetes mellitus, CHF with reported EF 30%. Management per attending. PLAN: - Heart healthy diet - GS on the case - Monitor LFTs - Further recommendations as the case develops This pt seen by myself and Dr Heredia and this note is written on his behalf ( Lara Dodson) Physician Comments Seen and examined, plan as above. Will sign off for now, please notify us if needed, (Thea Heredia MD) Lara Dodson Apr 19, 2017 12:03 Thea Heredia MD Apr 19, 2017 14:03
--- NOTE | 2017-04-19 13:32 | PD.ONC.PN ---
Subjective Subjective Remarks Afebrile overnight. Patient lethargic and confused. On partial rebreather. Three children at bedside. Objective Data Date Time Temp Pulse Resp B/P Pulse Ox O2 Delivery O2 Flow Rate FiO2 04/19/17 08:59 94 Partial Rebreather 04/19/17 06:00 77 04/19/17 04:00 97.9 90 26 140/97 93 04/19/17 04:00 90 04/19/17 02:00 83 04/19/17 00:00 98.1 78 23 142/72 04/19/17 00:00 78 04/18/17 22:00 99 04/18/17 20:00 87 04/18/17 20:00 97.8 87 24 134/60 95 04/18/17 18:00 90 04/18/17 16:00 97.6 91 25 132/84 96 04/18/17 16:00 84 04/18/17 14:00 92 04/19/17 04/19/17 04/19/17 07:00 15:00 23:00 Intake Total 1687 ml Output Total 1300 ml Balance 387 ml Result Diagram: 04/18/17 0400 04/18/17 0400 Administered Medications Medications (Trade) Dose Ordered Sig/John Route PRN Reason Start Time Stop Time Status Last Admin Dose Admin Aspirin (Ecotrin Ec) 81 mg DAILY PO 04/10/17 09:00 04/10/17 09:02 Multivitamins/ Minerals Therapeutic (Theragran M Tab) 1 tab DAILY PO 04/10/17 09:00 04/17/17 09:40 Pravastatin Sodium (Pravachol) 80 mg HS PO 04/09/17 21:00 Hold 04/09/17 19:47 Sodium Chloride (NS Flush) 2 ml UNSCH PRN IV FLUSH FLUSH AFTER USING IV ACCESS 04/09/17 13:45 04/19/17 08:47 Sodium Chloride (NS Flush) 2 ml BID IV FLUSH 04/09/17 21:00 04/19/17 08:47 Acetaminophen (Tylenol) 650 mg Q4H PRN PO TEMP > 100.4 04/09/17 13:45 04/17/17 05:21 Ondansetron HCl (Zofran Inj) 4 mg Q6H PRN IVP NAUSEA OR VOMITING 04/09/17 13:45 04/09/17 20:27 Senna/Docusate Sodium (Kylee-Colace) 1 tab BID PO 04/09/17 21:00 04/16/17 21:17 Magnesium Hydroxide (Milk Of [place] Liq) 30 ml Q12H PRN PO MILD - MODERATE CONSTIPATION 04/09/17 13:45 04/09/17 22:15 Sennosides (Senokot) 17.2 mg Q12H PRN PO MODERATE - SEVERE CONSTIPATION 04/09/17 13:45 04/12/17 09:27 Enoxaparin Sodium (Lovenox Inj) 30 mg Q24H SQ 04/09/17 15:00 Hold 04/10/17 16:45 Pantoprazole Sodium (Protonix Inj) 40 mg Q24H IV PUSH 04/10/17 10:45 04/19/17 11:57 Insulin Human Regular 1 1 Q6H SQ 04/10/17 11:15 04/19/17 12:37 Potassium Chloride (KCl 40 Meq Premix Inj) 100 ml @ 50 mls/hr Q2H PRN IV-CENTRAL For Potassium 2.8 - 3.2 mEq/L 04/12/17 07:30 04/18/17 14:11 Potassium Phosphate 2000 mg 2,000 mg Q4H PRN PO For Phosphorus < 2.5 mg/dL 04/12/17 07:30 04/14/17 05:35 Sodium Phosphate/ Sodium Chloride (Sodium Phosphate Inj/NS 250 ml Inj) 250 ml @ 42 mls/hr UNSCH PRN IV For Phosphorus < 2.5 mg/dL 04/12/17 07:30 04/13/17 19:33 Hydrocortisone Sodium Succinate (SoluCORTEF INJ) 50 mg Q8HR IV PUSH 04/14/17 14:00 04/19/17 04:45 Polyethylene Glycol (Miralax) 17 gm BID PO 04/14/17 09:30 04/15/17 20:48 Lactulose 30 ml 30 ml QID PO 04/14/17 13:00 04/18/17 13:00 Phenylephrine HCl/ Dextrose (Neosynephrine Inj/D5W 500 ml Inj) 500 ml @ 0 mls/hr TITRATE IV 04/15/17 08:45 04/15/17 09:15 Metoprolol Tartrate (Lopressor) 12.5 mg Q8HR PO 04/17/17 14:00 04/19/17 04:45 Diltiazem HCl 60 mg 60 mg Q6HR PO 04/17/17 12:00 04/19/17 11:57 Dextrose 1,000 ml @ 250 mls/hr Q4H IV 04/17/17 20:00 04/19/17 09:29 Piperacillin Sod/ Tazobactam Sod (Zosyn 3.375 Gm Premix) 50 ml @ 100 mls/hr Q6H IV 04/19/17 00:00 04/19/17 11:57 Lorazepam (Ativan Inj) 1 mg Q4H PRN IV AGITATION 04/18/17 23:00 04/19/17 04:47 Objective Remarks GENERAL: Elderly male, supine in bed, sleeping on approach. SKIN: Warm and dry. HEAD: Normocephalic. EYES: No injection or drainage. NECK: Supple, trachea midline. CARDIOVASCULAR: +S1/S2 RESPIRATORY: on partial rebreather. scattered rhonchi. GASTROINTESTINAL: Abdomen soft, non-tender, nondistended. EXTREMITIES: No cyanosis NEUROLOGICAL: lethargic but awake. Assessment/Plan Problem List: (1) Bony metastasis Status: Acute Plan: --PSA elevated at 252. CA19-9 WNL --s/p biopsy of ilium--pathology pending. --CT ab/pelvis shows widespread bony metastatic disease (2) Thrombocytopenia Status: Acute Plan: --likely secondary to sepsis. --monitor, no transfusion necessary at present. (3) Transaminitis Status: Acute Plan: --Transaminitis and hyperbilirubinemia --HIDA scan shows possible biliary obstruction --Liver US, 04/09: + cholelithiasis and echogenic liver --CT ab/pelvis shows no evidence of liver mets --surgery following for question of cholecystitis, patient not having RUQ pain-- >patient not a candidate for any type of intervention due to his debilitated status (4) Normocytic anemia Status: Acute Plan: --Anemia studies show anemia of chronic inflammation with elevated ferritin. --Serum iron is low and iron saturation is also somewhat low. --no evidence of hemolysis. Haptoglobin normal Assessment 81-year-old male with past medical history of hypertension, coronary artery disease, congestive heart failure who presents to the emergency room with a two to three week history of anorexia, fatigue, and significant weight loss of 40 pounds who is now admitted to the ICU for sepsis and hypotension. 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 Plan 1. monitor CBC, coags 2. d/w children, we are waiting on bone biopsy, suspect prostate cancer. Attending Statement The exam, history, and the medical decision-making described in the above note were completed with the assistance of the mid-level provider. I reviewed and agree with the findings presented. I attest that I had a [id number] encounter with the patient on the same day, and personally performed and documented my assessment and findings in the medical record Biopsy consistent with metastatic prostate cancer Family considering hospice given multiple other medical issues. Bibiana Colin Apr 19, 2017 13:32 Sean Curry MD Apr 20, 2017 00:36
[2017-04-19 15:29] LABS: BLOOD, URINE NEG (NEG); COMMENT (UR) CULT NOT INDICATED; CULTURE IF INDICATED CULT NOT INDICATED; GLUCOSE,URINE 1000 mg/dL (NEG); KETONE, URINE NEG (NEG); NITRITE,URINE NEG (NEG); PH, URINE 5.5 (5.0-8.5); URINE COLOR LIGHT-YELLOW (YELLW/STRAW)
[2017-04-19 15:56] LABS: AUTOMATED NEUTROPHIL # 7.3 TH/MM3 (1.8-7.7); BASOPHIL % 0.1 % (0.0-2.0); EOSINOPHIL % 0.4 % (0.0-4.0); LYMPH % 12.3 % (9.0-44.0); LYMPHOCYTE # 1.1 TH/MM3 (1.0-4.8); MEAN CELL VOLUME 83.4 FL (80.0-100.0); MEAN CORPUSCULAR HEMOGLOBIN 27.5 PG (27.0-34.0); MONO % 4.6 % (0.0-8.0); NEUT % 82.6 % (16.0-70.0); PLATELET COUNT 43 TH/MM3 (150-450); RED BLOOD COUNT 2.87 MIL/MM3 (4.50-5.90); RED CELL DISTRIBUTION WIDTH 17.4 % (11.6-17.2); WHITE BLOOD COUNT 8.8 TH/MM3 (4.0-11.0)
[2017-04-19 16:00] LABS: HEMO FLAGS AUTO DIFF
[2017-04-19 16:18] LABS: POTASSIUM 2.6 MEQ/L (3.5-5.1)
[2017-04-19 16:19] LABS: APTT (PATIENT) 26.8 SEC (24.3-30.1); INTERNATIONAL NORMALIZED RATIO 1.2 RATIO
[2017-04-19] MEDS: POTASSIUM CHLOR 40 MEQ PREMIX 100 ML IV-CENTRAL PRN (16:28)
[2017-04-19 16:34] LABS: BANDS 17 % (0-6); CORRECTED NUCLEATED RBC 5 /100 WBC (0-0); NEUTROPHIL # MANUAL DIFF 7.6 TH/MM3 (1.8-7.7); PLATELET ESTIMATE SMEAR LOW (NORMAL); PLATELET MORPHOLOGY NORMAL (NORMAL); POLYS (SEG NEUTROPHILS) 69 % (16-70); WBC DIFF SAMPLE 100
[2017-04-19 16:35] LABS: SCAN/DIFF FINAL DIFF MANUAL
--- NOTE | 2017-04-19 16:36 | PD.CONS ---
Consult Service Palliative Care . Consult Requested By Dr. Kuhn/ HERNAN Cason . Primary Care Physician Unknown . Reason for Consultation a. To assist with evaluation and management of symptoms including: dyspnea, lethargy, pain, weakness. b. To assist medical decision maker(s) with: better understanding of current medical conditions; weighing benefits/burdens of medical treatment options; making medical treatment decisions. . HPI History of Present Illness Mr. Luis is a 81 year old male with past medical history of coronary artery disease, CHF, prior EF 30%, type 2 diabetes. He reported he was scheduled for pacemaker/ defibrillator placement with Dr. Pa on 04/15/17. Present to [facility] ER on 04/09/17 with generalized weakness, 40 pound weight loss, anorexia, and fatigue. Patient reported he had lost his appetite 2 weeks ago has not been eating much. Also reported in the week or so prior to presentation he had mid-abdominal discomfort, unable to further qualify. LBM 3 days prior. Denied nausea/vomiting, diarrhea, fevers or chills. Initial evaluation revealed: * WBC count was stable at admission. * LFTs elevated - Alk Phos was 3613, AST 99, ALT 15, and T. bilirubin was 1.5. * Tumor markers: PSA , CEA 4,6, CA 19-9 24.3, and AFP was 0.8. * Lactic acid 2.6 On 04/10/17, he was transferred to [facility] with sustained tachycardia into the 130s with increased O2 requirements and hypotension requiring vasopressor support. Lactic acid increased 3.5. Liver US noted cholelithiasis and echogenic liver compatible with fatty infiltration or hepatocellular disease. General surgery has been consulted and indicates no plan for surgery or cholecystostomy tube as he is thrombocytopenic and remains asymptomatic, they have signed off. Repeat LFTs revealed T. bili 4.6, D. Bili 2.5, I. Bili 2.1, AST 258, ALT 103, Alk Phos 2740. Echocardiogram revealed EF 45%, trace to mild mitral and tricuspid regurgitation. CT chest revealed bibasilar parenchymal changes, no evidence of primary carcinoma of the lung, mild dilatation of the descending aorta, moderate vascular calcifications, no pericardial effusion widespread sclerotic metastatic disease. CT abdomen/ pelvis revealed probable widespread bony metastatic disease, right iliac crest could be easily biopsied for diagnosis, prominent gallbladder with gallstones, no evidence of metastatic disease to the liver and no primary site identified. Patient underwent right ilium on 04/15/17, pathology positive metastatic prostate cancer. Hospital course has been complicated by diabetes insipidus, hypernatremia, thrombocytopenia, asymptomatic V. Tach (not currently a candidate for defibrillator per Cardiology). Patient is more confused, lethargic. Chest x-ray with more pulmonary edema and left midlung atelectasis. Family declined MRI brain today per nurse. Palliative care was consulted to assist with further clarification of treatment goals. Function/Cognitive Trajectory Has had ongoing decline. Family feels he has been declining, but not wanting to find out why or what was wrong. He had 40 pound weight loss in the weeks prior to admission. Decreased appetite and was "slowing down quite a bit." . Review of Systems ROS Limitations: Altered Mental Status (lethargy) Constitutional: COMPLAINS OF: Fatigue, Weight loss, Change in appetite ( decreased) Respiratory: COMPLAINS OF: Shortness of breath Cardiovascular: COMPLAINS OF: Dyspnea on Exertion Hematologic/Lymphatics: COMPLAINS OF: Bruising Past Family Social History Coded Allergies: No Known Allergies (Verified Allergy, Unknown, 02/04/06) Past Medical History Coronary artery disease Congestive heart failure with reported EF of 30% Diabetes mellitus Past Surgical History Ventral hernia repair with mesh Reported Medications Reported Aspirin Adult Low Strength (Aspirin) 81 Mg Tabdr 81 Mg PO DAILY Centrum Silver Adult 50+ (Multiple Vitamins W/ Minerals) 1 Tab Tab 1 Tab PO DAILY Metformin (Metformin HCl) 1,000 Mg Tab 1,000 Mg PO BID With meals Zocor (Simvastatin) 40 Mg Tab 40 Mg PO HS Vasotec (Enalapril Maleate) 10 Mg Tab 10 Mg PO DAILY Coreg (Carvedilol) 3.125 Mg Tab 3.125 Mg PO BID . Current Medications Medications (Trade) Dose Ordered Sig/John Route Start Time Stop Time Status Last Admin (Ecotrin Ec) 81 mg DAILY PO 04/10/17 09:00 04/10/17 09:02 (Theragran M Tab) 1 tab DAILY PO 04/10/17 09:00 04/17/17 09:40 (Pravachol) 80 mg HS PO 04/09/17 21:00 Hold 04/09/17 19:47 (NS Flush) 2 ml UNSCH PRN IV FLUSH 5/26/17 13:45 04/19/17 08:47 (NS Flush) 2 ml BID IV FLUSH 04/09/17 21:00 04/19/17 08:47 (Tylenol) 650 mg Q4H PRN PO 04/09/17 13:45 04/17/17 05:21 (Zofran Inj) 4 mg Q6H PRN IVP 04/09/17 13:45 04/09/17 20:27 (Narcan Inj) 0.4 mg UNSCH PRN IV 04/09/17 13:45 (Kylee-Colace) 1 tab BID PO 04/09/17 21:00 04/16/17 21:17 (Milk Of Magnesia Liq) 30 ml Q12H PRN PO 04/09/17 13:45 04/09/17 22:15 (Senokot) 17.2 mg Q12H PRN PO 04/09/17 13:45 04/12/17 09:27 (Dulcolax Supp) 10 mg DAILY PRN RECTAL 04/09/17 13:45 (Lovenox Inj) 30 mg Q24H SQ 04/09/17 15:00 Hold 04/10/17 16:45 (Glucagon Inj) 1 mg UNSCH PRN OTHER 04/09/17 14:30 Miscellaneous Information Patient in critical care unit? Ass... Q361D .XX 04/10/17 06:30 (Protonix Inj) 40 mg Q24H IV PUSH 04/10/17 10:45 04/19/17 11:57 Insulin Human Regular 1 1 Q6H SQ 04/10/17 11:15 04/19/17 12:37 Potassium Chloride 100 ml @ 50 mls/hr Q2H PRN IV-CENTRAL 04/12/17 07:30 04/18/17 14:11 (KCl 20 Meq Premix Inj) 100 ml @ 50 mls/hr Q2H PRN IV 04/12/17 07:30 Potassium Bicarb/ Potassium Chloride 50 meq 50 meq UNSCH PRN PO 04/12/17 07:30 Potassium Chloride 100 ml @ 25 mls/hr UNSCH PRN IV-CENTRAL 04/12/17 07:30 Potassium Chloride 100 ml @ 50 mls/hr Q2H PRN IV 04/12/17 07:30 (Magnesium Sulfate Inj/NS Inj) 100 ml @ 50 mls/hr UNSCH PRN IV 04/12/17 07:30 Magnesium Oxide 800 mg 800 mg UNSCH PRN PO 04/12/17 07:30 (Magnesium Sulfate Inj/NS Inj) 100 ml @ 50 mls/hr UNSCH PRN IV 04/12/17 07:30 Potassium Phosphate 2000 mg 2,000 mg Q4H PRN PO 04/12/17 07:30 04/14/17 05:35 (Sodium Phosphate Inj/NS 250 ml Inj) 250 ml @ 42 mls/hr UNSCH PRN IV 04/12/17 07:30 04/13/17 19:33 (K-Phos) 2,000 mg UNSCH PRN PO/TUBE 04/12/17 07:30 (SoluCORTEF INJ) 50 mg Q8HR IV PUSH 04/14/17 14:00 04/19/17 14:07 (Miralax) 17 gm BID PO 04/14/17 09:30 04/15/17 20:48 (Lactulose Liq) 30 ml QID PO 04/14/17 13:00 04/19/17 14:07 (Glycerin Adult Supp) 2 gm BID PRN RECTAL 04/14/17 21:00 Terbutaline Sulfate 1 mg 1 mg UNSCH PRN SQ 04/15/17 08:45 (Neosynephrine Inj/D5W 500 ml Inj) 500 ml @ 0 mls/hr TITRATE IV 04/15/17 08:45 04/15/17 09:15 (Lopressor) 12.5 mg Q8HR PO 04/17/17 14:00 04/19/17 14:07 (Cardizem) 60 mg Q6HR PO 04/17/17 12:00 04/19/17 11:57 Miscellaneous 1 ea 1 ea UNSCH PRN OTHER 04/17/17 11:30 (D5W 1000 ml Inj) 1,000 ml @ 250 mls/hr Q4H IV 04/17/17 20:00 04/19/17 14:00 Dextrose 150 ml 150 ml UNSCH PRN IV 04/18/17 10:45 (Zosyn 3.375 Gm Premix) 50 ml @ 100 mls/hr Q6H IV 04/19/17 00:00 04/19/17 11:57 (Ativan Inj) 1 mg Q4H PRN IV 04/18/17 23:00 04/19/17 04:47 . Family History Patient stated that his father at the age of 50 due to [place]. Substance Use Tobacco: Never smoked. Alcohol: None. Prescription med abuse: None. Illicits: None. . Psychosocial History . Lives alone. Has 3 children that live in [place]. . Spiritual/Cultural Factors Unknown. . Living Will: Never completed Health Care Surrogate: Never completed Durable Power of Shank Archer: Never completed Today's verbally stated goals: Patient arouses briefly, wants me to speak with his family. . Family/friends goals: Awaiting arrival of family to return to hospital for family meeting. . Ethical and Legal Issues No written advanced directives, according to [place] Statutes, health care proxy decision making falls to majority of adult children. . Physical Exam Vital Signs Date Time Temp Pulse Resp B/P Pulse Ox O2 Delivery O2 Flow Rate FiO2 04/19/17 13:00 81 21 126/61 95 04/19/17 12:00 85 04/19/17 12:00 97.6 85 22 148/81 94 04/19/17 11:00 80 20 131/68 96 04/19/17 10:00 83 04/19/17 10:00 149 21 136/72 94 04/19/17 09:00 81 21 121/74 85 04/19/17 08:59 94 Partial Rebreather 04/19/17 08:00 77 04/19/17 08:00 97.5 73 18 123/64 04/19/17 07:00 75 20 141/76 04/19/17 06:00 77 04/19/17 06:00 77 20 146/72 100 04/19/17 05:00 78 26 144/69 97 04/19/17 04:00 97.9 90 26 140/97 93 04/19/17 04:00 90 04/19/17 02:00 83 04/19/17 00:00 98.1 78 23 142/72 04/19/17 00:00 78 04/18/17 22:00 99 04/18/17 20:00 87 04/18/17 20:00 97.8 87 24 134/60 95 04/18/17 18:00 90 04/18/17 16:00 97.6 91 25 132/84 96 04/18/17 16:00 84 04/18/17 04/19/17 19:00 07:00 Intake Total 2514 ml 3718 ml Output Total 2900 ml 3000 ml Balance -386 ml 718 ml Intake Oral 500 ml IV Total 2014 ml 3718 ml Output Urine Total 2900 ml 3000 ml # Bowel Movements 1 0 Exam CONSTITUTIONAL/GENERAL: This is an elderly frail critically ill patient, in no apparent distress. TUBES/LINES/DRAINS: oxygen via mask, central line, [place]. SKIN: No jaundice, rashes, or lesions. Ecchymoses on upper extremities. No wounds seen anteriorly. Skin temperature appropriate. Not diaphoretic. HEAD: Atraumatic. Normocephalic. EYES: Opens eyes briefly. ENT: Hearing grossly normal. Mouth dry. NECK: Trachea midline. CARDIOVASCULAR: Tachycardic. RESPIRATORY/CHEST: Symmetric, unlabored respiration on mask. GASTROINTESTINAL: Abdomen soft, non-tender, nondistended. No guarding. Bowel sounds hypoactive. GENITOURINARY: Without palpable bladder distension. Huerta catheter in place. MUSCULOSKELETAL: Extremities with trace edema. No mottling or clubbing. LYMPHATICS: No palpable cervical or supraclavicular adenopathy. NEUROLOGICAL: Awakens briefly. Difficulty staying awake. Moves all extremities. PSYCHIATRIC: No obvious anxiety/depression. no apparent hallucinations or other psychotic thought process. . Diagnostic Tests Laboratory Laboratory Tests Test 04/16/17 04/17/17 04/17/17 04/17/17 21:41 01:34 10:50 17:55 Blood Type O POSITIVE O POSITIVE Antibody Screen NEGATIVE Crossmatch Leukocyte-Reduced Red Blood Cells Blood Bank Comment Sodium Level 162 MEQ/L 165 MEQ/L (136-145) (136-145) Potassium Level 3.2 MEQ/L 3.1 MEQ/L (3.5-5.1) (3.5-5.1) Chloride Level 127 MEQ/L 126 MEQ/L (98-107) (98-107) Carbon Dioxide Level 25.8 MEQ/L 28.6 MEQ/L (21.0-32.0) (21.0-32.0) Anion Gap 9 MEQ/L (5-15) 10 MEQ/L (5-15) Blood Urea Nitrogen 25 MG/DL (7-18) 24 MG/DL (7-18) Creatinine 1.19 MG/DL 1.09 MG/DL (0.60-1.30) (0.60-1.30) Estimat Glomerular Filtration 59 ML/MIN (>89) 65 ML/MIN (>89) Rate Random Glucose 255 MG/DL 170 MG/DL (74-106) (74-106) Calcium Level 7.1 MG/DL 7.6 MG/DL (8.5-10.1) (8.5-10.1) Protein Corrected Calcium 8.2 MG/DL (8.5-10.1) Magnesium Level 1.7 MG/DL (1.5-2.5) Total Bilirubin 2.7 MG/DL (0.2-1.0) Aspartate Amino Transf 124 U/L (15-37) (AST/SGOT) Alanine Aminotransferase 83 U/L (12-78) (ALT/SGPT) Alkaline Phosphatase 4754 U/L (45-117) Total Protein 5.1 GM/DL (6.4-8.2) Albumin 2.1 GM/DL (3.4-5.0) Test 04/17/17 04/18/17 04/19/17 19:15 04:00 13:15 Hemoglobin 9.6 GM/DL 10.2 GM/DL (13.0-17.0) (13.0-17.0) Hematocrit 28.2 % 29.7 % (39.0-51.0) (39.0-51.0) White Blood Count 12.4 TH/MM3 (4.0-11.0) Red Blood Count 3.63 MIL/MM3 (4.50-5.90) Mean Corpuscular Volume 81.6 FL (80.0-100.0) Mean Corpuscular Hemoglobin 28.1 PG (27.0-34.0) Mean Corpuscular Hemoglobin 34.5 % Concent (32.0-36.0) Red Cell Distribution Width 17.3 % (11.6-17.2) Platelet Count 62 TH/MM3 (150-450) Mean Platelet Volume 9.7 FL (7.0-11.0) Neutrophils (%) (Auto) % (16.0-70.0) Lymphocytes (%) (Auto) % (9.0-44.0) Monocytes (%) (Auto) % (0.0-8.0) Eosinophils (%) (Auto) % (0.0-4.0) Basophils (%) (Auto) % (0.0-2.0) Neutrophils # (Auto) TH/MM3 (1.8-7.7) Lymphocytes # (Auto) TH/MM3 (1.0-4.8) Monocytes # (Auto) TH/MM3 (0-0.9) Eosinophils # (Auto) TH/MM3 (0-0.4) Basophils # (Auto) TH/MM3 (0-0.2) CBC Comment AUTO DIFF Differential Total Cells 100 Counted Neutrophils % (Manual) 64 % (16-70) Band Neutrophils % 9 % (0-6) Lymphocytes % 14 % (9-44) Monocytes % 4 % (0-8) Neutrophils # (Manual) 10.2 TH/MM3 (1.8-7.7) Metamyelocytes 3 % (0-1) Myelocytes 6 % (0-0) Nucleated Red Blood Cells 11 /100 WBC (0-0) Differential Comment FINAL DIFF MANUAL Platelet Estimate LOW (NORMAL) Platelet Morphology Comment ENLARGED (NORMAL) Sodium Level 166 MEQ/L (136-145) Potassium Level 2.8 MEQ/L (3.5-5.1) Chloride Level 125 MEQ/L (98-107) Carbon Dioxide Level 31.2 MEQ/L (21.0-32.0) Anion Gap 10 MEQ/L (5-15) Blood Urea Nitrogen 21 MG/DL (7-18) Creatinine 1.15 MG/DL (0.60-1.30) Estimat Glomerular Filtration 61 ML/MIN (>89) Rate Random Glucose 230 MG/DL (74-106) Calcium Level 7.3 MG/DL (8.5-10.1) Protein Corrected Calcium 8.3 MG/DL (8.5-10.1) Magnesium Level 1.7 MG/DL (1.5-2.5) Total Bilirubin 2.8 MG/DL (0.2-1.0) Aspartate Amino Transf 83 U/L (15-37) (AST/SGOT) Alanine Aminotransferase 75 U/L (12-78) (ALT/SGPT) Alkaline Phosphatase 4224 U/L (45-117) Total Protein 5.3 GM/DL (6.4-8.2) Albumin 2.2 GM/DL (3.4-5.0) Urine Color LIGHT-YELLOW (YELLW/STRAW) Urine Turbidity CLEAR (CLEAR) Urine pH 5.5 (5.0-8.5) Urine Specific [place] 1.015 (1.002-1.035) Urine Protein NEG mg/dL (NEG-TRACE) Urine Glucose (UA) 1000 mg/dL (NEG) Urine Ketones NEG mg/dL (NEG) Urine Occult Blood NEG (NEG) Urine Nitrite NEG (NEG) Urine Bilirubin NEG (NEG) Urine Urobilinogen LESS THAN 2.0 MG/DL (LESS THAN 2.0) Urine Leukocyte Esterase NEG (NEG) Urine RBC 5 /hpf (0-3) Urine WBC 1 /hpf (0-5) Urine Yeast (Budding) FEW (NONE) Microscopic Urinalysis Comment CULT NOT INDICATED Urine Osmolality 496 MOSM/KG (300-1300) Serum Osmolality 303 MOSM/KG (275-295) Result Diagram: 04/18/17 0400 04/18/17 0400 Imaging Last Impressions Chest X-Ray 04/18/17 06 Signed Impressions: Service Date/Time: Tuesday, April 18, 2017 03:36 - CONCLUSION: The examination is slightly limited due to motion artifact, however slight pulmonary edema and left midlung atelectasis is suspected. K. Coy Denson MD Renal Ultrasound 04/15/17 0000 Signed Impressions: Service Date/Time: April 10:58 - CONCLUSION: 1. No sonographic evidence for renal calculi or obstructive uropathy. 2. Redemonstration of 5.0 x 4.2 x 4.5 cm cyst in the superior pole of the right kidney. Bertrand Coronel MD Bone Biopsy CT 04/14/17 0600 Signed Impressions: Service Date/Time: Friday, April 14, 2017 16:22 - CONCLUSION: Uncomplicated CT guided biopsy. Kartik Santiago MD FACR Cholangiopancreatography MRI 04/14/17 0000 Signed Impressions: Service Date/Time: Friday, April 14, 2017 14:10 - CONCLUSION: 1. Cholelithiasis. Nonspecific gallbladder wall thickening and pericholecystic fluid. Findings can be seen with acute cholecystitis. 2. Common duct is within normal limits for age. 3. Right renal cyst. 4. Small amount of ascites and small bilateral pleural effusions. Robby Geiger MD Hepatobiliary Scan Nuclear Medicine 04/12/17 0000 Signed Impressions: Service Date/Time: Wednesday, April 12, 2017 12:54 - CONCLUSION: No activity within the biliary system or gallbladder at 2 hours. The findings suggest biliary obstruction or hepatocellular dysfunction. Cystic duct patency cannot be assessed without activity in the biliary system. Delayed imaging may be helpful for further evaluation of this patient. Esteban Murphy MD ADDENDUM: On 24 hour delayed scanning, again no activity is identified in the GI tract. No significant activity is present in the biliary tree. Finding would be consistent with severe hepatocellular dysfunction and cholestatic physiology versus high-grade biliary obstruction. Cristobal Cárdenas MD Chest CT 04/10/17 0000 Signed Impressions: Service Date/Time: Monday, April 10, 2017 18:39 - CONCLUSION: Minimal bibasilar parenchymal changes are evident. There is no evidence for a primary carcinoma of the lung. There is mild dilatation of the ascending aorta. Moderate vascular calcifications are noted. There is no pericardial effusion. Review of bone windows reveals what looks like widespread sclerotic metastatic disease. This could be biopsied percutaneously for diagnosis. Prostate would be the most likely diagnosis to cause this. Kartik Santiago MD FACR Abdomen/Pelvis CT 04/10/17 0000 Signed Impressions: Service Date/Time: Monday, April 10, 2017 18:39 - CONCLUSION: 1. 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 The right iliac crest could easily be biopsied percutaneously for diagnosis. 2. Prominent gallbladder with gallstones. 3. Site of primary is not identified. 4. There is no evidence for metastatic disease to the liver. Kartik Santiago MD FACR Liver Ultrasound 04/09/17 0000 Signed Impressions: Service Date/Time: Sunday, April 09, 2017 14:35 - CONCLUSION: 1. Cholelithiasis. 2. Echogenic liver compatible with fatty infiltration or hepatocellular disease. Alexandru Souza MD . Procedures * Biopsy right ilium - metastatic prostate adenocarcinoma. . Patient/Family Conference Present at Family Conference: Met with patient briefly, he advises me to speak with his children. Met with 2 daughters and 1 son in consult room. . Family Conference Time (mins): 60 Family Conference Location: Bedside, Consult Room Issues Discussed: * Palliative care role, purpose, approach * Additional medical, psychosocial, and spiritual history * Patients general health, functional status, and cognitive changes in the months leading up to the current hospitalization * Patient/family understanding of the current medical problems * Patient/family understanding of prognosis * Patients goals of care as best understood from advance directives and/or conversations and/or values * Current medical treatment options and benefits/burdens of those options * Likely scenarios comparing ongoing aggressive care with a transition to comfort measures only * Questions answered to the best of my ability * Palliative care contact information provided In summary, desires comfort focused care with hospice support. . Assessment and Plan Disease Oriented Problem List: (1) Prostate cancer metastatic to bone (2) Transaminitis (3) Malnutrition (4) Normocytic anemia (5) Thrombocytopenia (6) Elevated alkaline phosphatase level (7) Bandemia without diagnosis of specific infection (8) Weakness (9) Hyperbilirubinemia (10) Anemia (11) V tach Symptom Scale: (1) Weakness 0-10 Scale: Unable to quantify (2) Pain 0-10 Scale: 0 Comment: denied during my visit (3) Dyspnea 0-10 Scale: Unable to quantify Comment: on oxygen vis partial rebreather. (4) Lethargy 0-10 Scale: 10 Comment: arousable, falls off to sleep easily. Pertinent Non-Medical Issues Psychosocial: . Has 4 children (3 daughters and 1 son). 3 children are here from [place]. Spiritual: Unknown. Legal: No written advanced directives, according to [place] Statutes, health care proxy decision making falls to majority of adult children. Ethical issues impacting care: No known concerns at this time. . Important Contacts * Tristan Luis, son: [phone] * Rola Luis, daughter: [phone] * Marlin, daughter: * Faisal Allen, friend: [phone] . Prognosis Overall prognosis poor, hospice appropriate, desires to stop all aggressive treatment and transition to comfort measures. . Code Status: No Code Plan * No written advanced directives, according to [place] Stat[place], health care proxy decision making falls to majority of adult children (has 4 children, 2 daughters and 1 son currently here from [place]). * NO CODE. * Spoke with patient, he wants me to speak with his children. Met with 3 children at bedside, they are all in agreement that patient is ready to go (as he has been telling them for days), he wants oxygen off and to be allowed to pass when it is his time. They desire transition to comfort measures with hospice support. Desire care center placement ([facility] or [place] [facility]) for management of pain and respiratory distress. Patient lives alone, family here from [place]. Has mets prostate cancer to bone, elevated LFTs, hypernatremia and DI. * Palliative care number provided. * Palliative care will be available as needed. . Thank you for the opportunity to participate in the care of Mr. Luis. Attestation To help prompt me to consider important information that might be impacting today's encounter and assessment, information from prior notes written by myself or my colleagues may have been "brought forward" into today's note. My signature on this note, however, is an attestation that I personally performed the exam, history, and/or decision-making noted today, and, unless otherwise indicated, the interactions with patient, family, and staff as well as the review of records all occurred today. I also attest that the listed assessment and stated plan reflect my best clinical judgment today based on the combination of historical information, prior notes, and today's exam/ interactions. When time spent is documented, it refers only to time spent today by the signer, or if indicated, combined time spent today by collaborating physician/nurse practitioner. LUIS WHITE Apr 19, 2017 16:36
--- NOTE | 2017-04-19 17:01 | HHI.IDPN ---
Subjective Subjective Remarks Family meeting with palliative Medicine in progress bx confirmed prostatic ca In DI , bandemia noted Now on Non rebreather no fever rate controlled off pressors Antibiotics zosyn Allergies: Coded Allergies: No Known Allergies (Verified Allergy, Unknown, 02/04/06) Objective . Vital Signs Date Time Temp Pulse Resp B/P Pulse Ox O2 Delivery O2 Flow Rate FiO2 04/19/17 16:00 97.7 82 22 129/65 04/19/17 16:00 82 04/19/17 15:00 68 23 113/63 99 04/19/17 14:00 89 26 140/61 98 04/19/17 14:00 89 04/19/17 13:00 81 21 126/61 95 04/19/17 12:00 85 04/19/17 12:00 97.6 85 22 148/81 94 04/19/17 11:00 80 20 131/68 96 04/19/17 10:00 83 04/19/17 10:00 149 21 136/72 94 04/19/17 09:00 81 21 121/74 85 04/19/17 08:59 94 Partial Rebreather 04/19/17 08:00 77 04/19/17 08:00 97.5 73 18 123/64 04/19/17 07:00 75 20 141/76 04/19/17 06:00 77 04/19/17 06:00 77 20 146/72 100 04/19/17 05:00 78 26 144/69 97 04/19/17 04:00 97.9 90 26 140/97 93 04/19/17 04:00 90 04/19/17 02:00 83 04/19/17 00:00 98.1 78 23 142/72 04/19/17 00:00 78 04/18/17 22:00 99 04/18/17 20:00 87 04/18/17 20:00 97.8 87 24 134/60 95 04/18/17 18:00 90 04/18/17 04/18/17 04/19/17 14:59 22:59 06:59 Intake Total 2514 ml 2031 ml 1687 ml Output Total 2900 ml 1700 ml 1300 ml Balance -386 ml 331 ml 387 ml Intake Oral 500 ml IV Total 2014 ml 2031 ml 1687 ml Output Urine Total 2900 ml 1700 ml 1300 ml # Bowel Movements 1 0 0 . Laboratory Tests Test 04/17/17 04/18/17 04/19/17 19:15 04:00 15:20 Hemoglobin 9.6 GM/DL 10.2 GM/DL 7.9 GM/DL Hematocrit 28.2 % 29.7 % 24.0 % White Blood Count 12.4 TH/MM3 8.8 TH/MM3 Red Blood Count 3.63 MIL/MM3 2.87 MIL/MM3 Mean Corpuscular Volume 81.6 FL 83.4 FL Mean Corpuscular Hemoglobin 28.1 PG 27.5 PG Mean Corpuscular Hemoglobin 34.5 % 33.0 % Concent Red Cell Distribution Width 17.3 % 17.4 % Platelet Count 62 TH/MM3 43 TH/MM3 Mean Platelet Volume 9.7 FL 9.2 FL Neutrophils (%) (Auto) % 82.6 % Lymphocytes (%) (Auto) % 12.3 % Monocytes (%) (Auto) % 4.6 % Eosinophils (%) (Auto) % 0.4 % Basophils (%) (Auto) % 0.1 % Neutrophils # (Auto) TH/MM3 7.3 TH/MM3 Lymphocytes # (Auto) TH/MM3 1.1 TH/MM3 Monocytes # (Auto) TH/MM3 0.4 TH/MM3 Eosinophils # (Auto) TH/MM3 0.0 TH/MM3 Basophils # (Auto) TH/MM3 0.0 TH/MM3 CBC Comment AUTO DIFF AUTO DIFF Differential Total Cells 100 100 Counted Neutrophils % (Manual) 64 % 69 % Band Neutrophils % 9 % 17 % Lymphocytes % 14 % 14 % Monocytes % 4 % Neutrophils # (Manual) 10.2 TH/MM3 7.6 TH/MM3 Metamyelocytes 3 % Myelocytes 6 % Nucleated Red Blood Cells 11 /100 WBC 5 /100 WBC Differential Comment FINAL DIFF FINAL DIFF MANUAL MANUAL Platelet Estimate LOW LOW Platelet Morphology Comment ENLARGED NORMAL Laboratory Tests Test 04/17/17 04/18/17 04/19/17 04/19/17 17:55 04:00 13:15 15:20 Sodium Level 165 MEQ/L 166 MEQ/L Potassium Level 3.1 MEQ/L 2.8 MEQ/L 2.6 MEQ/L Chloride Level 126 MEQ/L 125 MEQ/L Carbon Dioxide Level 28.6 MEQ/L 31.2 MEQ/L Anion Gap 10 MEQ/L 10 MEQ/L Blood Urea Nitrogen 24 MG/DL 21 MG/DL Creatinine 1.09 MG/DL 1.15 MG/DL Estimat Glomerular Filtration 65 ML/MIN 61 ML/MIN Rate Random Glucose 170 MG/DL 230 MG/DL Calcium Level 7.6 MG/DL 7.3 MG/DL Protein Corrected Calcium 8.3 MG/DL Magnesium Level 1.7 MG/DL Total Bilirubin 2.8 MG/DL Aspartate Amino Transf 83 U/L (AST/SGOT) Alanine Aminotransferase 75 U/L (ALT/SGPT) Alkaline Phosphatase 4224 U/L Total Protein 5.3 GM/DL Albumin 2.2 GM/DL Serum Osmolality 303 MOSM/KG Imaging Last Impressions Chest X-Ray 04/18/17599 Signed Impressions: Service Date/Time: Tuesday, April 18, 2017 03:36 - CONCLUSION: The examination is slightly limited due to motion artifact, however slight pulmonary edema and left midlung atelectasis is suspected. Abby Denson MD Renal Ultrasound 04/15/17 0000 Signed Impressions: Service Date/Time: April 10:58 - CONCLUSION: 1. No sonographic evidence for renal calculi or obstructive uropathy. 2. Redemonstration of 5.0 x 4.2 x 4.5 cm cyst in the superior pole of the right kidney. Bertrand Coronel MD Bone Biopsy CT 04/14/17599 Signed Impressions: Service Date/Time: Friday, April 14, 2017 16:22 - CONCLUSION: Uncomplicated CT guided biopsy. Kartik Santiago MD FACR Cholangiopancreatography MRI 04/14/17 0000 Signed Impressions: Service Date/Time: Friday, April 14, 2017 14:10 - CONCLUSION: 1. Cholelithiasis. Nonspecific gallbladder wall thickening and pericholecystic fluid. Findings can be seen with acute cholecystitis. 2. Common duct is within normal limits for age. 3. Right renal cyst. 4. Small amount of ascites and small bilateral pleural effusions. Robby Geiger MD Hepatobiliary Scan Nuclear Medicine 04/12/17 0000 Signed Impressions: Service Date/Time: Wednesday, April 12, 2017 12:54 - CONCLUSION: No activity within the biliary system or gallbladder at 2 hours. The findings suggest biliary obstruction or hepatocellular dysfunction. Cystic duct patency cannot be assessed without activity in the biliary system. Delayed imaging may be helpful for further evaluation of this patient. Esteban Murphy MD ADDENDUM: On 24 hour delayed scanning, again no activity is identified in the GI tract. No significant activity is present in the biliary tree. Finding would be consistent with severe hepatocellular dysfunction and cholestatic physiology versus high-grade biliary obstruction. Cristobal Cárdenas MD Chest CT 04/10/17 0000 Signed Impressions: Service Date/Time: Monday, April 10, 2017 18:39 - CONCLUSION: Minimal bibasilar parenchymal changes are evident. There is no evidence for a primary carcinoma of the lung. There is mild dilatation of the ascending aorta. Moderate vascular calcifications are noted. There is no pericardial effusion. Review of bone windows reveals what looks like widespread sclerotic metastatic disease. This could be biopsied percutaneously for diagnosis. Prostate would be the most likely diagnosis to cause this. Kartik Santiago MD FACR Abdomen/Pelvis CT 04/10/17 0000 Signed Impressions: Service Date/Time: Monday, April 10, 2017 18:39 - CONCLUSION: 1. 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 The right iliac crest could easily be biopsied percutaneously for diagnosis. 2. Prominent gallbladder with gallstones. 3. Site of primary is not identified. 4. There is no evidence for metastatic disease to the liver. Kartik Santiago MD FACR Liver Ultrasound 04/09/17 0000 Signed Impressions: Service Date/Time: Sunday, April 09, 2017 14:35 - CONCLUSION: 1. Cholelithiasis. 2. Echogenic liver compatible with fatty infiltration or hepatocellular disease. Alexandru Souza MD Physical Exam CONSTITUTIONAL/GENERAL: This is a thin elderly chronically ill appaering patient with stigmata of rapid weight loss, in no apparent distress. TUBES/LINES/DRAINS: SKIN: + minimal jaundice, rashes, or lesions.Skin temperature appropriate. Not diaphoretic. CARDIOVASCULAR:irregular rate and rhythm without murmurs, gallops, or rubs. Afib on monitor RESPIRATORY/CHEST: Symmetric, unlabored respirations. Clear to auscultation. GASTROINTESTINAL: Abdomen soft,not tender ; negative Wyatt, nondistended. No hepato-splenomegaly, or palpable masses. No guarding. Bowel sounds decerased GENITOURINARY: Without palpable bladder distension. Huerta catheter in place with clear yellow urine MUSCULOSKELETAL: Extremities without clubbing, cyanosis, or edema. NEUROLOGICAL: Very lethargic to obtunded PSYCHIATRIC: No obvious anxiety/depression. no apparent hallucinations or other psychotic thought process. 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 biliary obstruction from primary tumor - no e/o ca however on CT CT chest not sugg of PNA, clin pic not supporting dx of PNA either Abx associated diarrhea, c.diff neagtive Probable transition to comfort measures, pending family meeting REC's: dc zosyn - monitor wbc/ bandemia if family electing to continue aggressive care Jeannette Chin RN, MD Apr 19, 2017 17:01
[2017-04-19 18:27] LABS: CALCIUM-PROTEIN CORRECTED 8.2 MG/DL (8.5-10.1); TOTAL BILIRUBIN ADULT 1.9 MG/DL (0.2-1.0)
== END 2017-04-19 20:15 | disposition hospice, inpatient (51) | DRG 871 ==
LOC: NEPE 10:22 → NEDA 13:24 → HOCA 15:40 → HIME 04-10 02:55
PROVIDERS: ADMIT Surgery Surgical Critical Care; ATTEND Surgery Surgical Critical Care
PROC: B543ZZA Ultrasonography of Right Jugular Veins, Guidance (ICD-10-PCS; 2017-04-10)
PROC: 05HM33Z Insertion of Infusion Device into Right Internal Jugular Vein, Percutaneous Approach (ICD-10-PCS; 2017-04-10)
PROC: 07DR3ZX Extraction of Iliac Bone Marrow, Percutaneous Approach, Diagnostic (ICD-10-PCS; principal; 2017-04-14)
DX: A41.9 Sepsis, unspecified organism (principal); J96.01 Acute respiratory failure with hypoxia; R65.21 Severe sepsis with septic shock; I47.2 Ventricular tachycardia; I11.0 Hypertensive heart disease with heart failure; N17.9 Acute kidney failure, unspecified; K80.01 Calculus of gallbladder with acute cholecystitis with obstruction; Z51.5 Encounter for palliative care; C79.51 Secondary malignant neoplasm of bone; I50.22 Chronic systolic (congestive) heart failure; E23.2 Diabetes insipidus; E46 Unspecified protein-calorie malnutrition; M62.82 Rhabdomyolysis; I42.0 Dilated cardiomyopathy; J98.11 Atelectasis; C61 Malignant neoplasm of prostate; E86.0 Dehydration; E11.9 Type 2 diabetes mellitus without complications; I25.10 Atherosclerotic heart disease of native coronary artery without angina pectoris; K76.0 Fatty (change of) liver, not elsewhere classified; D64.9 Anemia, unspecified; K59.00 Constipation, unspecified; E61.1 Iron deficiency; I44.7 Left bundle-branch block, unspecified; E78.5 Hyperlipidemia, unspecified; I08.3 Combined rheumatic disorders of mitral, aortic and tricuspid valves; E83.39 Other disorders of phosphorus metabolism; I48.91 Unspecified atrial fibrillation; D69.59 Other secondary thrombocytopenia; N28.1 Cyst of kidney, acquired; Z66 Do not resuscitate; Z68.23 Body mass index [BMI] 23.0-23.9, adult; Z79.84 Long term (current) use of oral hypoglycemic drugs
CPT/HCPCS: 20225; 36430; 36556; 71010; 71250; 74176; 74181; 76377; 76705; 76775; 76937; 77012; 78226; 80048; 80053; 80074; 80076; 81001; 82103; 82105; 82248; 82378; 82390; 82550; 82552; 82570; 82607; 82728; 82747; 82784; 82785; 82948; 82977; 83010; 83520; 83540; 83550; 83605; 83615; 83735; 83880; 83930; 83935; 84075; 84100; 84153; 84154; 84155; 84165; 84300; 84439; 84443; 84466; 84481; 84484; 84588; 85007; 85014; 85018; 85025; 85027; 85060; 85384; 85610; 85730; 86022; 86038; 86256; 86301; 86850; 86880; 86900; 86901; 86920; 87040; 87205; 87493; 87641; 88305; 88307; 88341; 88342; 93005; 93306; 94664; 99152; 99153; A9537; C1830; C9113; J0610; J1650; J1720; J1815; J1956; J2060; J2250; J2370; J2405; J2543; J2597; J3010; J3480; J7030; J7040; J7050; J7060; J7070; P9016